=== PATIENT | male | born 1975 | race Caucasian/White ===

== ENCOUNTER → 2017-01-18 | Outpatient (CLI) | payer OTHER ==
[~2017-01-18] MED LIST: BUTA1CAP17 PO; CEPH500C PO; CETI10TA84 PO; MULT-506 PO; RANI150T3 PO; ROPI4TAB3 PO; SULF800T23 PO
--- NOTE | 2017-01-18 16:34 | DIAGNOSTIC IMAGING REPORT ---
SINUS CT CT DOSE: 277.22 mGycm HISTORY: SINUSITIS, PAIN OF RIGHT EYE TECHNIQUE: Multiaxial CT images of the paranasal sinuses were performed and reformatted in the coronal plane without the use of contrast. COMPARISON: None. FINDINGS: Partial opacification of the left frontoethmoidal recess and mild mucosal thickening within the left anterior ethmoid air cells. The frontal sinuses and sphenoid sinuses are clear. Mild mucosal thickening within the bilateral maxillary sinuses. There is a 2 cm retention cyst within the floor the left maxillary sinus. Small left-sided zulema bullosa. The mastoid air cells are clear. No fluid levels within the paranasal sinuses. Mild right nasal septal deviation. The bilateral maxillary ostia are partially opacified. The lamina papyracea and orbital floors are intact. The globes and retrobulbar fat are maintained. The visualized brain parenchyma is unremarkable. IMPRESSION: Mild mucosal thickening within the paranasal sinuses as described above. The orbits are unremarkable. No fluid levels within the paranasal sinuses. Electronically signed by: Edy Corbett M.D. 01/18/2017 4:32 PM Dictated Date/Time: 01/18/2017 4:27 PM
== END | disposition home or self-care (01) ==
LOC: C.CTS 15:59
PROVIDERS: ATTEND Family Medicine
DX: J30.9 Allergic rhinitis, unspecified (principal); H57.11 Ocular pain, right eye

== ENCOUNTER 2017-02-18 21:24 | Emergency (ER) | payer OTHER ==
[~2017-02-18] VITALS: Ht 167.6 cm; Wt 95.9 kg
[~2017-02-18 21:24] MED LIST changes: -CEPH500C PO; -CETI10TA84 PO; -MULT-506 PO; -RANI150T3 PO; -ROPI4TAB3 PO; -SULF800T23 PO
[2017-02-18 21:32] VITALS: TEMP 36.6; Ht 167.6 cm; Wt 95.9 kg
[2017-02-18] MEDS ORDERED: IBUPROFEN 600 MG TAB PO STA (21:42)
--- NOTE | 2017-02-18 22:09 | DIAGNOSTIC IMAGING REPORT ---
RIGHT TOE(S) MIN 2 VIEWS CLINICAL HISTORY: right great toe pain/injury Right trauma. Pain. COMPARISON: None. DISCUSSION: The bones and joint spaces appear intact. There is no evidence of fracture, dislocation or bony disease. There is no evidence for soft tissue swelling. IMPRESSION: Negative study. Electronically signed by: Loi Linton M.D. 02/18/2017 10:07 PM Dictated Date/Time: 02/18/2017 10:07 PM
--- NOTE | 2017-02-18 22:19 | EMERGENCY ROOM VISIT NOTE ---
ED Visit Note First contact with patient: 21:37 CHIEF COMPLAINT: Right great toe injury HISTORY OF PRESENT ILLNESS: This 41-year-old male presents the ER with chief complaint of right great toe injury. The patient states that he tripped 2 days ago and injured his right great toe. The patient states he feels numbness and tingling in the toe. The patient denies any foot pain. REVIEW OF SYSTEMS: 6 system review was performed and was negative unless stated otherwise in history of present illness. PMH: The patient is healthy; back surgery, ankle surgery, stomach surgery SOCIAL HISTORY: Patient lives with his girlfriend. The patient denies any tobacco or alcohol use. PHYSICAL EXAM: Vital Signs: Were reviewed Reviewed Nurse's notes. GENERAL: 41- year-old white male appears in no acute distress. MENTAL Status: Alert and oriented 3. RIGHT FOOT: No gross bony deformity noted. No erythema or edema noted. The patient's tenderness palpation over the entire great toe. Limited range of motion secondary to pain. EMERGENCY DEPARTMENT COURSE: The patient was evaluated. The patient was given Motrin 600 mg by mouth for pain. X-ray of the right great toe was ordered and interpreted by the radiologist and myself. DIAGNOSTICS:RIGHT TOE(S) MIN 2 VIEWS CLINICAL HISTORY: right great toe pain/injury Right trauma. Pain. COMPARISON: None. DISCUSSION: The bones and joint spaces appear intact. There is no evidence of fracture, dislocation or bony disease. There is no evidence for soft tissue swelling. IMPRESSION: Negative study. Electronically signed by: Loi Linton M.D. 02/18/2017 10:07 PM The patient was informed of the findings. The patient was independently evaluated by Dr. Leal who agrees with treatment plan. The patient was placed in a postop shoe. The patient was discharged home in stable condition. DIAGNOSIS: Right great toe contusion DISCHARGE INSTRUCTIONS & TREATMENT: Ibuprofen 600 mg every 6 hours with food for pain. Wear the postop shoe until pain is tolerable wearing a normal shoe. If symptoms persist or worsen, follow-up with your family doctor. Problem List Medical Problems: (1) FX MEDIAL MALLEOLUS-CLOS Status: Resolved (2) FX METATARSAL-CLOSED Status: Resolved (3) POSTLAMINECT SYND-LUMBAR Status: Chronic (4) REFLEX SYMPATHETIC DYSTROPHY, LOWER LIMB Status: Chronic Current/Historical Medications Scheduled Ropinirole Hydrochloride (Requip), 4 MG PO HS Scheduled PRN Bcleiakkfw-Fegnkbqmlzklx-Pqapx (Fioricet), 1 TAB PO BID PRN for Pain Cetirizine (Zyrtec), 10 MG PO DAILY PRN for ALLERGIC REACTION Ranitidine Hcl (Zantac), 150 MG PO BID PRN for Indigestion Allergies Coded Allergies: Fentanyl (Verified Allergy, Unknown, Vomiting, 08/17/15) Penicillins (Verified Allergy, Unknown, 08/17/15) Vital Signs Date Time Temp Pulse Resp B/P Pulse Ox O2 Delivery O2 Flow Rate FiO2 02/18/17 21:32 36.6 67 18 135/81 96 Room Air Medications Administered Medications (Trade) Dose Ordered Sig/Fletcher Route Start Time Stop Time Status Last Admin Dose Admin Ibuprofen (Motrin Tab) 600 mg NOW STAT PO 02/18/17 21:42 02/18/17 21:43 DC 02/18/17 22:07 600 MG Departure Information Referrals Fam Perry D.OJanes (PCP) Patient Instructions My [facility]
--- NOTE | 2017-02-18 22:20 | EMERGENCY ROOM VISIT NOTE ---
ED Visit Note First contact with patient: 21:37 I did evaluate and examine this patient myself. I did guide management for the patient. I agree with the APC's assessment as discussed. Please see the APC's dictation for further details. I did independently review the x-rays. There is no fracture. He will follow up with his doctor.
[2017-02-18 22:24] VITALS: BP 123/73; PULSE 63; O2SAT 96
[2017-03-17] MEDS ORDERED: MULT-506 PO (10:14)
[2017-03-17] MEDS ORDERED: ROPI4TAB3 PO (13:40)
== END 2017-02-18 22:32 | disposition home or self-care (01) ==
LOC: C.EDB 21:24 → C.EDD 22:32
DX: S90.111A Contusion of right great toe without damage to nail, initial encounter (principal); W01.0XXA Fall on same level from slipping, tripping and stumbling without subsequent striking against object, initial encounter; M96.1 Postlaminectomy syndrome, not elsewhere classified; G90.529 Complex regional pain syndrome I of unspecified lower limb

== ENCOUNTER → 2017-02-28 | Outpatient (CLI) | payer OTHER ==
[~2017-02-28] MED LIST changes: +CEPH500C PO; +CETI10TA84 PO; +MULT-506 PO; +RANI150T3 PO; +ROPI4TAB3 PO; +SULF800T23 PO
--- NOTE | 2017-02-28 16:00 | DIAGNOSTIC IMAGING REPORT ---
CT SCAN OF THE PARANASAL SINUSES CLINICAL HISTORY: Chronic sinusitis. Nasal septum deviation. COMPARISON STUDY: CT scan of the paranasal sinuses dated 01/18/2017. TECHNIQUE: High-resolution CT scan of the paranasal sinuses is performed. Images are reviewed in the axial, sagittal, and coronal planes. IV contrast was not administered for this examination. The examination is performed using the fusion protocol. CT DOSE: 615.99 mGy.cm FINDINGS: Maxillary antra: There is mild nodular mucosal thickening seen bilaterally. A retention cyst is suggested on the left measuring up to 1.7 cm. Anterior ethmoid sinuses: Trace mucosal thickening is seen bilaterally. Posterior ethmoid sinuses: Clear. Sphenoid sinuses: Trace mucosal thickening is seen on the left. Clear on the right. Frontal sinuses: Trace mucosal thickening is seen on the left. Clear on the right. Ostiomeatal complexes: Pain bilaterally, with significant narrowing of the left secondary to mucosal thickening. Frontoethmoidal and sphenoethmoidal recesses: Patent bilaterally. The left sphenoethmoidal recess is narrowed by mucosal thickening. Carotid arteries: The carotid arteries are covered and without septal attachments. Ethmoid roofs: There is slightly asymmetric elevation of the right ethmoid roof as compared to the left. Nasal turbinates: There is zulema bullosa of the left middle nasal turbinate. Nasal septum: There is minimal leftward deviation of the bony nasal septum. Optic nerves: Covered. Orbits: The bony orbits are intact. Orbital contents are normal in appearance. Calvarium: The imaged calvarium is normal in appearance Mastoid air cells: Well pneumatized. Brain parenchyma: Partially visualized brain parenchyma is within normal limits. IMPRESSION: Mild paranasal sinus disease as above, not significantly changed from 01/18/2017. Electronically signed by: Blake Whipple M.D. 02/28/2017 3:59 PM Dictated Date/Time: 02/28/2017 3:54 PM
== END | disposition home or self-care (01) ==
LOC: C.CTS 15:43
DX: J34.2 Deviated nasal septum (principal); J32.9 Chronic sinusitis, unspecified; J34.3 Hypertrophy of nasal turbinates; R09.81 Nasal congestion

== ENCOUNTER → 2017-03-14 | Outpatient (CLI) | payer OTHER ==
[2017-03-14 16:35] LABS: BASO % 0.2 %; BASO ABS # 0.02 K/uL (0-0.2); COMPLETE YES; EOS % 2.3 %; HEMATOCRIT 43.7 % (42-52); IG% 0.4 %; LYMPH % 19.4 %; LYMPH ABS # 1.61 K/uL (1.2-3.4); MEAN CELL VOLUME 85.9 fL (80-100); MEAN CORPUSCULAR HEMOGLOBIN 28.5 pg (25-34); MEAN CORPUSCULAR HGB CONC 33.2 g/dl (32-36); MEAN PLATELET VOLUME 8.9 fL (7.4-10.4); MONO % 5.9 %; NEUT % 71.8 %; PLATELET COUNT 348 K/uL (130-400); RED BLOOD COUNT 5.09 M/uL (4.7-6.1); WHITE BLOOD COUNT 8.32 K/uL (4.8-10.8)
[2017-03-14 16:44] LABS: PARTIAL THROMBOPLASTIN RATIO 1.1; PROTHROMBIN TIME (PATIENT) 10.6 SECONDS (9.0-12.0)
[2017-03-14 16:55] LABS: POTASSIUM 3.6 mmol/L (3.5-5.1)
== END | disposition home or self-care (01) ==
LOC: C.LAB 15:30
DX: Z01.818 Encounter for other preprocedural examination (principal)

== ENCOUNTER 2017-03-15 13:58 | Emergency (ER) | payer OTHER ==
[~2017-03-15] VITALS: Ht 167.6 cm; Wt 95.6 kg
[~2017-03-15 13:58] MED LIST changes: -CEPH500C PO; -CETI10TA84 PO; -MULT-506 PO; -RANI150T3 PO; -ROPI4TAB3 PO; -SULF800T23 PO
[2017-03-15 14:08] VITALS: TEMP 36.7; Ht 167.6 cm; Wt 95.6 kg
[2017-03-15] MEDS ORDERED: CEFTRIAXONE SOD INJ 1 GM ADDVIAL IV STA (14:22)
[2017-03-15 14:39] LABS: BASO % 0.3 %; BASO ABS # 0.02 K/uL (0-0.2); COMPLETE YES; EOS % 2.9 %; HEMATOCRIT 44.2 % (42-52); IG% 0.2 %; LYMPH % 22.4 %; LYMPH ABS # 1.49 K/uL (1.2-3.4); MEAN CELL VOLUME 85.2 fL (80-100); MEAN CORPUSCULAR HEMOGLOBIN 27.6 pg (25-34); MEAN CORPUSCULAR HGB CONC 32.4 g/dl (32-36); MEAN PLATELET VOLUME 8.7 fL (7.4-10.4); MONO % 5.9 %; NEUT % 68.3 %; PLATELET COUNT 361 K/uL (130-400); RED BLOOD COUNT 5.19 M/uL (4.7-6.1); WHITE BLOOD COUNT 6.66 K/uL (4.8-10.8)
[2017-03-15 14:55] LABS: BUN/CREATININE RATIO 12.8 (10-20); CREATININE 1.3 mg/dl (0.60-1.40)
[2017-03-15] MEDS ORDERED: SULFAMETHOXAZOLE/TRIMETHOPRIM DS 800/160MG TAB PO STA (15:31)
[2017-03-15] MEDS ORDERED: CEPH500C PO (15:46)
[2017-03-15] MEDS ORDERED: SULF800T23 PO (15:46)
--- NOTE | 2017-03-15 15:47 | EMERGENCY ROOM VISIT NOTE ---
History First contact with patient: 14:13 Chief Complaint: SWELLING TO EXTREMITY Stated Complaint: SWELLING TO LEFT LEG History of Present Illness The patient is a 41 year old male who presents to the Emergency Room with complaints of left leg redness, swelling, warmth and drainage. The patient states that last Saturday he was walking the dogs and the retractable leash pulled across his leg causing an abrasion. He states that it seemed to be doing well until 2 days ago when he developed redness, swelling, warmth and drainage. The patient's family member has been putting antibiotic ointment on the open area and they state because of this the redness has actually subsided. He has not had any fevers. He has not had any pain in his chest or trouble breathing. He rates his discomfort a 9/10. Review of Systems A 10 system review of systems was completed with positives and pertinent negatives listed in the HPI. Past Medical/Surgical History Medical Problems: (1) FX MEDIAL MALLEOLUS-CLOS (2) FX METATARSAL-CLOSED (3) POSTLAMINECT SYND-LUMBAR (4) REFLEX SYMPATHETIC DYSTROPHY, LOWER LIMB Family History CVA Diabetes mellitus Social History Smoking Status: Never Smoker Drug Use: none Marital Status: single Occupation Status: employed Current/Historical Medications Scheduled Cephalexin Monohydrate (Keflex), 500 MG PO QID Multivitamin (Multivitamin), 1 TAB PO DAILY Ropinirole Hydrochloride (Requip), 4 MG PO HS Sulfa/Trimethoprim (Bactrim Ds 800MG/160MG), 1 TAB PO BID Scheduled PRN Cetirizine (Zyrtec), 10 MG PO DAILY PRN for ALLERGIC REACTION Ranitidine Hcl (Zantac), 150 MG PO BID PRN for Indigestion Allergies Coded Allergies: Fentanyl (Verified Allergy, Severe, Vomiting, 03/15/17) Penicillins (Verified Allergy, Unknown, UNKNOWN, 03/15/17) Uncoded Allergies: STEROIDS (Allergy, Unknown, EYE PROBLEM--OPTHAMOLOGIST STATES NO STEROIDS, 03/14/17) Physical Exam Vital Signs Date Time Temp Pulse Resp B/P (MAP) Pulse Ox O2 Delivery O2 Flow Rate FiO2 03/15/17 16:02 66 16 135/84 98 03/15/17 14:08 36.7 76 16 120/74 96 Room Air Physical Exam VITALS: Vitals are noted on the nurse's note and reviewed by myself. Vital signs stable. The patient is afebrile. GENERAL: This is a 41-year-old male, in no acute distress, nondiaphoretic, well- developed well-nourished. SKIN: There is a somewhat superficial abrasion to the left anterior tib-fib that is transverse. There is some granulation tissue and mild serous sanguinous drainage. There is erythema surrounding this wound. There does not appear to be any involvement of the joints. There is no tenting of the skin. Capillary reflex less than 2 seconds. HEAD: Normocephalic atraumatic. EARS: The external ears are normal in appearance. EYES: Pupils equal round and reactive to light and accommodation. Conjunctivae without injection, sclerae without icterus. Extraocular movements intact. NOSE: Patent, turbinates without inflammation or discharge. MOUTH: Mucous membranes moist. Tonsils are not enlarged. Pharynx without erythema or exudate. Uvula midline. Airway patent. Tongue does not deviate. NECK: Supple without nuchal rigidity. No lymphadenopathy. No thyromegaly. Cervical spine is nontender. No JVD. HEART: Regular rate and rhythm without murmurs gallops or rubs. LUNGS: Clear to auscultation bilaterally without wheezes, rales or rhonchi. No dullness to percussion. No retractions or accessory muscle use. MUSCULOSKELETAL: Skin to the left lower extremity as above. Full range of motion without joint tenderness in all extremities. There is tenderness to palpation in the area of erythema, warmth and open wound. Normal gait. Strength 5/5 throughout. NEURO: Patient was alert and oriented to person place and time. No focal neurological deficits. Medical Decision & Procedures Laboratory Results 03/15/17 14:20 Red Blood Count 5.19, Mean Corpuscular Volume 85.2, Mean Corpuscular Hemoglobin 27.6, Mean Corpuscular Hemoglobin Concent 32.4, Mean Platelet Volume 8.7, Neutrophils (%) (Auto) 68.3, Lymphocytes (%) (Auto) 22.4, Monocytes (%) (Auto) 5.9, Eosinophils (%) (Auto) 2.9, Basophils (%) (Auto) 0.3, Neutrophils # (Auto) 4.56, Lymphocytes # (Auto) 1.49, Monocytes # (Auto) 0.39, Eosinophils # (Auto) 0.19, Basophils # (Auto) 0.02 03/15/17 14:20 Test 03/15/17 14:20 White Blood Count 6.66 K/uL (4.8-10.8) Red Blood Count 5.19 M/uL (4.7-6.1) Hemoglobin 14.3 g/dL (14.0-18.0) Hematocrit 44.2 % (42-52) Mean Corpuscular Volume 85.2 fL (80-100) Mean Corpuscular Hemoglobin 27.6 pg (25-34) Mean Corpuscular Hemoglobin Concent 32.4 g/dl (32-36) Platelet Count 361 K/uL (130-400) Mean Platelet Volume 8.7 fL (7.4-10.4) Neutrophils (%) (Auto) 68.3 % Lymphocytes (%) (Auto) 22.4 % Monocytes (%) (Auto) 5.9 % Eosinophils (%) (Auto) 2.9 % Basophils (%) (Auto) 0.3 % Neutrophils # (Auto) 4.56 K/uL (1.4-6.5) Lymphocytes # (Auto) 1.49 K/uL (1.2-3.4) Monocytes # (Auto) 0.39 K/uL (0.11-0.59) Eosinophils # (Auto) 0.19 K/uL (0-0.5) Basophils # (Auto) 0.02 K/uL (0-0.2) RDW Standard Deviation 41.7 fL (36.4-46.3) RDW Coefficient of Variation 13.5 % (11.5-14.5) Immature Granulocyte % (Auto) 0.2 % Immature Granulocyte # (Auto) 0.01 K/uL (0.00-0.02) Anion Gap 11.0 mmol/L (3-11) Est Creatinine Clear Calc Drug Dose 79.3 ml/min Estimated GFR () 77.5 Estimated GFR (Non- 66.8 BUN/Creatinine Ratio 12.8 (10-20) Total Bilirubin 0.6 mg/dl (0.2-1) Aspartate Amino Transf (AST/SGOT) 13 U/L (15-37) Alanine Aminotransferase (ALT/SGPT) 26 U/L (12-78) Total Protein 7.7 gm/dl (6.4-8.2) Albumin 3.9 gm/dl (3.4-5.0) Globulin 3.8 gm/dl (2.5-4.0) Albumin/Globulin Ratio 1.0 (0.9-2) Medications Administered Medications (Trade) Dose Ordered Sig/Fletcher Route Start Time Stop Time Status Last Admin Dose Admin Ceftriaxone Sodium (Rocephin Inj) 1 gm NOW STAT IV 03/15/17 14:22 03/15/17 14:24 DC 03/15/17 14:38 1 GM Trimethoprim/ Sulfamethoxazole (Septra Ds 800/ 160MG Tab) 1 tab NOW STAT PO 03/15/17 15:31 03/15/17 15:32 DC 03/15/17 15:31 1 TAB ED Course The patient was seen and examined. Previous visits were reviewed. The patient does not have a fever or leukocytosis. A wound culture is pending. The patient presents to the emergency department with isolated left lower extremity cellulitis secondary to an abrasion. He is nontoxic in appearance, afebrile without leukocytosis. The patient was given 1 g IV Rocephin. He was given 1 oral Bactrim. He'll be placed on Bactrim and Keflex. He should return to the ER in 24-48 hours for a recheck. He was advised he may need additional IV antibiotics or potentially admission to the hospital if the cellulitis is worsening or not improving. The patient was also seen and examined by who agrees with the assessment and treatment plan. Medical Decision The differential diagnosis includes cellulitis, abscess, among others Impression Primary Impression: Cellulitis, leg Departure Information Dispostion Home / Self-Care Condition GOOD Prescriptions Sulfa/Trimethoprim (Bactrim Ds 800MG/160MG) Tab 1 TAB PO BID for 7 Days, #14 TAB Prov: Criss Bedoya PA-C 03/15/17 Cephalexin Monohydrate (Keflex) 500 Mg Cap 500 MG PO QID for 7 Days, #28 CAP Prov: Criss Bedoya PA-C 03/15/17 Referrals Fam Perry D.O. (PCP) Forms HOME CARE DOCUMENTATION FORM, IMPORTANT VISIT INFORMATION, WORK / SCHOOL INSTRUCTIONS Patient Instructions Cellulitis - [facility], My [facility] Additional Instructions Clean the area with soap and water 1-2 times daily. You may try warm soaks. You may continue the antibiotic ointment. Bactrim and Keflex as prescribed, until finished Recheck with the emergency department or family doctor in 24-48 hours. Return sooner with any worsening redness, swelling, warmth, fevers. Work Instructions Return To Work: 3 days Problem Qualifiers Primary Impression: Cellulitis, leg Laterality: left Qualified Codes: L03.116 - Cellulitis of left lower limb
[2017-03-15 16:02] VITALS: BP 135/84; PULSE 66; O2SAT 98
--- NOTE | 2017-03-15 16:06 | EMERGENCY ROOM VISIT NOTE ---
ED Visit Note First contact with patient: 14:13 I have personally seen and evaluated the patient with the physician household assistant. I agree with the diagnostic/management decisions and have personally been involved in these decisions and agree with the diagnosis.
[2017-03-15 17:18] LABS: CALCIUM 9.6 mg/dl (8.5-10.1)
[2017-03-17] MEDS ORDERED: MULT-506 PO (10:14)
[2017-03-17] MEDS ORDERED: ROPI4TAB3 PO (13:40)
== END 2017-03-15 16:06 | disposition home or self-care (01) ==
LOC: C.EDB 13:59 → C.EDD 16:06
DX: L03.116 Cellulitis of left lower limb (principal); S80.812A Abrasion, left lower leg, initial encounter; W22.8XXA Striking against or struck by other objects, initial encounter; Y92.89 Other specified places as the place of occurrence of the external cause; Y93.K1 Activity, walking an animal; Z82.49 Family history of ischemic heart disease and other diseases of the circulatory system; Z83.3 Family history of diabetes mellitus; Z79.899 Other long term (current) drug therapy

== ENCOUNTER 2017-03-17 17:59 | Emergency (ER) | payer OTHER ==
[~2017-03-17] VITALS: Ht 167.6 cm; Wt 94.5 kg
[~2017-03-17 17:59] MED LIST changes: -BUTA1CAP17 PO; +CEPH500C PO; +MULT-506 PO; +ROPI4TAB3 PO; +SULF800T23 PO
[2017-03-17 18:02] VITALS: BP 134/86; PULSE 86; TEMP 36.9; O2SAT 95; Ht 167.6 cm; Wt 94.5 kg
--- NOTE | 2017-03-17 18:23 | EMERGENCY ROOM VISIT NOTE ---
History Report prepared by Lorenzo: Igor Syed Under the Supervision of: Dr. Fercho Elizondo M.D. First contact with patient: 18:04 Chief Complaint: WOUND RECHECK Stated Complaint: WOUND RECHECK Nursing Triage Summary: triage note: pt presents for recheck of wound to left leg. "i think it might be a bit better." pt reports "i have dots on my arms and they are itchy." History of Present Illness The patient is a 41 year old male who presents to the Emergency Room for left leg wound recheck. The patient had a wound from a dog leash about 8 days ago. 3 days ago, the patient started having erythema and swelling around the wound area. He was evaluated in the Emergency Room 2 days ago and he was placed on antibiotics with some relief. The patient reports some discharge from the wound. As per , the wound has neither improved nor worsened. He currently rates a pain intensity of 3/10. Yesterday, the patient started having red bumps on arms and legs bilaterally that are itchy. He had one episode of vomiting last night with shakiness. He denies fevers, chills, trouble swallowing, chest pain, shortness of breath, or any other complaints. He denies any history of diabetes. His tetanus shot is up-to-date. Source of History: patient Onset: about 8 days ago Position: leg (left) Symptom Intensity: 3/10 Quality: other (wound) Modifying Factors (Relieving): other (antibiotic with some relief) Associated Symptoms: + vomiting, No fevers, No chills, No chest pain, No SOB Review of Systems See HPI for pertinent positives & negatives. A total of 10 systems reviewed and were otherwise negative. Past Medical & Surgical Medical Problems: (1) FX MEDIAL MALLEOLUS-CLOS (2) FX METATARSAL-CLOSED (3) POSTLAMINECT SYND-LUMBAR (4) REFLEX SYMPATHETIC DYSTROPHY, LOWER LIMB Family History CVA Diabetes mellitus Social History Smoking Status: Never Smoker Drug Use: none Marital Status: single Occupation Status: employed Current/Historical Medications Scheduled Cephalexin Monohydrate (Keflex), 500 MG PO QID Multivitamin (Multivitamin), 1 TAB PO DAILY Ropinirole Hydrochloride (Requip), 4 MG PO HS Sulfa/Trimethoprim (Bactrim Ds 800MG/160MG), 1 TAB PO BID Scheduled PRN Cetirizine (Zyrtec), 10 MG PO DAILY PRN for Allergy Symptoms Ranitidine Hcl (Zantac), 150 MG PO BID PRN for Indigestion Allergies Coded Allergies: Fentanyl (Verified Allergy, Severe, Vomiting, 03/15/17) Penicillins (Verified Allergy, Unknown, UNKNOWN, 03/15/17) Uncoded Allergies: STEROIDS (Allergy, Unknown, EYE PROBLEM--OPTHAMOLOGIST STATES NO STEROIDS, 03/14/17) Physical Exam Vital Signs Date Time Temp Pulse Resp B/P (MAP) Pulse Ox O2 Delivery O2 Flow Rate FiO2 03/17/17 18:02 36.9 86 18 134/86 95 Room Air Physical Exam General: Non-ill appearing, young male, in no acute distress. HEENT: Normal cephalic atraumatic. Pupils are equal round and reactive to light. Extraocular movements are intact. Oropharynx is pink with moist mucous membranes. No swelling of the mouth lips or tongue. Neck: Supple with a midline trachea. No meningeal signs or stiffness, no JVD or bruits. No Stridor. Chest: Clear to auscultation bilaterally. No wheezes or rhonchi. No increased work of breathing. Heart: regular rate and rhythm. Abdomen: Soft nontender, nondistended without rebound guarding or rigidity. Extremities: No cyanosis clubbing or edema. No calf tenderness or assymetry Left lower extremity has a wound that is healing by secondary intention, no cellulitis, some yellow serosanguineous, no pus. Spine/Back. Non tender to palpation. No CVA tenderness Skin: Good turgor without rashes. Arms and legs have areas consistent with poison val, no hives, or allergic reaction. Neurologic exam: Cranial nerves two through 12 are intact. Motor and sensation are intact and symmetrical throughout. Medical Decision & Procedures ED Course 1803: Past medical records reviewed. The patient was evaluated in room B10, and a complete history and physical examination were performed. 1820: Upon reevaluation, the patient is resting comfortably. I discussed the results and treatment plan with him. He verbalized agreement of the treatment plan. The patient was discharged home. Medical Decision Differential diagnosis includes but is not limited to healing wound, wound infection, cellulitis, poison val. Medication Reconciliation: I attest that I have personally reviewed the patient' s current medication list. Blood pressure Screening: Patient was found to have normal blood pressure on screening and does not require follow-up. This patient comes in for wound recheck he seems to be doing well. He is afebrile here. He had episode last night where he vomited and was pale but this may be unrelated as his been doing well otherwise. He also has a rash which is consistent with poison val. He has no evidence of allergic reaction at this point. There is no evidence of cellulitis around the wound and the wound is healing. It will take a while for this to heal in. He has nothing to suggest sepsis at this point. And he looks well. He is asymptomatic with exception of some mild pain around the wound site and itching from the poison val. I do think he would benefit from with the wound care clinic. I cleansed the wound and there is some yellowish serous sanguinous drainage. Bacitracin sterile dressing applied. he should continue the antibiotics use Benadryl if needed for itching and was warned that it could make him drowsy and do not take before drinking, driving, working . our case management team is going to get an appointment with care clinic in the next couple days for recheck. He should return to ER if: fever, redness or warmth, any new problems or concerns. Impression Primary Impression: Healing wound Additional Impression: Poison val Scribe Attestation The scribe's documentation has been prepared under my direction and personally reviewed by me in its entirety. I confirm that the note above accurately reflects all work, treatment, procedures, and medical decision making performed by me. Departure Information Dispostion Home / Self-Care Referrals Fam Perry D.O. (PCP) Forms HOME CARE DOCUMENTATION FORM, IMPORTANT VISIT INFORMATION, WORK / SCHOOL INSTRUCTIONS Patient Instructions My [facility] Additional Instructions Rest. Continue to use your antibiotics and continue to clean the wound and dress with bacitracin and sterile dressing. May use Benadryl 25 mg every 6 hours as needed for itching. Benadryl may make you drowsy and do not take before drinking, driving, working Follow-up with the wound care center in 1-2 days for recheck Return if: Fever or chills, worsening symptoms, redness or warmth, any new problems or concerns. Problem Qualifiers
[2017-03-17] MEDS ORDERED: CETI10TA84 PO (21:20)
[2017-03-17] MEDS ORDERED: RANI150T3 PO (22:54)
== END 2017-03-17 18:30 | disposition home or self-care (01) ==
LOC: C.EDB 18:00
DX: Z48.00 Encounter for change or removal of nonsurgical wound dressing (principal); L23.7 Allergic contact dermatitis due to plants, except food

== ENCOUNTER 2017-03-29 08:16 | Day surgery (SDC) | payer OTHER ==
[2017-03-14 10:14] VITALS: Ht 167.6 cm; Wt 93.2 kg
[~2017-03-29] VITALS: Ht 167.6 cm; Wt 93.2 kg
[~2017-03-29 08:16] MED LIST changes: -CEPH500C PO; +CETI10TA84 PO; +CLINDAMYCIN PHOS 150 MG/ML 2 ML VIAL IV SCH; +EpINEphrine INJ 1MG/ML AMP 1 MG/ML AMP ONE; +LIDOCAINE 4% MPF SOAK 5 ML = 1 DOSE TOP ONE; +LIDOCAINE/EPINEPHRINE 1% INJ 50 ML VIAL ONE; +OXYMETAZOLINE HCL 0.05% NA SPR 15 ML BTL SCH; +RANI150T3 PO; -SULF800T23 PO
[2017-03-29] MEDS: LACTATED RINGER'S 1000ML 1,000 ML IV SCH ×2 (09:00→12:36)
[2017-03-29] MEDS ORDERED: ONDANSETRON INJ 2 MG/ML 2 ML VIAL ONE (09:26)
[2017-03-29] MEDS ORDERED: DEXAMETHASONE SOD INJ 4 MG/ML VIAL ONE (09:26)
[2017-03-29] MEDS ORDERED: MIDAZOLAM HCL 1 MG/ML 2ML VIAL ONE (09:26)
[2017-03-29] MEDS ORDERED: LIDOCAINE HCL 2% 2 ML VIAL (20MG/ML) ONE (09:26)
[2017-03-29] MEDS ORDERED: PROPOFOL IV EMULSION 10 MG/ML 20 ML VIAL IV ONE ×2 (09:26→11:20)
[2017-03-29] MEDS ORDERED: FENTANYL CITRATE INJ 50 MCG/1 ML 2 ML VIAL ONE (09:26)
--- NOTE | 2017-03-29 10:36 | History & Physical Bridge - SC ---
H&P Re-Evaluation Bridge Note: I have examined the patient, reviewed the History & Physical and in the interval since the performance of the History & Physical I have noted the following changes of clinical significance: No changes noted
[2017-03-29] MEDS ORDERED: NEOSTIGMINE METHYLSULFATE 5 MG/5 ML SYR ONE (11:21)
[2017-03-29] MEDS ORDERED: GLYCOPYRROLATE INJ 0.2 MG/ML VIAL ONE ×2 (11:21→11:55)
[2017-03-29] MEDS ORDERED: ATROPINE SULFATE 0.1 MG/ML 5ML SYR IV PRN (11:30)
[2017-03-29] MEDS ORDERED: LABETALOL HCL IV 5 MG/ML 20ML IV PRN (11:30)
[2017-03-29] MEDS ORDERED: ONDANSETRON INJ 2 MG/ML 2 ML VIAL IV PRN ×2 (11:30→12:00)
[2017-03-29] MEDS ORDERED: HYDROmorphone INJ 2 MG/ML SYR/VIAL IV PRN (11:30)
[2017-03-29] MEDS ORDERED: EpINEphrine INJ 1MG/ML AMP 1 MG/ML AMP ONE (11:31)
[2017-03-29] MEDS ORDERED: LIDOCAINE 4% MPF SOAK 5 ML = 1 DOSE TOP ONE (11:31)
[2017-03-29] MEDS ORDERED: OXYMETAZOLINE HCL 0.05% NA SPR 15 ML BTL PRN (12:00)
[2017-03-29] MEDS ORDERED: HYDROCODONE/ACETAMOPHEN 5/325MG TAB PO PRN (12:00)
--- NOTE | 2017-03-29 12:00 | Discharge Instructions ---
Discharge Instructions Date of Service Mar 29, 2017. Admission Reason for Admission: Chronic Sinusitis, Acquired Deviated Septum Discharge Discharge Diagnosis / Problem: same Discharge Goals Goal(s): Therapeutic intervention Activity Recommendations Activity Limitations: as noted below 1. LIGHT ACTIVITY AND NO NOSE BLOWING FOR 2 WEEKS 2. NO DRIVING WHILE ON NORCO . Current Hospital Diet Patient's current hospital diet: Discharge Diet Recommended Diet: Regular Diet Procedures Procedures Performed: Image Guided Bilateral Endoscopic Sinus Surgery, Revision Septoplasty, Revision Bilateral Inferior Turbinate Reduction Pending Studies Studies pending at discharge: no Medical Emergencies . Who to Call and When: Medical Emergencies: If at any time you feel your situation is an emergency, please call 911 immediately. . Non-Emergent Contact Non-Emergency issues call your: Surgeon . . "Provider Documentation" section prepared by Ezio Wiggins. . VTE Core Measure Inpt VTE Proph given/why not?: SCD's
--- NOTE | 2017-03-29 12:17 | [facility] Operative Report ---
Operative Report Operative Date Mar 29, 2017. Pre-Operative Diagnosis Chronic Sinusitis, Acquired Deviated Septum Post-Operative Diagnosis Same Procedure(s) Performed Image Guided Bilateral Endoscopic Sinus Surgery, Revision Septoplasty, Revision Bilateral Inferior Turbinate Reduction Surgeon Dr. Wiggins Camera Assembler Surgeon(s) None Estimated Blood Loss 25 ml Findings 1. Left greater than right septal deviation 2. Moderate bilateral inferior turbinate hypertrophy 3. Mucosal thickening involving the bilateral maxillary, bilateral ethmoid, and left frontal sinuses 4. Large left zulema bullosa Specimens None Anesthesia Gen. endotracheal Complication(s) None Indications The patient is a 41-year-old male with a history of chronic rhinosinusitis which has been refractory to maximal medical therapy. He had previous septoplasty and bilateral inferior turbinate reduction by another surgeon but continued to have left greater than right septal deviation and bilateral inferior turbinate hypertrophy. He was found on CT scan to have bilateral estimated complex obstruction with bilateral maxillary and ethmoid sinus mucosal thickening as well as left frontal ethmoid recess thickening. He presents for the above-mentioned procedures and an outpatient elective basis. Description of Procedure After informed consent had been obtained from the patient, the patient's wheeled to the operating room and placed on the operating room table in the supine position. Monitors were placed and after induction of general endotracheal anesthesia, the patient was prepped in usual fashion for image guided endoscopic sinus surgery. The Ninjathat fusion headset was applied to the forehead and was registered, verified, and calibrated and used for the frontal sinus portion of the case. Lidocaine and epinephrine pledgets are placed into the bilateral nasal cavities and pressure applied. The left-sided pledget was removed and a Thurston elevator was used to medialize the left middle turbinate. The left middle turbinate and lateral nasal wall were injected with 1% lidocaine with 1:100,000 epinephrine. A lidocaine and epinephrine pledget was then placed into left middle meatus. The right side was then addressed in a similar fashion. The left-sided pledget was removed and a sickle knife was used to incise the left middle turbinate longitudinally in the lateral half of the middle turbinate was removed using straight Moises-Cut forceps and powered instrumentation. Of note there was polypoid tissue within the left zulema bullosa. An uncinectomy was then performed using a Thurston elevator, straight Moises -Cut forceps, and powered instrumentation. The natural ostia of the left maxilla sinus was identified and this was enlarged anteriorly, inferiorly, and posteriorly using backbiting forceps and powered istrumentation. An anterior ethmoidectomy was then performed using powered instrumentation. A curved frontal sinus suction was then inserted into the left frontal sinus. A #6 frontal sinus balloon was then inserted into the frontal recess and inflated to 12 mars of pressure to dilate the frontal recess tract. Polypoid tissue was removed from the frontal ethmoidal recess using powered instrumentation. A lidocaine and epinephrine pledget was then placed since the left ethmoid sinus. The right side was then addressed in a similar fashion except there was no zulema bullosa on this side and no frontal sinus surgery done on the side. The septum was then injected with 1% lidocaine with 1:100,000 epinephrine. After allowing adequate time for vasoconstriction, a #15 scalpel was used to make a left hemitransfixion incision through which the left-sided mucoperichondrial and mucoperiosteal flap was elevated. The patient had a previous septoplasty and there was not much remaining quadrangular cartilage. The patient's deviation was primarily due to the caudal septum being severely shifted to the left and therefore this was weakened using a crosshatching technique and a #15 scalpel. Several half mattress 3-0 chromic sutures were used to straighten out the caudal end of the septum. A 4-0 plain gut suture on a Haseeb needle was then used to perform a quilting stitch of the mucoperichondrial and mucoperiosteal flaps bilaterally to help prevent septal hematoma. A Sibley elevator was then used to infracture and subsequently outfractured the inferior turbinates bilaterally. These were injected with 1% lidocaine with 1-100,000 epinephrine. A 2.0 mm turbinate blade using powered instrumentation was then used to perform bilateral inferior turbinoplasties in a submucosal fashion. The sinonasal cavities were then suctioned. MeroGel nasal dressing was placed in the bilateral ethmoid cavities. This marked the end of the case. The patient tolerated the procedure well there no apparent competitions. The patient was explained transferred to the recovery room in stable condition. I attest to the content of the Intraoperative Record and any orders documented therein. Any exceptions are noted below.
[2017-03-29 12:53] VITALS: TEMP 36.9
[2017-03-29 13:17] VITALS: BP 130/83; PULSE 61; O2SAT 97
--- NOTE | 2017-03-29 13:18 | Anesthesia Progress Nt - [facility] ---
Anesthesia Post Op Note Date & Time Mar 29, 2017 at 13:17 Vital Signs Pain Intensity: 2 Vital Signs Past 12 Hours Date Time Temp Pulse Resp B/P (MAP) Pulse Ox O2 Delivery O2 Flow Rate FiO2 03/29/17 12:53 36.9 62 16 137/82 (100) 97 Room Air 03/29/17 12:45 36.8 117/71 03/29/17 12:44 63 9 03/29/17 12:44 64 9 98 03/29/17 12:41 136/66 03/29/17 12:39 66 13 03/29/17 12:39 66 13 96 03/29/17 12:35 100/79 03/29/17 12:34 60 11 03/29/17 12:34 60 11 99 03/29/17 12:30 122/67 03/29/17 12:29 64 17 99 03/29/17 12:29 63 17 03/29/17 12:25 113/69 03/29/17 12:24 72 15 100 03/29/17 12:24 72 15 03/29/17 12:20 128/66 03/29/17 12:19 72 8 03/29/17 12:19 72 8 100 03/29/17 12:15 145/76 03/29/17 12:14 76 12 99 03/29/17 12:14 76 12 03/29/17 12:10 145/76 03/29/17 12:10 36.6 80 16 145/76 99 Mask 6 03/29/17 08:36 36.6 55 16 114/75 (88) 95 Room Air Notes Mental Status: alert / awake / arousable, participated in evaluation Pt Amnestic to Procedure: Yes Nausea / Vomiting: adequately controlled Pain: adequately controlled Airway Patency, RR, SpO2: stable & adequate BP & HR: stable & adequate Hydration State: stable & adequate Anesthetic Complications: no major complications apparent
== END 2017-06-18 15:10 | disposition home or self-care (01) ==
LOC: X.SURG 08:16
DX: J34.2 Deviated nasal septum (principal); J34.3 Hypertrophy of nasal turbinates; J32.9 Chronic sinusitis, unspecified; G47.33 Obstructive sleep apnea (adult) (pediatric); F41.9 Anxiety disorder, unspecified; G25.81 Restless legs syndrome; G47.61 Periodic limb movement disorder; Z87.891 Personal history of nicotine dependence; Z79.899 Other long term (current) drug therapy

== ENCOUNTER 2021-10-14 17:38 | Inpatient (IN) ==
[2021-10-14] MEDS ORDERED: CYCLOBENZAPRINE HCL 10 MG TAB PO STA (18:19)
[2021-10-14] MEDS ORDERED: KETOROLAC TROMETHAMINE 15 MG/ML VIAL IV STA (18:19)
[2021-10-14] MEDS ORDERED: SODIUM CHLORIDE 0.9% 1000ML 1,000 ML IV ONE (18:19)
--- NOTE | 2021-10-14 18:45 | Emergency Department Note ---
Impression & Plan Bilateral lower extremity pain, Ambulatory dysfunction ED Provider Note CHIEF COMPLAINT: Bilateral leg cramping HISTORY OF PRESENTING ILLNESS: This is a 46-year-old male who presents to the em ergency department by private vehicle with complaint of bilateral leg cramping that started today around 1 PM. Patient states he was doing some physical labor today and thought he may have strained the muscles in his legs, but he denies any known injury. He states initially he started to have cramps in the left leg behind his calf and hamstring, and about half an hour later he started having the cramps in his right leg as well. He states that he has had cramps like this many times in the past and he is usually able to stretch them out, but he tried that today and the cramps have just gotten persistently worse. He states that he is having pain every time he tries to walk on the legs and rates the pain 8/10. He denies pain at rest. He did not try taking any medications for pain. He does note that he did not drink very much water today and may be dehydrated. He also notes a history of restless leg syndrome and takes medication for this. He denies any back pain or back injuries. He denies any numbness/tingling or weakness in the legs. He denies any fevers or chills. He denies any unusual rash. He denies any bowel or bladder dysfunction. REVIEW OF SYSTEMS: A complete 10 point review of systems was reviewed with the patient with pertinent positives and negatives as per history of present illness. All else were negative. PAST MEDICAL HISTORY: Restless leg syndrome, diverticulitis, history of bowel resection, ankle surgery, and lumbosacral partial discectomy surgery, cervical spine fusion surgery SOCIAL HISTORY: Lives at home, he denies tobacco use ALLERGIES: Reviewed in chart and with the patient PHYSICAL EXAM: CONSTITUTIONAL: Pleasant and cooperative. Nontoxic-appearing and in no acute distress, but appears uncomfortable from pain. Well appearing and well nourished. HEENT: Normocephalic, atraumatic. NECK: Supple, full active range of motion without discomfort. RESPIRATORY: Clear to auscultation bilaterally with no wheezing, crackles, rhonchi or stridor. Equal expansion bilaterally. CARDIOVASCULAR: Regular rate and rhythm with no murmurs, rubs or gallops. Normal peripheral perfusion. No edema. GASTROINTESTINAL: Soft, nontender to palpation throughout, nondistended. No palpable masses or HSM. Bowel sounds present in all quadrants. No CVA tendern ess bilaterally. BACK: No midline tenderness to palpation of the thoracic or lumbar spine. No paraspinous muscle spasms noted. MUSCULOSKELETAL: 5/5 strength in both lower extremities, dorsiflexion and plantarflexion intact and equal bilaterally. Patellar and Achilles deep tendon reflexes 2+ and equal bilaterally. Sensation intact to light and sharp touch bilaterally with no focal deficits. Full range of motion of the knees and ankles without discomfort. Increased pain in the posterior legs with dorsiflexion and plantarflexion and with straight leg raise bilaterally. No tenderness to palpation throughout the legs. No calf swelling or tenderness. No erythema or warmth. 2+ DP and PT pulses bilaterally, brisk capillary refill. INTEGUMENTARY: No rash or other significant dermatologic conditions noted. NEUROLOGIC: Alert and oriented X 4 with normal affect. Normal speech. ED COURSE AND MEDICAL DECISION MAKING: CC: Patient presenting with complaint of bilateral leg cramping DIFFERENTIAL DIAGNOSIS: Includes, but not limited to muscle spasm, muscle sprain/strain, dehydration, electrolyte abnormality, rhabdomyolysis, restless leg syndrome, lumbar radiculopathy, sciatica, herniated disc, cauda equina, among others. INTERPRETATION OF LABS: No leukocytosis, no anemia, normal platelets, no significant electrolyte abnormalities, normal renal function, normal liver enzymes. Mildly elevated total creatinine kinase. MEDICATION RECONCILIATION: I attest that I have personally reviewed the patient's current medication list. INITIAL VITAL SIGNS REVIEW: I reviewed the patient's initial vital signs and interpret them as follows: T: Afebrile; BP: Hypertensive; HR: Within normal limits; RR: Within normal limits; Pulse Ox: Within normal limits on room air. MDM SUMMARY: Patient was evaluated at bedside, history and physical exam performed. Patient is alert and oriented, in no acute distress, resting calmly in stretcher. Patient is neurovascularly intact with no focal deficits. He does have increased muscle spasms with dorsiflexion and plantarflexion, but has normal strength and normal sensation. He has normal reflexes. He denies bowel or bladder dysfunction. He denies any back pain or back injuries, though he does note history of a previous partial discectomy in the lumbar spine, and a history of bulging disks in his lower back. The patient notes that he was not drinking very much today and thinks he could be dehydrated. Orders were placed for labs including a total CK, IV fluid bolus for hydration, IV Toradol for pain and p.o. Flexeril for muscle relaxer. Patient discussed with Dr. Diaz, who also evaluated the patient and agrees with my assessment, plan, and disposition. Labs were reviewed, noting a mildly elevated total CK, but this was not felt to be clinically significant. On reassessment, the patient states he is not any more comfortable and still having significant cramping in the back of both legs, though he states the right is slightly worse than the left now. He has not been able to get out of bed to ambulate to go use the bathroom because of the cramping. Additional order was placed for IM Valium 10 mg to help alleviate muscle cramps. The patient was evaluated again, he continues to complain of severe pain in the backs of both legs, right worse than the left. He remains neurovascularly intact and has not had any other changes, but states every time that he moves the legs they spasm. The patient does now admit that he remembers slipping on ice and falling in his driveway about 4 days ago, he states he landed on right on his butt, but has not really had any issues since that time and continues to deny any back pain. Additional orders were placed for CT of the lumbar spine without contrast, and IV morphine for pain. Patient reassessed multiple times throughout ED stay, he continues to have significant pain in the backs of his legs with any attempts to move. An ambulatory trial was completely unsuccessful as the patient was barely able to stand out of the stretcher. He does complain of a tingling sensation in his legs, but sensation is still apparently intact to light touch throughout both extremities. His pulses are still intact and he has capillary refill. CT of the lumbar spine did show broad-based disc herniation at L3-L4, L4-L5, and disc space narrowing at L5-S1, which appeared to be consistent with previous imaging. No fractures. I spoke on the phone with Dr. Gerard, [facility] Hospitalist, regarding the patient's intractable pain and ambulatory dysfunction. She did agree to evaluate the patient for admission. I suspect that the patient's symptoms most likely are related to lumbar radi culopathy, but history and exam is inconsistent. A COVID test was also ordered for the admission, this did come back positive, although the patient has not had any reported symptoms. Given his otherwise unremarkable workup, I question whether this could also be contributing to his leg cramps. The patient was updated on all results and plan for admission, he was agreeable to this plan. The patient was stable at the time of admission. The chart was completed utilizing [employer] Speech voice recognition software. Grammatical errors, random word insertions, pronoun errors, and incomplete sentences are an occasional consequence of this system due to software limitations, ambient noise, and hardware issues. Any formal questions or concerns about the content, text, or information contained within the body of this dictation should be directly addressed to the nurse practitioner for clarification. Past Med/Surg History Medical History Diverticulitis Restless leg syndrome Surgical History History of ankle surgery History of bowel resection History of cervical spinal arthrodesis History of lumbosacral spine surgery Family History (Updated 10/15/21 @ 01:33 by Criss Gerard DO) Other No significant family history Social History Smoking Status: Never smoker Hx Alcohol Use: No Hx Substance Use: No Preferred Language: Mozambican Communication Ability: Effective Configurator Required: No Beliefs That Will Affect Care: None marital status: Current Living Situation: Spouse and Family current occupational status: unemployed Feels Safe at Home: Yes Safety Concerns: Feels Safe At This Time and Afraid for Self Assistive Devices: None Allergies Allergies Allergy/AdvReac Type Severity Reaction Status Date / Time Penicillins Allergy Unknown Unknown Verified 10/14/21 21:07 fentanyl AdvReac Intermediate Vomiting Verified 10/14/21 21:07 Home Meds Home Medications Medication Instructions Recorded Confirmed ibuprofen 200 mg tablet 800 mg PO Q6H PRN 04/02/21 10/14/21 ropinirole 3 mg tablet 3 mg PO HS 10/14/21 10/14/21 cyclobenzaprine 10 mg tablet 10 mg PO BID PRN 10/15/21 10/15/21 Results & Data (ED) Vital Signs Vital Signs - 24 hr 10/14/21 17:40 10/14/21 18:53 10/14/21 20:06 Temperature 36.3 C L Temperature Source Temporal Artery Scan Pulse Rate 68 Pulse Rate [Left Finger] 60 62 Pulse Rhythm [Left Finger] Regular Pulse Strength [Left Finger] Normal Respiratory Rate 16 20 20 Respiratory Effort / Characteristics Non-Labored Spontaneous Non-Labored Respiratory Depth Normal Normal Respiratory Pattern Regular Blood Pressure 155/66 H Blood Pressure [Left Arm] 143/85 H 130/95 Blood Pressure Mean 95 Blood Pressure Mean [Left Arm] 104 106 Blood Pressure Position [Left Arm] Sitting Pulse Oximetry 96 99 98 Oxygen Delivery Method Room Air Room Air Sepsis Recent Fever Within 48 Hours No Sepsis New/Unexplained Change in Mental Status No Sepsis Action Taken by Nursing No Action Required 10/14/21 21:13 10/14/21 21:55 10/14/21 22:40 Temperature Temperature Source Pulse Rate Pulse Rate [Left Finger] 63 52 L 78 Pulse Rhythm [Left Finger] Regular Regular Pulse Strength [Left Finger] Normal Respiratory Rate 16 16 20 Respiratory Effort / Characteristics Non-Labored Non-Labored Non-Labored Respiratory Depth Normal Normal Normal Respiratory Pattern Blood Pressure Blood Pressure [Left Arm] 166/87 H 137/67 130/79 Blood Pressure Mean Blood Pressure Mean [Left Arm] 113 90 96 Blood Pressure Position [Left Arm] Lying Lying Pulse Oximetry 96 97 96 Oxygen Delivery Method Room Air Room Air Room Air Sepsis Recent Fever Within 48 Hours Sepsis New/Unexplained Change in Mental Status Sepsis Action Taken by Nursing 10/15/21 01:18 10/15/21 02:30 10/15/21 09:12 Temperature 36.6 C Temperature Source Oral Pulse Rate 90 Pulse Rate [Left Finger] 57 L Pulse Rhythm [Left Finger] Pulse Strength [Left Finger] Respiratory Rate 16 18 Respiratory Effort / Characteristics Respiratory Depth Respiratory Pattern Blood Pressure 148/72 H Blood Pressure [Left Arm] 130/78 Blood Pressure Mean Blood Pressure Mean [Left Arm] 95 Blood Pressure Position [Left Arm] Semi-fowlers Pulse Oximetry 96 98 Oxygen Delivery Method Room Air Room Air Room Air Sepsis Recent Fever Within 48 Hours Sepsis New/Unexplained Change in Mental Status Sepsis Action Taken by Nursing Laboratory Data Result diagrams: 10/15/21 05:47 10/15/21 05:47 Lab Results 10/14/21 10/14/21 10/14/21 Range/Units 18:45 18:45 23:08 WBC 6.01 (4.8-10.8) K/uL RBC 4.91 (4.7-6.1) M/uL Hgb 14.7 (14.0-18.0) g/dL Hct 42.7 (42-52) % MCV 87.0 (80-100) fL MCH 29.9 (25-34) pg MCHC 34.4 (32-36) g/dL RDW Std Deviation 43.9 (36.4-46.3) fL RDW Coeff of Alexander 13.8 (11.5-14.5) % Plt Count 278 (130-400) K/uL MPV 9.5 (7.4-10.4) fL Immature Gran % (Auto) 0.3 % Neut % (Auto) 68.3 % Lymph % (Auto) 20.5 % Bay % (Auto) 5.5 % Eos % (Auto) 5.2 % Baso % (Auto) 0.2 % Neut # (Auto) 4.11 (1.4-6.5) K/uL Lymph # (Auto) 1.23 (1.2-3.4) K/uL Bay # (Auto) 0.33 (0.11-0.59) K/uL Eos # (Auto) 0.31 (0-0.5) K/uL Baso # (Auto) 0.01 (0-0.2) K/uL Immature Gran # (Auto) 0.02 (0.00-0.02) K/uL ESR (0-15) mm/hr Sodium 137 (136-145) mmol/L Potassium 4.2 (3.5-5.1) mmol/L Chloride 105 (98-107) mmol/L Carbon Dioxide 24 (21-32) mmol/L Anion Gap 8 (3-11) BUN 14 (6-23) mg/dl Creatinine 1.09 (0.6-1.4) mg/dl Est Cr Clr Drug Dosing Not Reportable Est GFR ( Amer) 92.5 ml/min Est GFR (Non-Af Amer) 79.8 ml/min BUN/Creatinine Ratio 12.8 (10-20) Glucose 105 H (70-99) mg/dl Calcium 8.9 (8.5-10.1) mg/dl Magnesium 2.0 (1.7-2.4) mg/dl Total Bilirubin 0.5 (0.2-1.0) mg/dl AST 18 (13-39) U/L ALT 19 (7-52) U/L Alkaline Phosphatase 42 (34-104) U/L Total Creatine Kinase 226 H (30-223) U/L C-Reactive Protein (0-5.00) mg/dl Total Protein 6.6 (6.0-8.3) gm/dl Albumin 4.2 (3.4-5.0) gm/dl Globulin 2.4 L (2.5-4.0) gm/dl Albumin/Globulin Ratio 1.8 (0.9-2) Vitamin B12 (211-911) pg/ml Folate (>5.38) ng/ml TSH (0.300-4.500) uIu/ml Urine Color Urine Appearance (Clear) Urine pH (4.5-7.5) Ur Specific [place] (1.000-1.030) Urine Protein (Negative) Urine Glucose (UA) (Negative) Urine Ketones (Negative) Urine Blood (Negative) Urine Nitrite (Negative) Urine Bilirubin (Negative) Urine Urobilinogen (Negative) Ur Leukocyte Esterase (Negative) SARS-CoV-2, RNA, NAAT POSITIVE A* (NEGATIVE) 10/15/21 10/15/21 10/15/21 Range/Units 05:47 05:47 05:47 WBC 4.93 (4.8-10.8) K/uL RBC 4.68 L (4.7-6.1) M/uL Hgb 13.6 L (14.0-18.0) g/dL Hct 41.2 L (42-52) % MCV 88.0 (80-100) fL MCH 29.1 (25-34) pg MCHC 33.0 (32-36) g/dL RDW Std Deviation 44.6 (36.4-46.3) fL RDW Coeff of Alexander 14.0 (11.5-14.5) % Plt Count 253 (130-400) K/uL MPV 9.6 (7.4-10.4) fL Immature Gran % (Auto) 0.4 % Neut % (Auto) 57.6 % Lymph % (Auto) 28.2 % Bay % (Auto) 6.5 % Eos % (Auto) 7.1 % Baso % (Auto) 0.2 % Neut # (Auto) 2.84 (1.4-6.5) K/uL Lymph # (Auto) 1.39 (1.2-3.4) K/uL Bay # (Auto) 0.32 (0.11-0.59) K/uL Eos # (Auto) 0.35 (0-0.5) K/uL Baso # (Auto) 0.01 (0-0.2) K/uL Immature Gran # (Auto) 0.02 (0.00-0.02) K/uL ESR (0-15) mm/hr Sodium 137 (136-145) mmol/L Potassium 4.0 (3.5-5.1) mmol/L Chloride 105 (98-107) mmol/L Carbon Dioxide 26 (21-32) mmol/L Anion Gap 6 (3-11) BUN 13 (6-23) mg/dl Creatinine 1.05 (0.6-1.4) mg/dl Est Cr Clr Drug Dosing 148.8 Est GFR ( Amer) 96.8 ml/min Est GFR (Non-Af Amer) 83.5 ml/min BUN/Creatinine Ratio 12.4 (10-20) Glucose 120 H (70-99) mg/dl Calcium 8.2 L (8.5-10.1) mg/dl Magnesium 2.0 (1.7-2.4) mg/dl Total Bilirubin 0.7 (0.2-1.0) mg/dl AST 17 (13-39) U/L ALT 17 (7-52) U/L Alkaline Phosphatase 39 (34-104) U/L Total Creatine Kinase (30-223) U/L C-Reactive Protein (0-5.00) mg/dl Total Protein 5.9 L (6.0-8.3) gm/dl Albumin 3.7 (3.4-5.0) gm/dl Globulin 2.2 L (2.5-4.0) gm/dl Albumin/Globulin Ratio 1.7 (0.9-2) Vitamin B12 227 (211-911) pg/ml Folate > 22.30 (>5.38) ng/ml TSH (0.300-4.500) uIu/ml Urine Color Urine Appearance (Clear) Urine pH (4.5-7.5) Ur Specific [place] (1.000-1.030) Urine Protein (Negative) Urine Glucose (UA) (Negative) Urine Ketones (Negative) Urine Blood (Negative) Urine Nitrite (Negative) Urine Bilirubin (Negative) Urine Urobilinogen (Negative) Ur Leukocyte Esterase (Negative) SARS-CoV-2, RNA, NAAT (NEGATIVE) 10/15/21 10/15/21 10/15/21 Range/Units 05:47 05:47 05:47 WBC (4.8-10.8) K/uL RBC (4.7-6.1) M/uL Hgb (14.0-18.0) g/dL Hct (42-52) % MCV (80-100) fL MCH (25-34) pg MCHC (32-36) g/dL RDW Std Deviation (36.4-46.3) fL RDW Coeff of Alexander (11.5-14.5) % Plt Count (130-400) K/uL MPV (7.4-10.4) fL Immature Gran % (Auto) % Neut % (Auto) % Lymph % (Auto) % Bay % (Auto) % Eos % (Auto) % Baso % (Auto) % Neut # (Auto) (1.4-6.5) K/uL Lymph # (Auto) (1.2-3.4) K/uL Bay # (Auto) (0.11-0.59) K/uL Eos # (Auto) (0-0.5) K/uL Baso # (Auto) (0-0.2) K/uL Immature Gran # (Auto) (0.00-0.02) K/uL ESR < 1 (0-15) mm/hr Sodium (136-145) mmol/L Potassium (3.5-5.1) mmol/L Chloride (98-107) mmol/L Carbon Dioxide (21-32) mmol/L Anion Gap (3-11) BUN (6-23) mg/dl Creatinine (0.6-1.4) mg/dl Est Cr Clr Drug Dosing Est GFR ( Amer) ml/min Est GFR (Non-Af Amer) ml/min BUN/Creatinine Ratio (10-20) Glucose (70-99) mg/dl Calcium (8.5-10.1) mg/dl Magnesium (1.7-2.4) mg/dl Total Bilirubin (0.2-1.0) mg/dl AST (13-39) U/L ALT (7-52) U/L Alkaline Phosphatase (34-104) U/L Total Creatine Kinase (30-223) U/L C-Reactive Protein < 0.50 (0-5.00) mg/dl Total Protein (6.0-8.3) gm/dl Albumin (3.4-5.0) gm/dl Globulin (2.5-4.0) gm/dl Albumin/Globulin Ratio (0.9-2) Vitamin B12 (211-911) pg/ml Folate (>5.38) ng/ml TSH 1.917 (0.300-4.500) uIu/ml Urine Color Urine Appearance (Clear) Urine pH (4.5-7.5) Ur Specific [place] (1.000-1.030) Urine Protein (Negative) Urine Glucose (UA) (Negative) Urine Ketones (Negative) Urine Blood (Negative) Urine Nitrite (Negative) Urine Bilirubin (Negative) Urine Urobilinogen (Negative) Ur Leukocyte Esterase (Negative) SARS-CoV-2, RNA, NAAT (NEGATIVE) 10/15/21 Range/Units 09:51 WBC (4.8-10.8) K/uL RBC (4.7-6.1) M/uL Hgb (14.0-18.0) g/dL Hct (42-52) % MCV (80-100) fL MCH (25-34) pg MCHC (32-36) g/dL RDW Std Deviation (36.4-46.3) fL RDW Coeff of Alexander (11.5-14.5) % Plt Count (130-400) K/uL MPV (7.4-10.4) fL Immature Gran % (Auto) % Neut % (Auto) % Lymph % (Auto) % Bay % (Auto) % Eos % (Auto) % Baso % (Auto) % Neut # (Auto) (1.4-6.5) K/uL Lymph # (Auto) (1.2-3.4) K/uL Bay # (Auto) (0.11-0.59) K/uL Eos # (Auto) (0-0.5) K/uL Baso # (Auto) (0-0.2) K/uL Immature Gran # (Auto) (0.00-0.02) K/uL ESR (0-15) mm/hr Sodium (136-145) mmol/L Potassium (3.5-5.1) mmol/L Chloride (98-107) mmol/L Carbon Dioxide (21-32) mmol/L Anion Gap (3-11) BUN (6-23) mg/dl Creatinine (0.6-1.4) mg/dl Est Cr Clr Drug Dosing Est GFR ( Amer) ml/min Est GFR (Non-Af Amer) ml/min BUN/Creatinine Ratio (10-20) Glucose (70-99) mg/dl Calcium (8.5-10.1) mg/dl Magnesium (1.7-2.4) mg/dl Total Bilirubin (0.2-1.0) mg/dl AST (13-39) U/L ALT (7-52) U/L Alkaline Phosphatase (34-104) U/L Total Creatine Kinase (30-223) U/L C-Reactive Protein (0-5.00) mg/dl Total Protein (6.0-8.3) gm/dl Albumin (3.4-5.0) gm/dl Globulin (2.5-4.0) gm/dl Albumin/Globulin Ratio (0.9-2) Vitamin B12 (211-911) pg/ml Folate (>5.38) ng/ml TSH (0.300-4.500) uIu/ml Urine Color Yellow Urine Appearance Clear (Clear) Urine pH 7.0 (4.5-7.5) Ur Specific [place] 1.022 (1.000-1.030) Urine Protein Negative (Negative) Urine Glucose (UA) Negative (Negative) Urine Ketones Negative (Negative) Urine Blood Negative (Negative) Urine Nitrite Negative (Negative) Urine Bilirubin Negative (Negative) Urine Urobilinogen Negative (Negative) Ur Leukocyte Esterase Negative (Negative) SARS-CoV-2, RNA, NAAT (NEGATIVE) Administered Medications Cyanocobalamin (Cyanocobalamin 1000 Mcg/Ml Vial) 1,000 mcg IM QAM [facility] Stop: 11/14/21 08:59 Last Admin: 10/15/21 09:50 Dose: 1,000 mcg Documented by: [id number] Discontinued Medications Acetaminophen (Acetaminophen 325 Mg Tab) 650 mg PO NOW STA Stop: 10/15/21 00:58 Last Admin: 10/15/21 02:24 Dose: 650 mg Documented by: [id number] Cyclobenzaprine HCl (Cyclobenzaprine Hcl 10 Mg Tab) 10 mg PO NOW STA Stop: 10/14/21 18:20 Last Admin: 10/14/21 18:50 Dose: 10 mg Documented by: [id number] Diazepam (Diazepam 5 Mg/Ml Inj 10ml Vial) 10 mg IM NOW STA Stop: 10/14/21 20:05 Last Admin: 10/14/21 20:20 Dose: 10 mg Documented by: [id number] Enoxaparin Sodium (Enoxaparin Inj 40 Mg/0.4 Ml Syr) 40 mg SQ NOW STA Stop: 10/15/21 01:02 Last Admin: 10/15/21 02:25 Dose: 40 mg Documented by: [id number] Sodium Chloride (Nss 1000ml) 1,000 mls @ 999 mls/hr IV .Q1H1M ONE Stop: 10/14/21 19:19 Last Infusion: 10/14/21 19:29 Dose: 0 mls/hr Documented by: [id number] Admin: 10/14/21 18:50 Dose: 999 mls/hr Documented by: [id number] Ketorolac Tromethamine (Ketorolac Tromethamine 15 Mg/Ml Vial) 15 mg IV NOW STA Stop: 10/14/21 18:20 Last Admin: 10/14/21 18:50 Dose: 15 mg Documented by: [id number] Morphine Sulfate (Morphine Sulfate 4 Mg/Ml 1 Ml Carp\Vial) 4 mg IV NOW STA Stop: 10/14/21 21:07 Last Admin: 10/14/21 21:14 Dose: 4 mg Documented by: [id number] Ropinirole HCl (Ropinirole Hcl 1 Mg Tablet) 3 mg PO ONE STA Stop: 10/15/21 00:58 Last Admin: 10/15/21 02:25 Dose: 3 mg Documented by: [id number] Imaging Data Radiologist's Impression: Venous Doppler Study 10/15/21 02:23 US venous doppler LE CLINICAL HISTORY: BLE edema. RLE pain. COMPARISON: None available at the time of this dictation. TECHNIQUE: Bilateral lower extremity real-time compression venous ultrasound with Color Doppler imaging. Utilizing real-time ultrasonic imaging multiple real time high-resolution ultrasonic images with compression and noncompression maneuvers of the deep venous system in addition to color doppler imaging were performed from the common femoral vein through the proximal calf veins. FINDINGS: Currently there is normal compressibility of the deep venous system from the common femoral vein through the proximal calf veins. No current evidence of acute thrombosis is identified. Impression: No evidence of deep venous thrombus. ACT 112: Negative or not required by law. Electronically signed by: Robert Jin M.D. 10/15/2021 8:[address] 10/15/21 10:52 CT head/brain wo con CLINICAL HISTORY: fall, acute b/l leg pain, hit head @ [facility] COMPARISON STUDY: 08/25/2020 CT DOSE: 537.48 mGy.cm TECHNIQUE: Standard CT of the Brain was performed without IV contrast. A dose lowering technique was utilized adhering to the principles of ALARA. FINDINGS: Extraaxial space: There is no evidence for subdural hematoma. There are no extra-axial fluid collections. Ventricles and cisterns: The ventricles are normal in size and configuration. T here is no evidence for midline shift or mass effect. Parenchyma: There is no subarachnoid or intraparenchymal hemorrhage. There is no evidence for an acute infarct or cerebral edema. There is homogeneous attenuation of the brain parenchyma. There are no gross mass lesions. Bilateral basal ganglia calcifications are again seen. Osseous structures: There is no evidence for an acute fracture. The visualized paranasal sinuses are clear. The mastoid air cells are clear bilaterally. Soft tissues: There is no evidence for focal soft tissue swelling. IMPRESSION: No acute intracerebral pathology. ACT 112: Negative or not required by law. Electronically signed by: Robert Jin M.D. 10/15/2021 11:31 AM Discharge Plan Visit Data Chief Complaint: Leg Injury/Pain Stated Complaint: LEG PAIN ED Provider: Felipe Bell ED Midlevel Provider: Lachelle Gale Discharge Problem: Bilateral lower extremity pain, Ambulatory dysfunction Patient Disposition: Admitted As Inpatient Discharge Instructions Interventions: ED Discharge Assessment Last Done: 10/15/21 01:18
--- NOTE | 2021-10-14 18:48 | Emergency Department Note ---
ED Visit Note Physician Evaluation Note: Patient was seen in conjunction with the physician public services assistant. Please see the physician public services assistant note for full details of the visit. I have personally evaluated and examined this patient. I performed a substantive portion of the patient visit including medical decision making and interpretation of diagnostic studies. On my examination the patient is in no acute distress. He presents today with a chief complaint of bilateral lower extremity "cramping" that has been ongoing for about the past 5 to 6 hours. He denies any trauma. He is not on any statin medications. He does admit to a history of restless leg syndrome. Patient overall appears well on arrival here to the ED, he does not have any asymmetrical swelling of the lower extremities. Lab work was obtained, IV fluids given. CK level is very slightly elevated, I suspect the patient may have some mild dehydration which is a source of his symptoms. He will be discharged with outpatient follow-up. I agree with assessment and plan of MARTINA Isaacs DO .
[2021-10-14 18:55] LABS: Basophils # (auto) 0.01 K/uL (0-0.2); Basophils % (auto) 0.2 %; Eosinophils # (auto) 0.31 K/uL (0-0.5); Eosinophils % (auto) 5.2 %; Hematocrit (blood only) 42.7 % (42-52); Hemoglobin 14.7 g/dL (14.0-18.0); Immature Granulocytes # (auto) 0.02 K/uL (0.00-0.02); Immature Granulocytes % (auto) 0.3 %; Lymphocytes # (auto) 1.23 K/uL (1.2-3.4); Lymphocytes % (auto) 20.5 %; Mean Corpuscular Hemoglobin 29.9 pg (25-34); Mean Corpuscular Hgb Conc 34.4 g/dL (32-36); Mean Platelet Volume 9.5 fL (7.4-10.4); Monocytes # (auto) 0.33 K/uL (0.11-0.59); Monocytes % (auto) 5.5 %; Neutrophils # (auto) 4.11 K/uL (1.4-6.5); Neutrophils % (auto) 68.3 %; Platelet Count 278 K/uL (130-400); RDW Coefficient of Variation 13.8 % (11.5-14.5); RDW Standard Deviation 43.9 fL (36.4-46.3); Red Blood Count 4.91 M/uL (4.7-6.1); White Blood Count 6.01 K/uL (4.8-10.8)
[2021-10-14 19:14] LABS: Alanine Aminotransferase 19 U/L (7-52); Albumin Globulin Ratio 1.8 (0.9-2); Albumin Level 4.2 gm/dl (3.4-5.0); Alkaline Phosphatase 42 U/L (34-104); Anion Gap 8 (3-11); Aspartate Aminotransferase 18 U/L (13-39); BUN Creatinine Ratio 12.8 (10-20); Bilirubin,Total 0.5 mg/dl (0.2-1.0); Blood Urea Nitrogen 14 mg/dl (6-23); Calcium 8.9 mg/dl (8.5-10.1); Carbon Dioxide 24 mmol/L (21-32); Chloride 105 mmol/L (98-107); Creatine Kinase 226 U/L (30-223); Est GFR (African American) 92.5 ml/min; Est GFR (Non-African American) 79.8 ml/min; Globulin 2.4 gm/dl (2.5-4.0); Glucose 105 mg/dl (70-99); Potassium 4.2 mmol/L (3.5-5.1); Sodium 137 mmol/L (136-145); Total Protein 6.6 gm/dl (6.0-8.3)
[2021-10-14] MEDS ORDERED: MoRPHine SULFATE 4 MG/ML 1 ML CARP\\VIAL IV STA (21:06)
--- NOTE | 2021-10-14 22:05 | CT Scan Report ---
CT lumbar spine wo con CLINICAL HISTORY: bilateral leg pain and LBP, recent fall COMPARISON STUDY: 08/07/2021 CT DOSE: 882.65 mGy.cm TECHNIQUE: Standard CT of the Lumbar Spine was performed without IV contrast. A dose lowering techni que was utilized adhering to the principles of ALARA. FINDINGS: Bones: Bones are osteopenic. There is no evidence for an acute fracture or malalignment. The heights of the vertebral bodies are maintained. The vertebral bodies are in anatomic alignment. Disc spaces: Compared to the previous examination, there is again moderate to marked disc space narro wing L5-S1 with large bridging osteophyte formation anteriorly. At L3-4, there is a broad-based left lateral disc protrusion/herniation present. At L4-5, there is a broad-based disc protrusion/herniation present. Facet joints: There is mild hypertrophic facet joint disease at the lower 3 disc space levels. The sa croiliac joints are intact bilaterally. Soft tissues: The prevertebral soft tissues are within normal limits. IMPRESSION: 1. No acute abnormality. 2. Broad-based left lateral disc protrusion/herniation at L3-4 3. Broad-based disc protrusion/herniation at L4-5. 4. Moderate to marked disc space narrowing at L5-S1 is again seen. 5. Hypertrophic facet joint disease is also present at the lower 3 disc space levels. ACT 112: Negative or not required by law. Electronically signed by: Robert Jin M.D. 10/14/2021 10:04 PM
--- NOTE | 2021-10-14 23:35 | History & Physical Report ---
Date of Service October 14, 2021 Assessment & Plan (1) Bilateral lower extremity pain: Plan: 46 y/o M w/ PMHx of RLS and spinal pathology who presents w/ a day of acute bilateral lower extremity cramping and paresthesias. Most likely cause is disc-related pathology considering recent fall, positive SLR on right, hx of lumbar surgery, and current findings on lumbar CT. - Broad-based left lateral disc protrusion/herniation at L3-4. - Broad-based disc protrusion/herniation at L4-5. - Moderate to marked disc space narrowing at L5-S1 is again seen. Positive covid, considered DVT. RLE was notably tender to light touch. Check venous duplex of bilateral lower extremity in AM. Lower suspicion for myopathy (reviewed meds list. will check TSH) or B12/folate deficiency (hx of bowel resection; large bowel? less likely affecting B12/folate) Will provide ice, voltaren gel, scheduled tylenol, and prn toradol CK mildly elevated at 226 Defer ortho consult at this time; reconsider after workup/management above (2) History of lumbosacral spine surgery: Plan: - see above (3) Restless leg syndrome: Plan: - continue home ropinirole (4) COVID-19: Plan: - no respiratory symptoms and is saturating 96% on room air - covid isolations per protocol Plan: FEN/GI: Regular diet. No IV fluids. ppx: SQ Lovenox. SCDs code: full dispo: med/surg History of Present Illness Chief Complaint: lower extremity pain Primary Care Provider: Fam Perry, 46 y/o M w/ RLS and lumbar spinal surgery hx who presents w/ a day of acute bilateral lower extremity cramping and paresthesias. This started as severe left dorsal thigh cramping that spread to his calf and foot. 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 Later in the afternoon and more recently, his main complaint is in his dorsal right lower extremity, which starts slightly higher at the gluteal region. The cramping pain is constant and present at rest but exacerbated with movement and weight bearing. Endorses slight weakness of his lower extremity. Pain is worse distally. There is mild paresthesias of his foot. Denies saddle anesthesia symptoms. No back pain currently. Does not feel like his RLS. Feels like jian horse that does not subside. Denies hx of similar symptoms in past. History notable for recent fall on ice 4 days ago, landed on tailbone; no pain or weakness after the fall. ED course: ED course: toradol 15 mg IV, flexeril 10 (home med), diazepam IM, morphine 4mg IV, NSS 1L. Patient tested covid positive. He is not covid i mmunized. Allergies Allergy/AdvReac Type Severity Reaction Status Date / Time Penicillins Allergy Unknown Unknown Verified 10/14/21 21:07 fentanyl AdvReac Intermediate Vomiting Verified 10/14/21 21:07 Home Medications Medication Instructions Recorded Confirmed Type ibuprofen 200 mg tablet 800 mg PO Q6H PRN 04/02/21 10/14/21 History ropinirole 3 mg tablet 3 mg PO HS 10/14/21 10/14/21 History cyclobenzaprine 10 mg tablet 10 mg PO BID PRN 10/15/21 10/15/21 History Past Med/Surg History Medical History Diverticulitis Restless leg syndrome Surgical History History of ankle surgery History of bowel resection History of cervical spinal arthrodesis History of lumbosacral spine surgery Family History (Updated 10/15/21 @ 01:33 by Criss Gerard DO) Other No significant family history Social History Smoking Status: Never smoker Preferred Language: Icelandic marital status: current occupational status: unemployed Feels Safe at Home: Yes Review of Systems Review of Systems: All systems reviewed & are unremarkable except as noted in HPI & below (Specifically, no fever, chills, chest pain, shortness of breath, headache, abdominal, or urinary symptoms.) Physical Exam Physical Exam: General: Grossly A&O. NAD. Cooperative. HEENT: Atraumatic, normocephalic. EOMI Pulm: CTAB. -wheezes, -rales, -rhonchi. No respiratory distress. Cardiac: RRR, -mrg. DP pulses 2+l. 1+ BLE edema. Abdominal: Nontender, nondistended, soft. Msk: Posterior R thigh and calf tender to touch. No asymmetry of calf. Back: No midline spinal TTP. Integ: Warm, dry, intact. Mild healed superficial abrasions of R sahni, no open wounds. Neuro: 5+/5 strength of BLE. Slightly decreased sensation of RLE. Pos SLR on right. Per attending exam, normal patellar reflexes and downgoing Babinski's bilaterally. Results & Data Results & Data ([facility]) Vital Signs (Past 12 Hours) Vital Signs Temp Pulse Pulse Resp BP BP Pulse Ox 10/14/21 22:40 78 20 130/79 96 10/14/21 21:55 52 L 16 137/67 97 10/14/21 21:13 63 16 166/87 H 96 10/14/21 20:06 62 20 130/95 98 10/14/21 18:53 60 20 143/85 H 99 10/14/21 17:40 36.3 C L 68 16 155/66 H 96 Laboratory Results 10/14/21 18:45 10/14/21 18:45 Cardiac Enzymes 10/14/21 Range/Units 18:45 AST 18 (13-39) U/L CBC 10/14/21 Range/Units 18:45 WBC 6.01 (4.8-10.8) K/uL RBC 4.91 (4.7-6.1) M/uL Hgb 14.7 (14.0-18.0) g/dL Hct 42.7 (42-52) % Plt Count 278 (130-400) K/uL Neut # (Auto) 4.11 (1.4-6.5) K/uL Lymph # (Auto) 1.23 (1.2-3.4) K/uL [place] # (Auto) 0.33 (0.11-0.59) K/uL Eos # (Auto) 0.31 (0-0.5) K/uL Baso # (Auto) 0.01 (0-0.2) K/uL Comprehensive Metabolic Panel 10/14/21 Range/Units 18:45 Sodium 137 (136-145) mmol/L Potassium 4.2 (3.5-5.1) mmol/L Chloride 105 (98-107) mmol/L Carbon Dioxide 24 (21-32) mmol/L BUN 14 (6-23) mg/dl Creatinine 1.09 (0.6-1.4) mg/dl Glucose 105 H (70-99) mg/dl Calcium 8.9 (8.5-10.1) mg/dl AST 18 (13-39) U/L ALT 19 (7-52) U/L Alkaline Phosphatase 42 (34-104) U/L Total Protein 6.6 (6.0-8.3) gm/dl Albumin 4.2 (3.4-5.0) gm/dl Intake and Output 10/14/21 10/14/21 10/15/21 14:59 22:59 06:59 Intake Total 1000 / 1000 Balance 1000 / 1000 Intake: IV 1000 / 1000 Sodium Chloride 0.9% 1000ML 1, 1000 / 1000 000 ml @ 999 mls/hr IV .Q1H1M ONE Rx#:[id number] Other: Weight Measurement Method Chair Scale Diagnostic Findings Lumbar Spine CT 10/14/21 21:06 CT lumbar spine wo con CLINICAL HISTORY: bilateral leg pain and LBP, recent fall COMPARISON STUDY: 08/07/2021 CT DOSE: 882.65 mGy.cm TECHNIQUE: Standard CT of the Lumbar Spine was performed without IV contrast. A dose lowering technique was utilized adhering to the principles of ALARA. FINDINGS: Bones: Bones are osteopenic. There is no evidence for an acute fracture or malalignment. The heights of the vertebral bodies are maintained. The vertebral bodies are in anatomic alignment. Disc spaces: Compared to the previous examination, there is again moderate to marked disc space narrowing L5-S1 with large bridging osteophyte formation anteriorly. At L3-4, there is a broad-based left lateral disc protrusion/herniation present. At L4-5, there is a broad-based disc protrusion/herniation present. Facet joints: There is mild hypertrophic facet joint disease at the lower 3 disc space levels. The sacroiliac joints are intact bilaterally. Soft tissues: The prevertebral soft tissues are within normal limits. IMPRESSION: 1. No acute abnormality. 2. Broad-based left lateral disc protrusion/herniation at L3-4 3. Broad-based disc protrusion/herniation at L4-5. 4. Moderate to marked disc space narrowing at L5-S1 is again seen. 5. Hypertrophic facet joint disease is also present at the lower 3 disc space levels. ACT 112: Negative or not required by law. Electronically signed by: Robert Jin M.D. 10/14/2021 10:04 PM Code Status & VTE Plan Code Status full VTE Prophylaxis Plan VTE Prophylaxis will be ordered: Yes Supervising Physician Co-Signing Physician Notes Patient seen and examined, chart reviewed, case discussed with Dr. Bowden and I agree with the assessment and plan as above. Patient presenting with bilateral LE cramping, paresthesias in RLE, pain. He fell on his buttock earlier in the week but did not develop symptoms then. He denies back pain. Has history of prior lumbar surgery Incidentally Covid-19 POSITIVE. Patient is unvaccinated. He denies fever, chills, cough, SOB, abdominal pain, nausea, vomiting, diarrhea, loss of taste or smell. He does recall that appx 2 weeks ago he felt as though he was "hit by a truck" with fatigue, body aches. This was possibly his Covid-19 at that time? Exam is largely unremarkable. His posterior calf and thigh are tender to touch. Sensation and strength intact Reflexes intact. Downgoing Babinski Labs and images reviewed. Covid+ Mildly elevated CK CT L spine with broad based left lateral disc protrusion/herniation at L3-L4 and L4-L5 with disc space narrowing at L5-S1. Assessment/Plan suspect acute lumbosacral radiculopathy vs DVT Conservative management with ice, toradol, tylenol, Flexeril. If no improvement or worsening pain or neuro symptoms will consult Ortho -No indication for Covid-19 treatment at this time. Adequate oxygenation on room air. -Remainder as above Resident Activity Tracking Resident Involvement: Resident Care Provided Care Provided: Adult Hospital Medicine
[2021-10-15] MEDS ORDERED: rOPINIRole HCL 1 MG TABLET PO STA (00:57)
[2021-10-15] MEDS ORDERED: ACETAMINOPHEN 325 MG TAB PO STA (00:57)
[2021-10-15] MEDS ORDERED: ENOXAPARIN INJ 40 MG/0.4 ML SYR SQ STA (01:01)
--- NOTE | 2021-10-15 01:32 | Billing Data ---
Date of Service October 14, 2021 Coding Level of Care Code INT OBSERVATION CARE 50M LVL 2
[2021-10-15] MEDS ORDERED: DICLOFENAC SOD 1% GEL 100 GM TUBE EXT PRN (05:00)
[2021-10-15 06:21] LABS: Basophils # (auto) 0.01 K/uL (0-0.2); Basophils % (auto) 0.2 %; Eosinophils # (auto) 0.35 K/uL (0-0.5); Eosinophils % (auto) 7.1 %; Hematocrit (blood only) 41.2 % (42-52); Hemoglobin 13.6 g/dL (14.0-18.0); Immature Granulocytes # (auto) 0.02 K/uL (0.00-0.02); Immature Granulocytes % (auto) 0.4 %; Lymphocytes # (auto) 1.39 K/uL (1.2-3.4); Lymphocytes % (auto) 28.2 %; Mean Corpuscular Hemoglobin 29.1 pg (25-34); Mean Platelet Volume 9.6 fL (7.4-10.4); Monocytes # (auto) 0.32 K/uL (0.11-0.59); Monocytes % (auto) 6.5 %; Neutrophils # (auto) 2.84 K/uL (1.4-6.5); Neutrophils % (auto) 57.6 %; Platelet Count 253 K/uL (130-400); RDW Standard Deviation 44.6 fL (36.4-46.3); Red Blood Count 4.68 M/uL (4.7-6.1); White Blood Count 4.93 K/uL (4.8-10.8)
[2021-10-15 06:50] LABS: Albumin Globulin Ratio 1.7 (0.9-2); Albumin Level 3.7 gm/dl (3.4-5.0); BUN Creatinine Ratio 12.4 (10-20); Bilirubin,Total 0.7 mg/dl (0.2-1.0); Calcium 8.2 mg/dl (8.5-10.1); Creatinine Clr Calc Pharmacy 148.8 ml/min; Est GFR (African American) 96.8 ml/min; Est GFR (Non-African American) 83.5 ml/min; Globulin 2.2 gm/dl (2.5-4.0); Total Protein 5.9 gm/dl (6.0-8.3)
[2021-10-15] MEDS ORDERED: CYCLOBENZAPRINE HCL 10 MG TAB PO PRN (07:00)
[2021-10-15 07:14] LABS: Folate (Folic Acid) > 22.30 ng/ml (>5.38); Vitamin B12 227 pg/ml (211-911)
--- NOTE | 2021-10-15 07:23 | Hospitalist Progress Note ---
Date of Service October 15, 2021 Assessment & Plan (1) Bilateral lower extremity pain: Plan: 46 y/o M w/ PMHx of RLS and spinal pathology who presents w/ a day of acute bilateral lower extremity cramping and paresthesias. Got morphine, flexeril, toradol in ER Most likely cause is disc-related pathology considering recent fall, positive SLR on right, hx of lumbar surgery, and current findings on lumbar CT. - Broad-based left lateral disc protrusion/herniation at L3-4. - Broad-based disc protrusion/herniation at L4-5. - Moderate to marked disc space narrowing at L5-S1 is again seen. +COVID on admission -- not vaccinated or boosted. --> Per patient, had symptoms myalgia/chills around [place] time with fall/hit back of head. No headache or vision changes. No need for isolation at this time given symptoms almost [address] Head on admission -- > will obtain given COVID/fall to r/o other causes CK mild elevation 226 on admit. Got 1L NSS. TSH wnl Less cramping today but with significant discomfort/tingling primarily to RLE but also with LLE symptoms Venous Doppler negative for DVTs Continue ice/voltaren gel. Ordered 1gm tylenol prn. Flexeril also available prn --> Not requiring anything at this time but pain increased with movement B12 low normal/deficient and started on supplementation -- hx bowel perf/resectioned pt 6-7 yrs ago (upon review of chart elsie had several weeks lowe abdominal discomfort and suddenly worsened and CT showed diverticulitis with possible area of perforation back in 2013, surgery by Dr. De La Rosa) --> No abdominal pain/nausea/pain on examination Discussed with Dr Joya and he is consulted --> he will review films later/possibly see patient later today vs in AM Will check ESR/CRP and if elevated, consider prednisone to help with symptoms/inflammation Check UA for completeness Will consult PT/OT for evaluations (2) History of lumbosacral spine surgery: Plan: - see above Mahnaz on consult (3) Restless leg syndrome: Plan: - continue home ropinirole Check iron panel for completeness in AM given low ferritin can worsen/mask symptoms of RLS (4) COVID-19: Plan: - no respiratory symptoms and is saturating 98% on room air. lungs clear on examination Venous doppler negative for DVT - covid isolations per protocol --> will discuss with infection control but likely can d/c isolation precautions this afternoon as symptoms >3 weeks out Plan: LOvenox SQ for DVT prophylaxis, but increase to 50SQ given weight closer to 100 -- hold off giving until CT resulted CT head ordered Ortho consulted Will order PT/OT consults as well Admission and Anticipated Discharge Date Admission Date: October 14, 2021 Subjective patient eval this morning. doing alright as long as he doesn't move around long standing history of R sided back pain with radiculopathy to posterior thigh and sometimes radiation down through lower leg. had been massaging at home but during [place] time, of note, was having body aches/chills/myalgia and did note he had a fall and hit the back of his head at that time. no increased pain/discomfort after that fall. no headaches or blurred vision. had been doing work at home and had another episode where legs gave out due to increased pain/spasm and fell about 4-5 days ago but denied hitting his head. No loss of consciousness No etoh or alcohol use reported Does have history of perforated bowel and required resection about 6-7 years ago here. Discussed Venous Doppler negative for DVT. No cp/sob reported. Review of Systems Review of Systems: All systems reviewed & are unremarkable except as noted in HPI & below Physical Exam Physical Exam: General: WD/WN 46yo male, resting in bed, no acute distress w hen staying still but reported increased discomfort with any movements to lower extremities. Eyes anicteric, pupils equal and reactive, EOMI mmm, trachea midline without deviation Resp: CTAB, diminished in the bases, on room air CV: RRR, no m/r/g, 1+ b/l LE edema GI: +BS, soft, non-tender MSK: tender to palpation R thigh, +R SLR, slightly decreased sensation to light touch b/l LE, strength equal, maybe slightly decreased 4/5 to the left with dorsiflexion. increased discomfort with any ROM LE, downgoing babinski. No tenderness to palpation of spine but increased discomfort with sitting up forwa rd in bed Results & Data Results & Data ([facility]) Vital Signs (Past 12 Hours) Vital Signs Pulse Pulse Resp BP BP Pulse Ox 10/15/21 01:18 90 16 148/72 H 96 10/14/21 22:40 78 20 130/79 96 10/14/21 21:55 52 L 16 137/67 97 10/14/21 21:13 63 16 166/87 H 96 10/14/21 20:06 62 20 130/95 98 Laboratory Results 10/15/21 10/15/21 10/15/21 Range/Units 05:47 05:47 05:47 WBC (4.8-10.8) K/uL RBC (4.7-6.1) M/uL Hgb (14.0-18.0) g/dL Hct (42-52) % MCV (80-100) fL MCH (25-34) pg MCHC (32-36) g/dL RDW Std Deviation (36.4-46.3) fL RDW Coeff of Alexander (11.5-14.5) % Plt Count (130-400) K/uL MPV (7.4-10.4) fL Immature Gran % (Auto) % Neut % (Auto) % Lymph % (Auto) % [place] % (Auto) % Eos % (Auto) % Baso % (Auto) % Neut # (Auto) (1.4-6.5) K/uL Lymph # (Auto) (1.2-3.4) K/uL [place] # (Auto) (0.11-0.59) K/uL Eos # (Auto) (0-0.5) K/uL Baso # (Auto) (0-0.2) K/uL Immature Gran # (Auto) (0.00-0.02) K/uL Sodium 137 (136-145) mmol/L Potassium 4.0 (3.5-5.1) mmol/L Chloride 105 (98-107) mmol/L Carbon Dioxide 26 (21-32) mmol/L Anion Gap 6 (3-11) BUN 13 (6-23) mg/dl Creatinine 1.05 (0.6-1.4) mg/dl Est Cr Clr Drug Dosing 148.8 Est GFR ( Amer) 96.8 ml/min Est GFR (Non-Af Amer) 83.5 ml/min BUN/Creatinine Ratio 12.4 (10-20) Glucose 120 H (70-99) mg/dl Calcium 8.2 L (8.5-10.1) mg/dl Magnesium 2.0 (1.7-2.4) mg/dl Total Bilirubin 0.7 (0.2-1.0) mg/dl AST 17 (13-39) U/L ALT 17 (7-52) U/L Alkaline Phosphatase 39 (34-104) U/L Total Creatine Kinase (30-223) U/L Total Protein 5.9 L (6.0-8.3) gm/dl Albumin 3.7 (3.4-5.0) gm/dl Globulin 2.2 L (2.5-4.0) gm/dl Albumin/Globulin Ratio 1.7 (0.9-2) Vitamin B12 227 (211-911) pg/ml Folate > 22.30 (>5.38) ng/ml TSH 1.917 (0.300-4.500) uIu/ml SARS-CoV-2, RNA, NAAT (NEGATIVE) 10/15/21 10/14/21 10/14/21 Range/Units 05:47 23:08 18:45 WBC 4.93 (4.8-10.8) K/uL RBC 4.68 L (4.7-6.1) M/uL Hgb 13.6 L (14.0-18.0) g/dL Hct 41.2 L (42-52) % MCV 88.0 (80-100) fL MCH 29.1 (25-34) pg MCHC 33.0 (32-36) g/dL RDW Std Deviation 44.6 (36.4-46.3) fL RDW Coeff of Alexander 14.0 (11.5-14.5) % Plt Count 253 (130-400) K/uL MPV 9.6 (7.4-10.4) fL Immature Gran % (Auto) 0.4 % Neut % (Auto) 57.6 % Lymph % (Auto) 28.2 % [place] % (Auto) 6.5 % Eos % (Auto) 7.1 % Baso % (Auto) 0.2 % Neut # (Auto) 2.84 (1.4-6.5) K/uL Lymph # (Auto) 1.39 (1.2-3.4) K/uL [place] # (Auto) 0.32 (0.11-0.59) K/uL Eos # (Auto) 0.35 (0-0.5) K/uL Baso # (Auto) 0.01 (0-0.2) K/uL Immature Gran # (Auto) 0.02 (0.00-0.02) K/uL Sodium 137 (136-145) mmol/L Potassium 4.2 (3.5-5.1) mmol/L Chloride 105 (98-107) mmol/L Carbon Dioxide 24 (21-32) mmol/L Anion Gap 8 (3-11) BUN 14 (6-23) mg/dl Creatinine 1.09 (0.6-1.4) mg/dl Est Cr Clr Drug Dosing Not Reportable Est GFR ( Amer) 92.5 ml/min Est GFR (Non-Af Amer) 79.8 ml/min BUN/Creatinine Ratio 12.8 (10-20) Glucose 105 H (70-99) mg/dl Calcium 8.9 (8.5-10.1) mg/dl Magnesium 2.0 (1.7-2.4) mg/dl Total Bilirubin 0.5 (0.2-1.0) mg/dl AST 18 (13-39) U/L ALT 19 (7-52) U/L Alkaline Phosphatase 42 (34-104) U/L Total Creatine Kinase 226 H (30-223) U/L Total Protein 6.6 (6.0-8.3) gm/dl Albumin 4.2 (3.4-5.0) gm/dl Globulin 2.4 L (2.5-4.0) gm/dl Albumin/Globulin Ratio 1.8 (0.9-2) Vitamin B12 (211-911) pg/ml Folate (>5.38) ng/ml TSH (0.300-4.500) uIu/ml SARS-CoV-2, RNA, NAAT POSITIVE A* (NEGATIVE) 10/14/21 Range/Units 18:45 WBC 6.01 (4.8-10.8) K/uL RBC 4.91 (4.7-6.1) M/uL Hgb 14.7 (14.0-18.0) g/dL Hct 42.7 (42-52) % MCV 87.0 (80-100) fL MCH 29.9 (25-34) pg MCHC 34.4 (32-36) g/dL RDW Std Deviation 43.9 (36.4-46.3) fL RDW Coeff of Alexander 13.8 (11.5-14.5) % Plt Count 278 (130-400) K/uL MPV 9.5 (7.4-10.4) fL Immature Gran % (Auto) 0.3 % Neut % (Auto) 68.3 % Lymph % (Auto) 20.5 % [place] % (Auto) 5.5 % Eos % (Auto) 5.2 % Baso % (Auto) 0.2 % Neut # (Auto) 4.11 (1.4-6.5) K/uL Lymph # (Auto) 1.23 (1.2-3.4) K/uL [place] # (Auto) 0.33 (0.11-0.59) K/uL Eos # (Auto) 0.31 (0-0.5) K/uL Baso # (Auto) 0.01 (0-0.2) K/uL Immature Gran # (Auto) 0.02 (0.00-0.02) K/uL Sodium (136-145) mmol/L Potassium (3.5-5.1) mmol/L Chloride (98-107) mmol/L Carbon Dioxide (21-32) mmol/L Anion Gap (3-11) BUN (6-23) mg/dl Creatinine (0.6-1.4) mg/dl Est Cr Clr Drug Dosing Est GFR ( Amer) ml/min Est GFR (Non-Af Amer) ml/min BUN/Creatinine Ratio (10-20) Glucose (70-99) mg/dl Calcium (8.5-10.1) mg/dl Magnesium (1.7-2.4) mg/dl Total Bilirubin (0.2-1.0) mg/dl AST (13-39) U/L ALT (7-52) U/L Alkaline Phosphatase (34-104) U/L Total Creatine Kinase (30-223) U/L Total Protein (6.0-8.3) gm/dl Albumin (3.4-5.0) gm/dl Globulin (2.5-4.0) gm/dl Albumin/Globulin Ratio (0.9-2) Vitamin B12 (211-911) pg/ml Folate (>5.38) ng/ml TSH (0.300-4.500) uIu/ml SARS-CoV-2, RNA, NAAT (NEGATIVE) Diagnostic Findings Lumbar Spine CT 10/14/21 21:06 CT lumbar spine wo con CLINICAL HISTORY: bilateral leg pain and LBP, recent fall COMPARISON STUDY: 08/07/2021 CT DOSE: 882.65 mGy.cm TECHNIQUE: Standard CT of the Lumbar Spine was performed without IV contrast. A dose lowering technique was utilized adhering to the principles of ALARA. FINDINGS: Bones: Bones are osteopenic. There is no evidence for an acute fracture or malalignment. The heights of the vertebral bodies are maintained. The vertebral bodies are in anatomic alignment. Disc spaces: Compared to the previous examination, there is again moderate to marked disc space narrowing L5-S1 with large bridging osteophyte formation anteriorly. At L3-4, there is a broad-based left lateral disc protrusion/herniation present. At L4-5, there is a broad-based disc protrusion/herniation present. Facet joints: There is mild hypertrophic facet joint disease at the lower 3 disc space levels. The sacroiliac joints are intact bilaterally. Soft tissues: The prevertebral soft tissues are within normal limits. IMPRESSION: 1. No acute abnormality. 2. Broad-based left lateral disc protrusion/herniation at L3-4 3. Broad-based disc protrusion/herniation at L4-5. 4. Moderate to marked disc space narrowing at L5-S1 is again seen. 5. Hypertrophic facet joint disease is also present at the lower 3 disc space levels. ACT 112: Negative or not required by law. Electronically signed by: Robert Jin M.D. 10/14/2021 10:04 PM PG Care Time/CCT Total # of Minutes Spent Total Time Spent with Patient: Total time spent is greater than 50% in coordination of care (as documented) at patient's floor/unit and/or counseling patient: Coding Level of Care Code 64243 Subseq Hosp Care Lvl 3 Diagnoses Bilateral lower extremity pain M79.604; M79.605 History of lumbosacral spine surgery Z98.890 Restless leg syndrome G25.81 COVID-19 U07.1
--- NOTE | 2021-10-15 08:47 | Ultrasound Report ---
US venous doppler LE BI CLINICAL HISTORY: BLE edema. RLE pain. COMPARISON: None available at the time of this dictation. TECHNIQUE: Bilateral lower extremity real-time compression venous ultrasound with Color Doppler imagi ng. Utilizing real-time ultrasonic imaging multiple real time high-resolution ultrasonic images with comp ression and noncompression maneuvers of the deep venous system in addition to color doppler imaging w ere performed from the common femoral vein through the proximal calf veins. FINDINGS: Currently there is normal compressibility of the deep venous system from the common femoral vein thro ugh the proximal calf veins. No current evidence of acute thrombosis is identified. Impression: No evidence of deep venous thrombus. ACT 112: Negative or not required by law. Electronically signed by: Robert Jin M.D. 10/15/2021 8:45 AM
[2021-10-15] MEDS ORDERED: CYANOCOBALAMIN 1,000 MCG in SYRINGE 0.97 ML IM SCH (09:00)
[2021-10-15] MEDS: CYANOCOBALAMIN 1000 MCG/ML VIAL IM SCH (09:50)
[2021-10-15 10:29] LABS: Appearance Urine Clear (Clear); Bilirubin Urine Negative (Negative); Blood Urine Negative (Negative); Color Urine Yellow; Glucose Urine UA Negative (Negative); Ketones Urine Negative (Negative); Leukocyte Esterase Urine Negative (Negative); Nitrite Urine Negative (Negative); Protein Urine Negative (Negative); Specific Gravity Urine 1.022 (1.000-1.030); Urobilinogen Urine Negative (Negative)
[2021-10-15] MEDS ORDERED: ACETAMINOPHEN 500 MG TAB PO PRN (10:41)
--- NOTE | 2021-10-15 11:33 | CT Scan Report ---
CT head/brain wo con CLINICAL HISTORY: fall, acute b/l leg pain, hit head @ tri COMPARISON STUDY: 08/25/2020 CT DOSE: 537.48 mGy.cm TECHNIQUE: Standard CT of the Brain was performed without IV contrast. A dose lowering technique was utilized adhering to the principles of ALARA. FINDINGS: Extraaxial space: There is no evidence for subdural hematoma. There are no extra-axial fluid collecti ons. Ventricles and cisterns: The ventricles are normal in size and configuration. There is no evidence f or midline shift or mass effect. Parenchyma: There is no subarachnoid or intraparenchymal hemorrhage. There is no evidence for an acu te infarct or cerebral edema. There is homogeneous attenuation of the brain parenchyma. There are no gross mass lesions. Bilateral basal ganglia calcifications are again seen. Osseous structures: There is no evidence for an acute fracture. The visualized paranasal sinuses are clear. The mastoid air cells are clear bilaterally. Soft tissues: There is no evidence for focal soft tissue swelling. IMPRESSION: No acute intracerebral pathology. ACT 112: Negative or not required by law. Electronically signed by: Robert Jin M.D. 10/15/2021 11:31 AM
--- NOTE | 2021-10-15 17:15 | Magnetic Resonance Report ---
MR lumbar spine wo con CLINICAL HISTORY: Bilateral leg spasms and weakness. . Follow-up herniated gas COMPARISON: CT of the lumbar spine from 10/14/2021 TECHNIQUE: Multiplanar multisequence images of the Lumbar Spine were performed without contrast. FINDINGS: There is no evidence for vertebral body fracture. The heights of the vertebral bodies are maintained. The vertebral bodies are in anatomic alignment. Homogeneous marrow signal is seen without evidence f or marrow edema or marrow replacement. T12-L1: The disc space height is maintained. There are no focal disc protrusions or extrusions ident ified. The thecal sac and epidural fat are maintained. The neural foramen are patent bilaterally. Th ere is no evidence for nerve root encroachment. The facet joints are within normal limits. L1-2: The disc space height is maintained. There are no focal disc protrusions or extrusions identi fied. The thecal sac and epidural fat are maintained. The neural foramen are patent bilaterally. The re is no evidence for nerve root encroachment. The facet joints are within normal limits. L2-3: The disc space height is maintained. Behind the L2 disc space, there is a sharply defined sof t tissue density measuring 15 x 8 x 9 mm in craniocaudad, AP and transverse diameters respectively. W hile this could represent a large disc fragment, the disc appears normal with no definite evidence fo r herniation. The findings are most characteristic of an intradural, extramedullary mass such as a m eningioma or schwannoma. Repeat MR with contrast is recommended for further evaluation. The neural fo ramen are patent bilaterally. There is no evidence for nerve root encroachment. The facet joints are within normal limits. L3-4: There is mild disc space narrowing present. As seen on CT, there is an approximately 6 mm bro ad-based to left lateral disc protrusion/herniation present approaching upon the thecal sac anteriorl y and to the left. There is mild encroachment upon the left neural foramen. No right foraminal encro achment is seen. There is no evidence for nerve root encroachment. The facet joints are within normal limits. L4-5: The disc space height is maintained. As seen on CT, there is an approximately 4 to 5 mm broad -based disc protrusion/herniation present. This encroaches upon the thecal sac anteriorly and upon t he origins of the neural foramen bilaterally. There is no evidence for nerve root encroachment. There is mild hypertrophic facet joint disease present bilaterally. L5-S1: There is marked disc space narrowing with a 4 mm broad-based disc protrusion/herniation prese nt. Due to the increase amount of epidural fat anterior to the thecal sac at this level, there is no encroachment upon the thecal sac. However, there is evidence for encroachment upon the right S1 ner ve root within the lateral recess with swelling of the nerve root. No significant foraminal encroachm ent is seen. The facet joints are within normal limits. IMPRESSION: 1. Evidence for an intradural extra medullary mass posterior to the L2-3 disc space level with the ma paulina differential diagnosis being meningioma versus chronic trauma. Repeat MR with contrast is recomme nded. 2. Broad-based the left lateral disc protrusion/herniation at L3-4. 3. Broad-based disc protrusion/herniation at L4-5. 5. Broad-based disc protrusion/herniation L5-S1. Please see discussion of each disc space level above . ACT 112: Negative or not required by law. Electronically signed by: Robert Jin M.D. 10/15/2021 5:14 PM
[2021-10-15] MEDS ORDERED: LORazepam 0.5 MG/1 ML VIAL IV PRN (18:02)
[2021-10-15] MEDS: rOPINIRole HCL 1 MG TABLET PO SCH (19:52)
[2021-10-15] MEDS ORDERED: ENOXAPARIN INJ 60 MG/0.6 ML SYR SQ SCH (21:00)
[2021-10-15] MEDS ORDERED: ENOXAPARIN INJ 40 MG/0.4 ML SYR SQ SCH (21:00)
[2021-10-15] MEDS: MoRPHine SULFATE 2 MG/ML CARP IV PRN (21:04)
[2021-10-15] MEDS ORDERED: GADOBUTROL 10ML VIAL IV ONE (21:29)
--- NOTE | 2021-10-15 22:53 | Magnetic Resonance Report ---
MR lumbar spine wo/w con CLINICAL HISTORY: follow up MRI w/o b/l LE weakness/pain, meningioma. TECHNIQUE: Multiplanar multisequence images of the Lumbar Spine were performed with and without IV c ontrast. Contrast Volume: 9 ml of Gadavist COMPARISON: MR lumbar without contrast from 10/15/2021 FINDINGS: There is no evidence for vertebral body fracture. The heights of the vertebral bodies are maintained. The vertebral bodies are in anatomic alignment. Homogeneous marrow signal is seen without evidence for marrow edema or marrow replacement. There is no abnormal marrow enhancement following c ontrast administration. At the L2-3 disc space level, there is again a sharply defined soft tissue mass posterior to the L2-3 disc which demonstrates diffuse enhancement following contrast excretion. Findings are again charact eristic of an intradural, extramedullary lesion. It again measures approximately 15 x 9 x 10 mm on th e current study which is unchanged. Differential diagnosis again includes meningioma versus 101. IMPRESSION: Post contrast MRI confirms an enhancing intradural, extra medullary lesion at the L2-3 di sc space characteristic of a meningioma versus schwannoma. ACT 112: Negative or not required by law. Electronically signed by: Robert Jin M.D. 10/15/2021 10:52 PM
[2021-10-16] MEDS: MoRPHine SULFATE 2 MG/ML CARP IV PRN (00:35)
[2021-10-16] MEDS: CYANOCOBALAMIN 1000 MCG/ML VIAL IM SCH (08:43)
--- NOTE | 2021-10-16 09:36 | Orthopedic Consultation ---
Date of Consultation October 16, 2021 Assessment & Plan (1) Lumbar disc herniation with radiculopathy: Assessment massive disc herniation with severe neural encroachment and progressive neuro deficit L2-L3. Plan at this time and recommending urgent lumbar decompression and fusion L2-L3. He is currently on Lovenox which will be held. I will make him n.p.o. We will plan for surgery first thing tomorrow. He would require aggressive bilateral medial facetectomies to safely and adequately remove the central disc herniation. This would render him unstable and subsequently requiring fusion for stabilization. Risk benefits pros cons alternatives were outlined in detail. Patient understands and agrees. We will make n.p.o. after midnight. Lovenox has been held. History of Present Illness Reason for Consultation: Back pain with bilateral leg pain and weakness Attending Physician: Rolando Cantrell DO History of Present Illness This is a 46-year-old male presents to the emergency room Saturday with onset of severe bilateral leg pain and weakness. Describes a sudden onset with inability to ambulate. The right leg appears to be worse than the left with radiation of the thigh extension below the knee into the feet. Coughing sneezing shoots pain down the legs. He is unable to ambulate secondary to pain. He is only comfortable in a seated position. He currently denies any perineal numbness or loss of bowel or bladder control. Allergies Allergy/AdvReac Type Severity Reaction Status Date / Time Penicillins Allergy Unknown Unknown Verified 10/14/21 21:07 fentanyl AdvReac Intermediate Vomiting Verified 10/14/21 21:07 Home Medications Medication Instructions Recorded Confirmed Type ibuprofen 200 mg tablet 800 mg PO Q6H PRN 04/02/21 10/14/21 History ropinirole 3 mg tablet 3 mg PO HS 10/14/21 10/14/21 History cyclobenzaprine 10 mg tablet 10 mg PO BID PRN 10/15/21 10/15/21 History Patient History Medical History (Updated 10/16/21 @ 09:34 by Miky Joya DO) Diverticulitis Restless leg syndrome Surgical History History of ankle surgery History of bowel resection History of cervical spinal arthrodesis History of lumbosacral spine surgery Family History (Updated 10/15/21 @ 01:33 by Criss Gerard DO) Other No significant family history Social History Smoking Status: Never smoker Hx Alcohol Use: No Hx Substance Use: No Preferred Language: [place] Communication Ability: Effective 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 When he sits upright he gets shocklike pains down the legs. He has bilateral tension signs. Reasonable plus 5 out of 5 plantar flexion dorsiflexion extensor hallucis longus with breakaway weakness to the bilateral quadriceps. Sensory is limited to light touch. Deep tendon reflexes diminished. Results & Data ([facility]) Vital Signs (Past 12 Hours) Vital Signs Temp Pulse Resp BP Pulse Ox 10/16/21 08:47 37 C 56 L 18 134/80 96
--- NOTE | 2021-10-16 11:24 | Hospitalist Progress Note ---
Date of Service October 16, 2021 Assessment & Plan (1) Bilateral lower extremity pain: Plan: 46 y/o M w/ PMHx of RLS and spinal pathology who presents w/ a day of acute bilateral lower extremity cramping and paresthesias. Lumbar MRI (Addendum) - 14 x 12 x 10 mm lobular slightly heterogenous focus posterior to the L2-L3 vertebral body which appears to be extradural and not intradural as described on the previous study. Therefore, most likely represents a large disc extrusion/disc fragment. Resulting in severe central canal narrowing with displacement/mass effect along the cauda equina. Central canal at this level measures 2.5 mm in AP diameter. Most likely cause is disc-related pathology considering recent fall, positive SLR on right, hx of lumbar surgery, and current findings on lumbar CT. - Broad-based left lateral disc protrusion/herniation at L3-4. - Broad-based disc protrusion/herniation at L4-5. - Moderate to marked disc space narrowing at L5-S1 is again seen. Head CT - no acute findings CK mild elevation at 226 on admit. Got 1L NSS. TSH wnl - no further intervention warranted at this time Venous Doppler negative for DVTs Continue ice/voltaren gel. Ordered 1gm tylenol prn. Flexeril also available prn B12 low normal/deficient and started on supplementation -- hx bowel perf/resectioned pt 6-7 yrs ago (upon review of chart patient had several weeks lower abdominal discomfort and suddenly worsened and CT showed diverticulitis with possible area of perforation back in 2013, surgery by Dr. De La Rosa) --> No abdominal pain/nausea/pain on examination Dr Joya on consult --> plan for surgical intervention in AM PT/OT for evaluations post-operatively (2) History of lumbosacral spine surgery: Plan: - see above Mahnaz on consult (3) Restless leg syndrome: Plan: - continue home ropinirole Check iron panel for completeness given low ferritin can worsen/mask symptoms of RLS - pending (4) COVID-19: Plan: +COVID on admission -- not vaccinated or boosted. --> Per patient, had symptoms myalgia/chills around [place] time with fall/hit back of head. No headache or vision changes - no respiratory symptoms and is saturating appropriately on room air. lungs clear on examination - Venous doppler negative for DVT - Per infection control - mainain contact precautions at this time as cannot definitively state had COVID back at [place] and will need continued isolation measures Plan: Disposition: Planning on surgical intervention in AM Admission and Anticipated Discharge Date Admission Date: October 15, 2021 Subjective No acute events overnight. Pain is minimal as long as he doesnt move. Minimal movement induces pain. He is without respiratory symptoms. No cough, sputum, nasal congestion, fever, or SOB. On RA with appropriate oxygenation. Is anticipating surgery in AM. Review of Systems Review of Systems: All systems reviewed & are unremarkable except as noted in Subjective Physical Exam Physical Exam: PHYSICAL EXAM General Appearance: WDWN in NAD who is A&O x 3 HEENT: Head is normocephalic/atraumatic; Hearing grossly intact Neck: Supple; Trachea midline; Neg JVD Heart: RRR with no M/G/R Lungs: CTA in all lung cottrell bilaterally; Respirations unlabored; Neg accessory muscle use Abdomen: Soft, non-tender, non-distended; Positive BS x 4 quadrants Extremities: Neg cyanosis or edema Neurological: Speech clear Psychiatric: Appropriate mood/affect Skin: Normal Color; Warm/Dry Results & Data Results & Data ([facility]) Vital Signs (Past 12 Hours) Vital Signs Temp Pulse Resp BP Pulse Ox 10/16/21 08:47 37 C 56 L 18 134/80 96 PG Care Time/CCT Total # of Minutes Spent Total Time Spent with Patient: Total time spent is greater than 50% in coordination of care (as documented) at patient's floor/unit and/or counseling patient: Coding Level of Care Code 82079 Subseq Hosp Care Lvl 3 Diagnoses Bilateral lower extremity pain M79.604; M79.605 History of lumbosacral spine surgery Z98.890 Restless leg syndrome G25.81 COVID-19 U07.1
--- NOTE | 2021-10-16 12:14 | Anesthesiology Consultation ---
Date of Service October 16, 2021 Assessment & Plan (1) Encounter for pre-operative examination: Chart Review Chart Review: Acceptable Risk for Surgery and Patient NOT seen in Pre Admission Testing Consults Requested none Additional Notes Obese 46 year old man, possibly COVID positive, with symptomatic lumbar disc herniation scheduled for L2L3 decompression and fusion. Order placed for preoperative EKG. Pt will require full COVID precautions in the operating room. History Surgery Operation Date: 10/17/21 09:00 Proposed Procedures p L2-L3 Decompression Fusion - Miky Joya DO Height/Weight Height: 5 ft 6 in Weight: 95.254 kg Allergies Allergy/AdvReac Type Severity Reaction Status Date / Time Penicillins Allergy Unknown Unknown Verified 10/14/21 21:07 fentanyl AdvReac Intermediate Vomiting Verified 10/14/21 21:07 Medications Home Medications Medication Instructions Recorded Confirmed Last Taken ibuprofen 200 mg tablet 800 mg PO Q6H PRN 04/02/21 10/14/21 04/01/21 800 mg ropinirole 3 mg tablet 3 mg PO HS 10/14/21 10/14/21 Unknown cyclobenzaprine 10 mg tablet 10 mg PO BID PRN 10/15/21 10/15/21 Unknown Active Medications Generic Name Dose Route Start Last Admin Trade Name Freq PRN Reason Stop Dose Admin Cyanocobalamin 1,000 mcg 10/15/21 09:00 10/16/21 08:43 Cyanocobalamin 1000 Mcg/Ml Vial IM 11/14/21 08:59 1,000 mcg QAM JOMAR Administration Cyclobenzaprine HCl 10 mg 10/15/21 07:00 10/15/21 21:46 Cyclobenzaprine Hcl 10 Mg Tab PO 11/14/21 06:59 10 mg BID PRN Administration muscle spasm Morphine Sulfate 1 mg 10/15/21 10:48 10/16/21 00:35 Morphine Sulfate 2 Mg/Ml Carp IV 10/29/21 10:47 1 mg Q4H PRN Administration Severe Pain Ropinirole HCl 3 mg 10/15/21 21:00 10/15/21 19:52 Ropinirole Hcl 1 Mg Tablet PO 11/14/21 20:59 3 mg HS JOMAR Administration Past Medical History Medical History Diverticulitis Restless leg syndrome Past Family History Family History Other No significant family history Past Surgical History Surgical History History of ankle surgery History of bowel resection History of cervical spinal arthrodesis History of lumbosacral spine surgery Social History Smoking Status: Never smoker Hx Alcohol Use: No Hx Substance Use: No Physical Exam Vital Signs Last Vital Signs Temp 37 C 10/16/21 08:47 Pulse 56 L 10/16/21 08:47 Resp 18 10/16/21 08:47 BP 134/80 10/16/21 08:47 Pulse Ox 96 10/16/21 08:47 Testing Laboratory Results 10/15/21 05:47 10/15/21 05:47 Urine Color Yellow 10/15/21 09:51 Urine Appearance Clear (Clear) 10/15/21 09:51 Urine pH 7.0 (4.5-7.5) 10/15/21 09:51 Ur Specific [place] 1.022 (1.000-1.030) 10/15/21 09:51 Urine Protein Negative (Negative) 10/15/21 09:51 Urine Glucose (UA) Negative (Negative) 10/15/21 09:51 Urine Ketones Negative (Negative) 10/15/21 09:51 Urine Nitrite Negative (Negative) 10/15/21 09:51 Ur Leukocyte Esterase Negative (Negative) 10/15/21 09:51
[2021-10-16 12:28] LABS: Iron 109 mcg/dl (35-175); Total Iron Binding Cap Calc 367 mcg/dl (250-450); Transferrin (FE) Percent Satur 30 % (20-50); Unsaturated Iron Binding Cap 258 mcg/dl (155-355)
[2021-10-16] MEDS: rOPINIRole HCL 1 MG TABLET PO SCH (21:46)
[2021-10-17] MEDS: CYANOCOBALAMIN 1000 MCG/ML VIAL IM SCH (07:25)
--- NOTE | 2021-10-17 11:18 | History & Physical Bridge Note ---
Date of Service October 17, 2021 History & Physical Bridge Note I have examined the patient, reviewed the History & Physical and in the interval since the performance of the History & Physical I have noted the following changes of clinical significance: Patient continues to have severe bilateral leg pain with progressive strength deficit. Lovenox has been held and is safe to pursue emergent decompression fusion today.
[2021-10-17] MEDS ORDERED: DEXAMETHASONE SOD INJ 4 MG/ML VIAL ONE (12:13)
[2021-10-17] MEDS ORDERED: LIDOCAINE 2% 2 ML VIAL/AMP(20MG/ML) INFIL ONE (12:13)
[2021-10-17] MEDS ORDERED: ONDANSETRON INJ 2 MG/ML 2 ML VIAL ONE (12:13)
[2021-10-17] MEDS ORDERED: MIDAZOLAM HCL 1 MG/ML 2ML VIAL ONE (12:13)
[2021-10-17] MEDS ORDERED: ePHEDrine sulfate 50 MG/ML SYR ONE (12:13)
[2021-10-17] MEDS ORDERED: ROCURONIUM BROMIDE 10 MG/ML 5 ML VIAL IV ONE (12:13)
[2021-10-17] MEDS ORDERED: NEOSTIGMINE METHYLSULFATE 1 MG/ML 10ML VIAL ONE (12:13)
[2021-10-17] MEDS ORDERED: PROPOFOL IV EMULSION 10 MG/ML 20 ML VIAL IV ONE ×2 (12:13→18:01)
[2021-10-17] MEDS ORDERED: GLYCOPYRROLATE 0.2 MG/ML VIAL ONE (12:13)
[2021-10-17] MEDS ORDERED: LARYING-O-JET KIT (LTA) ONE (12:13)
[2021-10-17] MEDS ORDERED: HYDROmorphone INJ 2 MG/ML SYR/VIAL ONE (12:14)
[2021-10-17] MEDS ORDERED: ceFAZolin 2000MG 2,000 MG/15 ML SYR IV ONE (13:28)
[2021-10-17] MEDS ORDERED: ceFAZolin 330 MG/ML 1 GM VIAL ONE ×2 (13:31→13:41)
[2021-10-17] MEDS ORDERED: BUPIVACAINE 0.5 % 5 MG/1 ML MPF 30ML VIAL ONE (13:41)
[2021-10-17] MEDS ORDERED: EPINEPHrine INJ 1 MG/ML AMP ONE (13:41)
--- NOTE | 2021-10-17 13:42 | Hospitalist Progress Note ---
Date of Service October 17, 2021 Assessment & Plan (1) Bilateral lower extremity pain: Plan: 46 y/o M w/ PMHx of RLS and spinal pathology who presents w/ a day of acute bilateral lower extremity cramping and paresthesias. Lumbar MRI (Addendum) - 14 x 12 x 10 mm lobular slightly heterogenous focus posterior to the L2-L3 vertebral body which appears to be extradural and not intradural as described on the previous study. Therefore, most likely represents a large disc extrusion/disc fragment. Resulting in severe central canal narrowing with displacement/mass effect along the cauda equina. Central canal at this level measures 2.5 mm in AP diameter. Most likely cause is disc-related pathology considering recent fall, positive SLR on right, hx of lumbar surgery, and current findings on lumbar CT. - Broad-based left lateral disc protrusion/herniation at L3-4. - Broad-based disc protrusion/herniation at L4-5. - Moderate to marked disc space narrowing at L5-S1 is again seen. Head CT - no acute findings CK mild elevation at 226 on admit. Got 1L NSS. TSH wnl - no further intervention warranted at this time Venous Doppler negative for DVTs Continue pain control B12 low normal/deficient and started on supplementation -- hx bowel perf/resectioned pt 6-7 yrs ago (upon review of chart patient had several weeks lower abdominal discomfort and suddenly worsened and CT showed diverticulitis with possible area of perforation back in 2013, surgery by Dr. De La Rosa) --> No abdominal pain/nausea/pain on examination Dr Joya on consult --> plan for surgical intervention today PT/OT for evaluations post-operatively (2) History of lumbosacral spine surgery: Plan: - see above Dr. Joya on consult (3) Restless leg syndrome: Plan: - Continue home ropinirole; Iron studies WNL (4) COVID-19: Plan: +COVID on admission -- not vaccinated or boosted. --> Per patient, had symptoms myalgia/chills around [place] time with fall/hit back of head. No headache or vision changes - no respiratory symptoms and is saturating appropriately on room air. lungs c lear on examination - Venous doppler negative for DVT - Per infection control - maintain contact precautions at this time as cannot definitively state had COVID back at [place] and will need continued isolation measures Plan: Disposition: Pending surgical intervention in AM; anticipate ability to return home when medically ready Admission and Anticipated Discharge Date Admission Date: October 15, 2021 Subjective No acute events overnight. Awaiting surgery this AM. Verbalizes no new complaints Review of Systems Review of Systems: All systems reviewed & are unremarkable except as noted in Subjective Physical Exam Physical Exam: PHYSICAL EXAM General Appearance: WDWN in NAD who is A&O x 3 HEENT: Head is normocephalic/atraumatic; Hearing grossly intact Neck: Supple; Trachea midline; Neg JVD Heart: RRR with no M/G/R Lungs: CTA in all lung cottrell bilaterally; Respirations unlabored; Neg accessory muscle use Abdomen: Soft, non-tender, non-distended; Positive BS x 4 quadrants Extremities: Neg cyanosis or edema Neurological: Speech clear Psychiatric: Appropriate mood/affect Skin: Normal Color; Warm/Dry Results & Data Results & Data ([facility]) Vital Signs (Past 12 Hours) Vital Signs Temp Pulse Resp BP Pulse Ox 10/17/21 07:27 36.6 C 60 14 142/91 H 95 PG Care Time/CCT Total # of Minutes Spent Total Time Spent with Patient: Total time spent is greater than 50% in coordination of care (as documented) at patient's floor/unit and/or counseling patient: Coding Level of Care Code 42298 Subseq Hosp Care Lvl 2 Diagnoses Bilateral lower extremity pain M79.604; M79.605 History of lumbosacral spine surgery Z98.890 Restless leg syndrome G25.81 COVID-19 U07.1
[2021-10-17] MEDS ORDERED: HYDROmorphone INJ 2 MG/ML SYR/VIAL IV PRN (14:13)
[2021-10-17] MEDS ORDERED: ATROPINE SULFATE 0.1 MG/ML 10ML SYR IV PRN (14:13)
[2021-10-17] MEDS ORDERED: ePHEDrine sulfate 50 MG/ML AMP IV PRN (14:13)
[2021-10-17] MEDS ORDERED: PROMETHAZINE HCL 12.5 MG in SODIUM CHLORIDE 0.9% 50 ML IV PRN ×2 (14:13→17:23)
[2021-10-17] MEDS ORDERED: ONDANSETRON INJ 2 MG/ML 2 ML VIAL IV PRN ×2 (14:13→17:23)
[2021-10-17] MEDS ORDERED: FLOSEAL HEMOSTATIC MATRIX 10ML TOP ONE (15:11)
--- NOTE | 2021-10-17 15:37 | Electrocardiogram Report ---
Test Reason : Blood Pressure : / mmHG Vent. Rate : 061 BPM Atrial Rate : 061 BPM P-R Int : 210 ms QRS Dur : 108 ms QT Int : 424 ms P-R-T Axes : 023 -02 020 degrees QTc Int : 426 ms Sinus rhythm with 1st degree A-V block Otherwise normal ECG When compared with ECG of 26-JUN-1999 20:14, No significant change was found Confirmed by Juan Bland ([id number]) on 10/17/2021 3:36:53 PM Referred By: REFERRED SELF Confirmed By:Juan Bland
--- NOTE | 2021-10-17 15:52 | Fluoroscopy Report ---
FL lumbar spine 2-3V CLINICAL HISTORY: L2-L3 Decompression Fusion COMPARISON STUDY: Lumbar spine MRI October 15, 2021. FLUOROSCOPY TIME: 24 seconds. FLUOROSCOPIC IMAGES: 2 FINDINGS: Exact localization is difficult given partial visualization of the lumbar spine. However, t hese images demonstrate discectomy likely at the L2-L3 level with posterior decompression and bilater al pedicle screw fusion. Hardware is intact. There are no unexpected radiopaque foreign bodies. IMPRESSION: Fluoroscopy provided during L2-L3 discectomy, posterior decompression and bilateral pedi nini screw fusion. ACT 112: Negative or not required by law. Electronically signed by: Jin Martinez M.D. 10/17/2021 3:50 PM
--- NOTE | 2021-10-17 16:03 | Operative Report ---
Post Operative Report Pre & Post Diagnosis Operation Date: 10/17/21 10:20 Preop diagnosis L2-L3 disc herniation with severe spinal stenosis Postop diagnosis Same I identified the patient and participated in the time-out.: Yes Procedure Operation Date: 10/17/21 10:20 #1 lumbar decompression bilateral medial facetectomies and foraminotomies L2-L3. #2 posterior spinal fusion L2-L3. #3 placement posterior instrumentation L2- L3. #4 interbody fusion L2-L3. #5 placement of peek cage 15 x 22 mm L2-L3. #6 placement locally harvested morselized autograft in the posterior lateral gutters. #7 placement of infuse collagen sponge, and master graft in the posterior lateral gutters and I factor interbody space. Surgeon Miky Joya, DO Autographer None Estimated Blood Loss 150 Findings See Below The patient is 5 foot 6 inches tall weighing over 95 kg with a BMI in excess of 33. Patient's body habitus did contribute to significant technical difficulty required deepest retractors longus instruments in order to perform his procedure. This at least 50% increased operative time. Specimens None Indications This is a 46-year-old male presents with severe back bilateral leg pain and progressive weakness. He is unable to ambulate secondary to the weakness and pain. Subsequently he is here for emergent decompression fusion. Description of Procedure Patient was met with identified informed consent obtained. Patient was then taken to the operative suite underwent ablation placed in a prone position the [facility] top [place] frame. All bony prominences well-padded eyes inspected to ensure no external pressure placed upon them. This point the lumbar spine was prepped and draped no sterile fashion. Sharp dissection with the assistance of Bovie cautery was performed down to and exposing the lamina and transverse processes of L2 and L3. Several 10 retractors placed. Then performed a comp lete laminectomy of L2 including bilateral medial facetectomies and foraminotomies for adequate canal decompression. After complete was able to explore along the anterior aspect of thecal sac and remove massive amounts of disc material that occupied the center of the canal. After this complete pedicle screws were then placed at L2 and L3 bilaterally with assistance of fluoroscopy and appropriately sized dorcas placed. Bilateral transforaminal approach on right complete discectomy will to L3 was performed endplates. To subcortical being bone and a 15 x 22 mm peek cage filled with I factor tapped in position. The rods were then compressed locked in final position bilaterally. Transverse processes of L2 and L3 burred to subcortical bleeding bone. Infuse collagen sponge master graft local autograft was placed in the posterior gutters. 15 round SOPHIE drain inserted. The incision was then closed with 1 Vicryl the fascia 2-0 Vicryl subcutaneously and 4 Monocryl for final skin closure. Steri-Strip sterile dressing was placed. Patient waken taken PACU stable condition. I attest to the content of the Intraoperative Record and any orders documented therein. Any exceptions are noted below.
--- NOTE | 2021-10-17 16:57 | Anesthesiology Progress Note ---
Date of Service October 17, 2021 Anesthesia Post Procedure Vital Signs Vital Signs: Temp Pulse Pulse Resp BP BP Pulse Ox 10/17/21 16:50 40 L 15 131/73 99 10/17/21 16:40 42 L 12 119/63 96 10/17/21 16:30 46 L 11 L 142/76 H 98 10/17/21 16:20 49 L 13 130/89 98 10/17/21 16:10 97.2 F L 50 L 14 148/97 H 98 10/17/21 07:27 97.9 F 60 14 142/91 H 95 10/16/21 21:47 98.1 F 59 L 16 134/84 96 Pain Intensity Bilateral Calf: Pain Intensity: 3 Transfer of Care Handoff Completed per policy Notes Mental Status: alert / awake / arousable and participated in evaluation Patient Amnestic to Procedure: Yes Nausea / Vomiting: adequately controlled Pain: adequately controlled Airway Patency, RR, SpO2: stable & adequate BP & HR: stable & adequate Hydration State: stable & adequate Anesthetic Complications: no major complications apparent and Pt Satisfied with anesthetic care
[2021-10-17] MEDS ORDERED: hydrOXYzine HCl 25 MG TAB PO PRN (17:23)
[2021-10-17] MEDS ORDERED: LORazepam 0.5 MG/1 ML VIAL IV PRN (17:23)
[2021-10-17] MEDS ORDERED: ACETAMINOPHEN 1,000 MG/100 ML VIAL IV PRN (17:23)
[2021-10-17] MEDS ORDERED: ACETAMINOPHEN 500 MG TAB PO PRN (17:23)
[2021-10-17] MEDS ORDERED: HYDROmorphone INJ 1 MG/ML SYRINGE IV PRN (17:23)
[2021-10-17] MEDS ORDERED: DO NOT ADMINISTER PNEUMOCOCCAL VACCINE PRN (17:23)
[2021-10-17] MEDS ORDERED: DO NOT ADMINISTER FLU VACCINE PRN (17:23)
[2021-10-17] MEDS ORDERED: SOD PHOSPHATE/SOD BIPHOSPHATE ENEMA 132 ML BTL PR PRN (17:23)
[2021-10-17] MEDS ORDERED: bisacodyL 10 MG SUPP PR PRN (17:23)
[2021-10-17] MEDS ORDERED: MAGNESIUM HYDROXIDE SUSP 30 ML UDC PO PRN (17:23)
[2021-10-17] MEDS ORDERED: LORazepam 0.5 MG TAB PO PRN (17:23)
[2021-10-17] MEDS ORDERED: NALOXONE HCL 0.4 MG/1 ML VIAL/CARP IV PRN (17:23)
[2021-10-17] MEDS ORDERED: diphenhydrAMINE Capsule 25 MG CAP PO PRN (17:23)
[2021-10-17] MEDS ORDERED: HYDROmorphone INJ 0.5 MG/0.5 ML SYR IV PRN (17:23)
[2021-10-17] MEDS ORDERED: METOCLOPRAMIDE HCL INJ 5 MG/ML 2 ML VIAL IV PRN (17:23)
[2021-10-17] MEDS ORDERED: ALUMINUM/MAGNESIUM SUSP 30 ML UDC PO PRN (17:23)
[2021-10-17] MEDS ORDERED: FAMOTIDINE 20 MG TAB PO PRN (17:23)
[2021-10-17] MEDS ORDERED: ONDANSETRON 4 MG OD TAB PO PRN (17:23)
[2021-10-17] MEDS: LACTATED RINGER'S 1,000 ML IV SCH (17:44)
--- NOTE | 2021-10-17 20:02 | Communication Note ---
Date of Service: October 17, 2021 Asked by pharmacy to clarify perioperative antibiotics. Patient received preop Ancef but had clindamycin ordered postop which is usually reserved for patient who have allergy and cannot tolerate Ancef. Clarified hx of penicillin allergy with patient: distant hx during childhood that he does not remember reaction to (mother had told him). He did not have any reaction to the preop Ancef. Therefore, patient will receive 2 doses of postop Ancef instead of Clindamycin.
[2021-10-17] MEDS: DOCUSATE SODIUM/SENNA 50/8.6MG TAB PO SCH (21:09)
[2021-10-17] MEDS: traMADol HCL 50 MG TABLET PO PRN (21:09)
[2021-10-17] MEDS: rOPINIRole HCL 1 MG TABLET PO SCH (21:10)
[2021-10-17] MEDS: ceFAZolin 2000MG 2,000 MG/15 ML SYR IV SCH (22:03)
[2021-10-17] MEDS ORDERED: CLINDAMYCIN 600 MG in DEXTROSE 5% 50 ML IV SCH (22:15)
[2021-10-18] MEDS: LACTATED RINGER'S 1,000 ML IV SCH (00:30)
[2021-10-18] MEDS: POLYETHYLENE (MIRALAX) 17 GM PACK PO SCH ×4 (05:58→23:32)
[2021-10-18] MEDS: ceFAZolin 2000MG 2,000 MG/15 ML SYR IV SCH (05:58)
[2021-10-18 08:34] LABS: Basophils # (auto) 0.01 K/uL (0-0.2); Basophils % (auto) 0.1 %; Hematocrit (blood only) 42.5 % (42-52); Hemoglobin 14.4 g/dL (14.0-18.0); Immature Granulocytes # (auto) 0.03 K/uL (0.00-0.02); Immature Granulocytes % (auto) 0.2 %; Lymphocytes # (auto) 0.97 K/uL (1.2-3.4); Lymphocytes % (auto) 7.3 %; Mean Corpuscular Hemoglobin 29.6 pg (25-34); Mean Corpuscular Hgb Conc 33.9 g/dL (32-36); Mean Corpuscular Volume 87.3 fL (80-100); Mean Platelet Volume 9.5 fL (7.4-10.4); Monocytes # (auto) 0.82 K/uL (0.11-0.59); Monocytes % (auto) 6.2 %; Neutrophils # (auto) 11.47 K/uL (1.4-6.5); Neutrophils % (auto) 86.2 %; Platelet Count 359 K/uL (130-400); RDW Coefficient of Variation 13.8 % (11.5-14.5); RDW Standard Deviation 44.1 fL (36.4-46.3); Red Blood Count 4.87 M/uL (4.7-6.1)
[2021-10-18 09:00] LABS: BUN Creatinine Ratio 15.6 (10-20); Calcium 8.9 mg/dl (8.5-10.1); Creatinine Clr Calc Pharmacy 89.5 ml/min; Est GFR (African American) 92.5 ml/min; Est GFR (Non-African American) 79.8 ml/min; Potassium 4.4 mmol/L (3.5-5.1)
[2021-10-18] MEDS: CYANOCOBALAMIN 1000 MCG/ML VIAL IM SCH (09:30)
[2021-10-18] MEDS: dexAMETHasone 6 MG in SYRINGE 0 ML IV SCH (09:30)
[2021-10-18] MEDS: oxyCODONE HCL IR 5 MG TAB (IMMEDIATE RELEASE) PO PRN ×2 (09:44→18:09)
--- NOTE | 2021-10-18 09:53 | Orthopedic Progress Note ---
Date of Service October 18, 2021 Assessment & Plan (1) Lumbar disc herniation with radiculopathy: Plan: This time initiate physical therapy. Monitor his SOPHIE output hopefully discharge home Saturday. Admission and Anticipated Discharge Date Admission Date: October 15, 2021 Subjective Back pain is controlled leg symptoms markedly improved Physical Exam Physical Exam: Patient is in the chair at the bedside. He is comfortable. He is neurologically intact. Results & Data ([facility]) Vital Signs (Past 12 Hours) Vital Signs Temp Pulse Resp BP Pulse Ox 10/18/21 03:10 36.9 C 70 16 115/75 94 10/17/21 22:04 37.1 C 84 18 121/79 94
--- NOTE | 2021-10-18 12:11 | Hospitalist Progress Note ---
Date of Service October 18, 2021 Assessment & Plan (1) Bilateral lower extremity pain: Plan: 46 y/o M w/ PMHx of RLS and spinal pathology who presents w/ a day of acute bilateral lower extremity cramping and paresthesias. - Lumbar MRI (Addendum) - 14 x 12 x 10 mm lobular slightly heterogenous focus posterior to the L2-L3 vertebral body which appears to be extradural and not intradural as described on the previous study. Therefore, most likely represents a large disc extrusion/disc fragment. Resulting in severe central canal narrowing with displacement/mass effect along the cauda equina. Central canal at this level measures 2.5 mm in AP diameter. - Most likely cause is disc-related pathology considering recent fall, positive SLR on right, hx of lumbar surgery, and current findings on lumbar CT. - Broad-based left lateral disc protrusion/herniation at L3-4. - Broad-based disc protrusion/herniation at L4-5. - Moderate to marked disc space narrowing at L5-S1 is again seen. - Head CT - no acute findings - CK mild elevation at 226 on admit. Got 1L NSS. TSH wnl - no further intervention warranted at this time - Venous Doppler negative for DVTs - B12 low normal/deficient and started on supplementation -- hx bowel perf/resectioned pt 6-7 yrs ago (upon review of chart patient had several weeks lower abdominal discomfort and suddenly worsened and CT showed diverticulitis with possible area of perforation back in 2013, surgery by Dr. De La Rosa) --> No abdominal pain/nausea/pain on examination - Dr Joya on consult --> plan for surgical intervention today - S/P Lumbar Decompression/Fusion and Instrumentation - Continue pain control and bowel regimen - PT/OT (2) History of lumbosacral spine surgery: Plan: - see above Dr. Joya on consult (3) Restless leg syndrome: Plan: - Continue home ropinirole; Iron studies WNL (4) COVID-19: Plan: +COVID on admission -- not vaccinated or boosted. --> Per patient, had symptoms myalgia/chills around [place] time with fall/hit back of head. No headache or vision changes - no respiratory symptoms and is saturating appropriately on room air. lungs clear on examination - Venous doppler negative for DVT - Per infection control - maintain contact precautions at this time as cannot definitively state had COVID back at [place] and will need continued isolation measures Plan: Disposition: Doing well post-operatively; continue therapy, per spine possible D/C on Saturday Admission and Anticipated Discharge Date Admission Date: October 15, 2021 Subjective No acute events overnight. Had surgery yesterday and sitting up in his chair today. Reports improvement with ability to get around since surgery. Tolerating a diet. Pain is controlled with current regimen. Verbalizes no new complaints Review of Systems Review of Systems: All systems reviewed & are unremarkable except as noted in Subjective Physical Exam Physical Exam: PHYSICAL EXAM General Appearance: WDWN in NAD who is A&O x 3 HEENT: Head is normocephalic/atraumatic; Hearing grossly intact Neck: Supple; Trachea midline; Neg JVD Extremities: Neg cyanosis or edema Neurological: Speech clear Psychiatric: Appropriate mood/affect Skin: Normal Color; Warm/Dry Results & Data Results & Data ([facility]) Vital Signs (Past 12 Hours) Vital Signs Temp Pulse Resp BP Pulse Ox 10/18/21 10:02 92 10/18/21 03:10 36.9 C 70 16 115/75 94 PG Care Time/CCT Total # of Minutes Spent Total Time Spent with Patient: Total time spent is greater than 50% in coordination of care (as documented) at patient's floor/unit and/or counseling patient: Coding Level of Care Code 79910 Subseq Hosp Care Lvl 2 Diagnoses Bilateral lower extremity pain M79.604; M79.605 History of lumbosacral spine surgery Z98.890 Restless leg syndrome G25.81 COVID-19 U07.1
[2021-10-18] MEDS: rOPINIRole HCL 1 MG TABLET PO SCH (20:54)
[2021-10-18] MEDS: DOCUSATE SODIUM/SENNA 50/8.6MG TAB PO SCH (20:54)
[2021-10-19] MEDS: traMADol HCL 50 MG TABLET PO PRN ×2 (05:33→15:50)
[2021-10-19] MEDS: POLYETHYLENE (MIRALAX) 17 GM PACK PO SCH ×3 (05:33→15:50)
[2021-10-19] MEDS: CYANOCOBALAMIN 1000 MCG/ML VIAL IM SCH (08:28)
[2021-10-19] MEDS: dexAMETHasone 6 MG in SYRINGE 0 ML IV SCH (08:28)
--- NOTE | 2021-10-19 09:15 | Orthopedic Progress Note ---
Date of Service October 19, 2021 Assessment & Plan (1) Lumbar disc herniation with radiculopathy: Plan: Patient is doing quite well. SOPHIE drain decreasing probably. He is okay for discharge per orthopedics. Admission and Anticipated Discharge Date Admission Date: October 15, 2021 Subjective Back pain controlled leg pain markedly improved Physical Exam Physical Exam: Patient is comfortable neurologically intact. Results & Data ([facility]) Vital Signs (Past 12 Hours) Vital Signs Temp Pulse Resp BP Pulse Ox 10/19/21 08:24 36.4 C L 62 18 142/77 H 94
[2021-10-19] MEDS ORDERED: MAGNESIUM HYDROXIDE SUSP 30 ML UDC PO ONE (09:54)
--- NOTE | 2021-10-19 13:56 | Discharge Summary ---
Date of Service October 19, 2021 Admission HPI Per Admitting Provider 46 y/o M w/ RLS and lumbar spinal surgery hx who presents w/ a day of acute bilateral lower extremity cramping and paresthesias. This started as severe left dorsal thigh cramping that spread to his calf and foot. 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 Later in the afternoon and more recently, his main complaint is in his dorsal right lower extremity, which starts slightly higher at the gluteal region. The cramping pain is constant and present at rest but exacerbated with movement and weight bearing. Endorses slight weakness of his lower extremity. Pain is worse d istally. There is mild paresthesias of his foot. Denies saddle anesthesia symptoms. No back pain currently. Does not feel like his RLS. Feels like jian horse that does not subside. Denies hx of similar symptoms in past. History notable for recent fall on ice 4 days ago, landed on tailbone; no pain or weakness after the fall. ED course: ED course: toradol 15 mg IV, flexeril 10 (home med), diazepam IM, morphine 4mg IV, NSS 1L. Patient tested covid positive. He is not covid immunized. Principal Diagnosis Lumbar Disc Excursion S/P Lumbar Decompression/Fusion Discharge Exam PHYSICAL EXAM General Appearance: WDWN in NAD who is A&O x 3 HEENT: Head is normocephalic/atraumatic; Hearing grossly intact Neck: Supple; Trachea midline; Neg JVD Extremities: Neg cyanosis or edema Neurological: Speech clear Psychiatric: Appropriate mood/affect Skin: Normal Color; Warm/Dry Discharge Data Allergies Allergy/AdvReac Type Severity Reaction Status Date / Time Penicillins Allergy Unknown Unknown Verified 10/14/21 21:07 fentanyl AdvReac Intermediate Vomiting Verified 10/14/21 21:07 Consultations 10/14/21 22:49 ED Decision to Admit Stat 10/15/21 10:06 Consult Orthopedic Surgery Routine Procedures Performed Operation Date: 10/17/21 10:20 Actual Procedures p L2-L3 Decompression Fusion(Not Applicable) - Miky Joya, Ordered Studies Lumbar Spine CT 10/14/21 21:06 CT lumbar spine wo con CLINICAL HISTORY: bilateral leg pain and LBP, recent fall COMPARISON STUDY: 08/07/2021 CT DOSE: 882.65 mGy.cm TECHNIQUE: Standard CT of the Lumbar Spine was performed without IV contrast. A dose lowering technique was utilized adhering to the principles of ALARA. FINDINGS: Bones: Bones are osteopenic. There is no evidence for an acute fracture or malalignment. The heights of the vertebral bodies are maintained. The vertebral bodies are in anatomic alignment. Disc spaces: Compared to the previous examination, there is again moderate to marked disc space narrowing L5-S1 with large bridging osteophyte formation anteriorly. At L3-4, there is a broad-based left lateral disc protrusion/herniation present. At L4-5, there is a broad-based disc protrusion/herniation present. Facet joints: There is mild hypertrophic facet joint disease at the lower 3 disc space levels. The sacroiliac joints are intact bilaterally. Soft tissues: The prevertebral soft tissues are within normal limits. IMPRESSION: 1. No acute abnormality. 2. Broad-based left lateral disc protrusion/herniation at L3-4 3. Broad-based disc protrusion/herniation at L4-5. 4. Moderate to marked disc space narrowing at L5-S1 is again seen. 5. Hypertrophic facet joint disease is also present at the lower 3 disc space levels. ACT 112: Negative or not required by law. Electronically signed by: Robert Jin M.D. 10/14/2021 10:04 PM Venous Doppler Study 10/15/21 02:23 US venous doppler LE BI CLINICAL HISTORY: BLE edema. RLE pain. COMPARISON: None available at the time of this dictation. TECHNIQUE: Bilateral lower extremity real-time compression venous ultrasound with Color Doppler imaging. Utilizing real-time ultrasonic imaging multiple real time high-resolution ultrasonic images with compression and noncompression maneuvers of the deep venous system in addition to color doppler imaging were performed from the common femoral vein through the proximal calf veins. FINDINGS: Currently there is normal compressibility of the deep venous system from the common femoral vein through the proximal calf veins. No current evidence of acu te thrombosis is identified. Impression: No evidence of deep venous thrombus. ACT 112: Negative or not required by law. Electronically signed by: Robert Jin M.D. 10/15/2021 8:[address] 10/15/21 10:52 CT head/brain wo con CLINICAL HISTORY: fall, acute b/l leg pain, hit head @ chirstmas COMPARISON STUDY: 08/25/2020 CT DOSE: 537.48 mGy.cm TECHNIQUE: Standard CT of the Brain was performed without IV contrast. A dose lowering technique was utilized adhering to the principles of ALARA. FINDINGS: Extraaxial space: There is no evidence for subdural hematoma. There are no extra-axial fluid collections. Ventricles and cisterns: The ventricles are normal in size and configuration. There is no evidence for midline shift or mass effect. Parenchyma: There is no subarachnoid or intraparenchymal hemorrhage. There is no evidence for an acute infarct or cerebral edema. There is homogeneous attenuation of the brain parenchyma. There are no gross mass lesions. Bilateral basal ganglia calcifications are again seen. Osseous structures: There is no evidence for an acute fracture. The visualized paranasal sinuses are clear. The mastoid air cells are clear bilaterally. Soft tissues: There is no evidence for focal soft tissue swelling. IMPRESSION: No acute intracerebral pathology. ACT 112: Negative or not required by law. Electronically signed by: Robert Jin M.D. 10/15/2021 11:31 AM Lumbar Spine MRI 10/15/21 13:09 MR lumbar spine wo con CLINICAL HISTORY: Bilateral leg spasms and weakness. . Follow-up herniated gas COMPARISON: CT of the lumbar spine from 10/14/2021 TECHNIQUE: Multiplanar multisequence images of the Lumbar Spine were performed without contrast. FINDINGS: There is no evidence for vertebral body fracture. The heights of the vertebral bodies are maintained. The vertebral bodies are in anatomic alignment. Homogeneous marrow signal is seen without evidence for marrow edema or marrow replacement. T12-L1: The disc space height is maintained. There are no focal disc protrusions or extrusions identified. The thecal sac and epidural fat are maintained. The neural foramen are patent bilaterally. There is no evidence for nerve root encroachment. The facet joints are within normal limits. L1-2: The disc space height is maintained. There are no focal disc protrusions or extrusions identified. The thecal sac and epidural fat are maintained. The neural foramen are patent bilaterally. There is no evidence for nerve root encroachment. The facet joints are within normal limits. L2-3: The disc space height is maintained. Behind the L2 disc space, there is a sharply defined soft tissue density measuring 15 x 8 x 9 mm in craniocaudad, AP and transverse diameters respectively. While this could represent a large disc fragment, the disc appears normal with no definite evidence for herniation. The findings are most characteristic of an intradural, extramedullary mass such as a meningioma or schwannoma. Repeat MR with contrast is recommended for further evaluation. The neural foramen are patent bilaterally. There is no evidence for nerve root encroachment. The facet joints are within normal limits. L3-4: There is mild disc space narrowing present. As seen on CT, there is an approximately 6 mm broad-based to left lateral disc protrusion/herniation present approaching upon the thecal sac anteriorly and to the left. There is mild encroachment upon the left neural foramen. No right foraminal encroachment is seen. There is no evidence for nerve root encroachment. The facet joints are within normal limits. L4-5: The disc space height is maintained. As seen on CT, there is an approximately 4 to 5 mm broad-based disc protrusion/herniation present. This encroaches upon the thecal sac anteriorly and upon the origins of the neural foramen bilaterally. There is no evidence for nerve root encroachment. There is mild hypertrophic facet joint disease present bilaterally. L5-S1: There is marked disc space narrowing with a 4 mm broad-based disc protrusion/herniation present. Due to the increase amount of epidural fat a nterior to the thecal sac at this level, there is no encroachment upon the thecal sac. However, there is evidence for encroachment upon the right S1 nerve root within the lateral recess with swelling of the nerve root. No significant foraminal encroachment is seen. The facet joints are within normal limits. IMPRESSION: 1. Evidence for an intradural extra medullary mass posterior to the L2-3 disc space level with the major differential diagnosis being meningioma versus chronic trauma. Repeat MR with contrast is recommended. 2. Broad-based the left lateral disc protrusion/herniation at L3-4. 3. Broad-based disc protrusion/herniation at L4-5. 5. Broad-based disc protrusion/herniation L5-S1. Please see discussion of each disc space level above. ACT 112: Negative or not required by law. Electronically signed by: Robert Jin M.D. 10/15/2021 5:14 PM Lumbar Spine MRI 10/15/21 17:41 MR lumbar spine wo/w con CLINICAL HISTORY: follow up MRI w/o b/l LE weakness/pain, meningioma. TECHNIQUE: Multiplanar multisequence images of the Lumbar Spine were performed with and without IV contrast. Contrast Volume: 9 ml of Gadavist COMPARISON: MR lumbar without contrast from 10/15/2021 FINDINGS: There is no evidence for vertebral body fracture. The heights of the vertebral bodies are maintained. The vertebral bodies are in anatomic alignment. Homogeneous marrow signal is seen without evidence for marrow edema or marrow replacement. There is no abnormal marrow enhancement following contrast administration. At the L2-3 disc space level, there is again a sharply defined soft tissue mass posterior to the L2-3 disc which demonstrates diffuse enhancement following contrast excretion. Findings are again characteristic of an intradural, ext ramedullary lesion. It again measures approximately 15 x 9 x 10 mm on the current study which is unchanged. Differential diagnosis again includes meningioma versus 101. IMPRESSION: Post contrast MRI confirms an enhancing intradural, extra medullary lesion at the L2-3 disc space characteristic of a meningioma versus schwannoma. ACT 112: Negative or not required by law. Electronically signed by: Robert Jin M.D. 10/15/2021 10:52 PM Lumbar Spine X-Ray 10/17/21 00:00 FL lumbar spine 2-3V CLINICAL HISTORY: L2-L3 Decompression Fusion COMPARISON STUDY: Lumbar spine MRI October 15, 2021. FLUOROSCOPY TIME: 24 seconds. FLUOROSCOPIC IMAGES: 2 FINDINGS: Exact localization is difficult given partial visualization of the lumbar spine. However, these images demonstrate discectomy likely at the L2-L3 level with posterior decompression and bilateral pedicle screw fusion. Hardware is intact. There are no unexpected radiopaque foreign bodies. IMPRESSION: Fluoroscopy provided during L2-L3 discectomy, posterior decompression and bilateral pedicle screw fusion. ACT 112: Negative or not required by law. Electronically signed by: Jin Martinez M.D. 10/17/2021 3:50 PM Hospital Course (1) Bilateral lower extremity pain: 46 y/o M w/ PMHx of RLS and spinal pathology who presents w/ a day of acute bilateral lower extremity cramping and paresthesias. - Lumbar MRI (Addendum) - 14 x 12 x 10 mm lobular slightly heterogenous focus posterior to the L2-L3 vertebral body which appears to be extradural and not intradural as described on the previous study. Therefore, most likely represents a large disc extrusion/disc fragment. Resulting in severe central canal narrowing with displacement/mass effect along the cauda equina. Central canal at this level measures 2.5 mm in AP diameter. - Most likely cause is disc-related pathology considering recent fall, positive SLR on right, hx of lumbar surgery, and current findings on lumbar CT. - Broad-based left lateral disc protrusion/herniation at L3-4. - Broad-based disc protrusion/herniation at L4-5. - Moderate to marked disc space narrowing at L5-S1 is again seen. - Head CT - no acute findings - CK mild elevation at 226 on admit. Got 1L NSS. TSH wnl - no further intervention warranted at this time - Venous Doppler negative for DVTs --> No abdominal pain/nausea/pain on examination - Dr Joya on consult - S/P Lumbar Decompression/Fusion and Instrumentation - Continue pain control and bowel regimen (2) History of lumbosacral spine surgery: - see above Dr. Joya on consult (3) Restless leg syndrome: - Continue home ropinirole; Iron studies WNL (4) COVID-19: +COVID on admission -- not vaccinated or boosted. --> Per patient, had symptoms myalgia/chills around [place] time with fall/hit back of head. No headache or vision changes - no respiratory symptoms and is saturating appropriately on room air. lungs clear on examination - Venous doppler negative for DVT Total Time Total Time Spent Total Time Spent (In Minutes): Spent greater than 30 minutes preparing patient for discharge. This includes discussion with patient/family, assessment, intervention, medication reconciliation, and coordination of care. Discharge Plan Discharge Items Patient Disposition: Home - Self-Care Reason For Visit: LOWER EXTREMITY CRAMPING Discharge Diagnosis: Lumbar discrimination with stenosis Activity: As commented below Non-emergency contact: Primary Care Provider Call non-emergency contact if: you have any medication questions Follow-up/Referrals: Miky Joya DO [Surgeon] - 11/03/21 8:00 am (REMINDING CALL WILL SAY BE THERE AT 830 A.M. BUT YOU MUST BE THERE AT 8:OO A.M. BRING SOMEONE WITH YOU IF YOU WANT TO. MAKE SURE YOU HAVE PHOTO I.D., INSURANCE CARD AND CURRENT MEDICATION LIST.) Fam Perry DO [Primary Care Provider] - 10/25/21 4:10 pm (YOU NEED TO CALL [phone] FROM CAR TO REGISTER +COVID FROM THE PARKING LOT.) Diet: Regular Addtl Attending Provider Instructions: ACTIVITY RECOMMENDATIONS: SELF CARE INSTRUCTIONS AFTER THORACIC/LUMBAR FUSIONS 1. You may walk to your tolerance. It is good exercise for your legs and back. Expect some back and intermittent leg aches and pains. 2. You may perform "counter-top" level activities (make a sandwich, donte with a project, etc.). 3. No bending or lifting of more than 10 pounds or back twisting of any nature (roll like a log when turning in bed). 4. You may ride in a car for 20-30 minutes at a time. No driving until after your first visit with your doctor. 5. Frequent changes of position and restricting sitting to 30 minutes at a time will help limit the amount of back spasms and stiffness you may experience. 6. You may discontinue the use of ambulatory aids (cane, crutches, etc.) once your strength and confidence allow. 7. You may teaching supervisor the shower and let water strike your incision when you arrive home at least once daily. Do not take a tub bath, sit in a hot tub or go into a swimming pool until after your first recheck in the office. SPECIAL CARE INSTRUCTIONS: VERY IMPORTANT TO READ AND REVIEW A. Your surgical incision has been closed with a cosmetic suture under the skin that will dissolve in about 6 weeks. In 14 days, you can use a pair of clean scissors and cut the suture that is left outside of the skin at the ends of your incision. 1. The small skin tapes can be removed 7 days after surgery if they have not fallen off by that point. 2. You may keep the wound open to air as much as possible to promote healing after post-op day number 5 unless told otherwise by your doctor. 3. If you think the wound looks like it is becoming infected (redness or worsening drainage) and/or you are experiencing fever, chill or worsening back pain and muscle spasms, contact the office so that we may evaluate you as soon as possible. B. Complications are uncommon, but please contact us if you have any signs or symptoms of: 1. wound infection (fever higher than 102.5 degrees F, redness, separation of wound, drainage, or increasing pain from the incision) 2. blood clots in legs (pain, swelling, redness and warmth in legs) 3. urinary tract infection (fever higher than 102.5 degrees F, burning upon urination or increased frequency of urination) 4. nerve problems (inability to walk on your toes or heels, numbness, loss of bowel or bladder control) 5. any other symptoms that concern you C. Please call the office at if you have any concerns or questio ns about your operation or recovery. D. No smoking! Smoking drastically decreases the chance of a solid fusion. E. Do not take any anti-inflammatory medications (Indocin, Advil, Motrin, Aspirin, Naprosyn, etc.) as these may inhibit the chance of a solid fusion. Tylenol is okay to take for pain. MANAGING PAIN AFTER SPINAL SURGERY 1. Narcotic medication is intended for short-term use and will be provided for surgical pain. Surgical pain usually lasts for a period of 4-6 weeks. Narcotic medication includes Percocet, Vicodin, Darvocet, Tylenol #3 or Lortab. 2. Longer-term pain is more appropriately treated with non-narcotic medication such as Tylenol ES. 3. Muscle spasm is not appropriately treated with narcotics. Muscle relaxers such as Soma, Flexeril or Skelaxin can be used along with Tylenol ES. 4. Remember that we all live with some "aches and pains". This is not unusual or uncommon after an injury or as we get older. a. Back pain is expected and may include muscle spasms for 4 to 6 weeks after surgery. The pain should gradually improve. If the pain worsens for no apparent reason, please contact the office. b. Intermittent leg pain may also be experienced and should not be concerned about unless it worsens for no apparent reason. If so, please contact the office. 5. We will provide appropriate medication within the normal guidelines of their prescribed use. We will also be very cautious and aware of potential abuse and extended duration of patients' medication needs. a. Pain medications are for your comfort and to assist with sleep and rest so that the tissue can heal. They are not provided in order to return to normal activity and should not be used through the day. To do so or worsening pain at night can result from ongoing tissue damage and development of tolerance to the prescribed medicine. 6. Please allow 2-3 days to process refills. Prescriptions will not be mailed but must be picked up at the office. FOLLOW UP VISIT: Keep your scheduled follow-up appointment. Any questions, please call the office at . Addtl Landing Gear Mechanic Provider Instructions: Bowel Regimen: - As you are able to move around more your bowels will start getting back to normal. However, pain medication can make them a bit sluggish - Recommend to take Miralax twice a day every day until regular bowel movements happen. You can get this over the counter -- It is safe to be more aggressive with Miralax and take one mixture every 30 minutes until you have a bowel movement if you do not go in the next day or two - We will also give you a prescription for Senokot which is a stimulant laxative to help move the bowels - It is also important to stay hydrated to help with the bowels - If you start having worsening belly pain, nausea, or vomiting please get ferny luated. - Thankfully your bowel sounds are good and you are passing gas. Pending Studies at Discharge: No Stand-Alone Forms: My [facility], Smoking Cessation Medications and DC Order Prescriptions: New tramadol 50 mg tablet 50 mg PO Q6H PRN (Reason: pain, moderate) Qty: 30 RF: 0 oxycodone 5 mg tablet 5 mg PO Q6H PRN (Reason: pain, severe) Qty: 30 RF: 0 sennosides-docusate sodium [Senokot-S] 8.6-50 mg Tablet 2 tab PO HS 14 Days Qty: 28 RF: 0 Continued ropinirole 3 mg tablet 3 mg PO HS RF: 0 cyclobenzaprine 10 mg tablet 10 mg PO BID PRN (Reason: muscle spasm) RF: 0 Discontinued ibuprofen 200 mg Tablet 800 mg PO Q6H PRN (Reason: Pain) RF: 0 Discharge Orders: Discharge Order (Routine); Ordered 10/19/21 Ordered By: Miky Null/Other Patient Handouts: After Back Surgery: Going Home, Back Surg Daily Life Tips, Back Surg Daily Life More Tips Admission Data Admit Date/Time: 10/15/21 10:54 Attending Provider: Rolando Cantrell Admit Provider: Glenn Bowden Primary Care Provider: Fam Perry Other Providers: Criss Gerard ; Miky Joya Other Interventions: Discharge Summary Assessment (RN) Last Done: 10/19/21 15:01 Supervising Physician Co-Signing Physician Notes Attending note: patient seen and examined with Joie Salazar PA-C. I agree with her discharge summary. I personally reviewed the labs and imaging findings. patient doing well since lumbar surgery, cleared for discharge by Dr. Joya, pain is controlled, he is ambulating - Lumbar radiculopathy, s/p lumbar surgery, see operative note for details: pain control, therapy, follow up with Dr. Joya in clinic - COVID 19: no signs of pneumonia, breathing well, no further need for isolation at home Coding Level of Care Code D/C DAY MANAGEMENT >30 MINS Diagnoses Bilateral lower extremity pain M79.604; M79.605 History of lumbosacral spine surgery Z98.890 Restless leg syndrome G25.81 COVID-19 U07.1
== END 2021-10-19 16:31 | disposition home or self-care (01) | DRG 453 ==
LOC: 3W 17:38 → ED 17:38 → SUATTDRO 23:58 → 3W 10-15 01:18

== ENCOUNTER 2025-05-16 10:38 | Inpatient (IN) ==
[2025-05-16] MEDS: ONDANSETRON INJ 2 MG/ML 2 ML VIAL IV STA (11:05)
[2025-05-16] MEDS: MoRPHine SULFATE 4 MG/ML 1 ML CARP\\VIAL IV STA (11:05)
[2025-05-16] MEDS: SODIUM CHLORIDE 0.9% 1,000 ML IV STA (11:05)
[2025-05-16] MEDS: FAMOTIDINE 20MG IV PUSH 20 MG/5 ML SYR IV STA (11:07)
--- NOTE | 2025-05-16 11:07 | Emergency Department Note ---
Impression & Plan Diffuse abdominal pain, Elevated lactic acid level, Dehydration, Acute hyperglycemia ED Provider Note NAME: RAMON BORGES AGE: 49 SEX: M : 1975 ARRIVES VIA: Walk-In INFORMANT: [Patient][family] ED PROVIDER(S): [Blake Burns MD] CHIEF COMPLAINT: Abdominal pain HISTORY OF PRESENT ILLNESS: The patient is a 49-year-old male who has had pain and bloating and difficulty with bowel movements for about 2 weeks. In the last 12 to 24 hours, the pain has worsened and become quite a bit more severe. The pain seems to worsen in waves. He is more bloated. He was very nauseated and almost vomited. He was sweating last night. The patient states that he has had a previous bowel perforation with emergent surgery. He has known diverticulitis. The patient states that on the way to the hospital, every bump caused significant discomfort. PMHx/PSHx/Social Hx: See Below PHYSICAL EXAM: GENERAL: Patient is in moderate distress from pain. HEENT: No acute trauma, normocephalic atraumatic, mucous membranes moist, no nasal congestion. NECK: No stridor, no adenopathy, no meningismus, trachea is midline. LUNGS: Clear to auscultation bilaterally, no wheeze, no rhonchi, breath sounds equal. HEART: Without murmurs gallops or rubs, regular rate and rhythm. ABDOMEN: Firm, distended, significantly diffusely tender consistent with peritonitis. EXTREMITIES: No cyanosis, full range of motion of all the joints without pain or difficulty. NEUROLOGIC: Oriented x 3, no acute motor or sensory deficits, no focal weakness. SKIN: No jaundice, no diaphoresis. DIFFERENTIAL DIAGNOSIS: Bowel perforation, diverticulitis, bowel obstruction, dehydration, electrolyte imbalance, UTI, urinary retention, among others. EMERGENCY DEPARTMENT PROCEDURES: MEDICAL DECISION MAKING: There is no leukocytosis or concerning anemia. There is a normal platelet count. No coagulopathy. No bandemia. No renal failure. Glucose was quite high at 360. Lactic acid level was elevated consistent with potential bowel ischemia versus dehydration. No concerning liver enzyme elevation. No evidence for pancreatitis. Urinalysis showed glucose, no infection. ECG showed a sinus bradycardia, no obvious ST elevation. Cardiac enzyme testing x 1 was not consistent with acute cardiac injury. Chest x-ray did not show pneumonia or free air. Abdominal and pelvis CT did not show diverticulitis or bowel perforation. No bowel obstruction. On exam, the patient appeared uncomfortable. The patient was given IV saline, 2 L in total. He received IV Zofran for nausea. He was given IV morphine for pain. He received IV Dilaudid for additional pain control. He was given IV Pepcid. A recheck blood sugar was performed showing improvement in the value, repeat was 251. The patient is feeling somewhat better but still complaining of abdominal pain. Given the complaints, given the patient's hyperglycemia and elevated lactic acid level, given his ongoing symptoms, admission is warranted. I spoke with the patient and case management, the on-call hospitalist was consulted. Prior/Outside records/notes reviewed: None ECG per my interpretation: Indication was abdominal pain. The ECG shows a sinus bradycardia with a rate of 59. There is potential old inferior and old anterior infarct. There is no acute ST elevation, no PVCs. The QTc is 419. Continuous Cardiac Monitoring per my interpretation: An order was placed for continuous cardiac monitoring. The monitor shows a rate of 56 with sinus bradycardia. Imaging/x-ray results per my interpretation: Chest x-ray does not show free air or pneumonia. Chronic Medical/Social conditions affecting care: History of previous bowel perforation. Care/Management discussed with: Case management, the on-call hospitalist. Level of care consideration(s): After review of the information above and other included data: --I believe the patient requires escalation of care to admission DISPOSITION: Admission Past Med/Surg History Problem List Acute hyperglycemia (Acute) Dehydration (Acute) Elevated lactic acid level (Acute) Diffuse abdominal pain (Acute) Diabetes Pain of right arm (Acute) Encounter for pre-operative examination COVID-19 (Acute) Bilateral lower extremity pain (Acute) Ambulatory dysfunction (Acute) Medical History Anxiety Allergic rhinitis Lumbar disc herniation with radiculopathy Restless leg syndrome Diverticulitis Surgical History History of lumbosacral spine surgery History of ankle surgery History of bowel resection History of cervical spinal arthrodesis Family History Other No significant family history Social History Smoking Status: Never smoker Hx Alcohol Use: No Hx Substance Use: No Preferred Language: Tamaz[place] Communication Ability: Effective Railroad Passenger Agent Required: No Beliefs That Will Affect Care: None marital status: Current Living Situation: Spouse and Family current occupational status: unemployed Feels Safe at Home: Yes Assistive Devices: Walker Allergies Allergies Allergy/AdvReac Type Severity Reaction Status Date / Time Penicillins Allergy Unknown Unknown Verified 02/03/23 20:23 fentanyl AdvReac Intermediate Vomiting Verified 02/03/23 20:23 Home Meds Home Medications Medication Instructions Recorded Confirmed ropinirole 3 mg tablet 3 mg PO HS 10/14/21 05/16/25 famotidine 40 mg tablet 40 mg PO BID 02/03/23 05/16/25 Men's Multivitamin 1 tab PO DAILY 05/16/25 05/16/25 Results & Data (ED) Vital Signs Vital Signs - 24 hr 05/16/25 10:50 05/16/25 11:12 05/16/25 11:12 Temperature 36.4 C Temperature Source Oral Pulse Rate 70 66 Pulse Rate [Apical] Pulse Rate from SpO2 Sensor Respiratory Rate 22 Respiratory Effort / Characteristics Spontaneous Short of Breath Respiratory Depth Normal Respiratory Pattern Regular Blood Pressure 150/70 H 144/72 H Blood Pressure [Right Arm] Blood Pressure Mean 96 88 Blood Pressure Mean [Right Arm] Blood Pressure Position Sitting Pulse Oximetry 96 Oxygen Delivery Method Room Air Sepsis Recent Fever Within 48 Hours No Sepsis New/Unexplained Change in Mental Status N/A Sepsis Action Taken by Nursing No Action Required 05/16/25 11:12 05/16/25 11:18 05/16/25 11:30 Temperature Temperature Source Pulse Rate 52 L 56 L 53 L Pulse Rate [Apical] Pulse Rate from SpO2 Sensor 52 L 52 L Respiratory Rate 20 16 Respiratory Effort / Characteristics Respiratory Depth Respiratory Pattern Blood Pressure Blood Pressure [Right Arm] Blood Pressure Mean Blood Pressure Mean [Right Arm] Blood Pressure Position Pulse Oximetry 94 96 93 Oxygen Delivery Method Room Air Sepsis Recent Fever Within 48 Hours Sepsis New/Unexplained Change in Mental Status Sepsis Action Taken by Nursing 05/16/25 11:30 05/16/25 12:30 05/16/25 12:30 Temperature Temperature Source Pulse Rate 61 Pulse Rate [Apical] Pulse Rate from SpO2 Sensor 57 L Respiratory Rate 12 Respiratory Effort / Characteristics Respiratory Depth Respiratory Pattern Blood Pressure 136/68 158/88 H Blood Pressure [Right Arm] Blood Pressure Mean 106 113 Blood Pressure Mean [Right Arm] Blood Pressure Position Pulse Oximetry 95 Oxygen Delivery Method Sepsis Recent Fever Within 48 Hours Sepsis New/Unexplained Change in Mental Status Sepsis Action Taken by Nursing 05/16/25 13:00 05/16/25 14:00 05/16/25 15:08 Temperature Temperature Source Pulse Rate 58 L 48 L Pulse Rate [Apical] 47 L Pulse Rate from SpO2 Sensor 56 L Respiratory Rate 21 16 Respiratory Effort / Characteristics Respiratory Depth Respiratory Pattern Blood Pressure Blood Pressure [Right Arm] 133/76 Blood Pressure Mean Blood Pressure Mean [Right Arm] 95 Blood Pressure Position Pulse Oximetry 96 92 Oxygen Delivery Method Room Air Sepsis Recent Fever Within 48 Hours Sepsis New/Unexplained Change in Mental Status Sepsis Action Taken by Snf Medications Current Medication List: was personally reviewed by me Laboratory Data Attestation: I reviewed the patient's lab results. 05/16/25 11:07 05/16/25 11:07 Lab Results 05/16/25 05/16/25 05/16/25 Range/Units 11:07 11:27 12:10 WBC 6.84 (4.8-10.8) K/ul RBC 4.92 (4.70-6.10) M/uL Hgb 15.0 (14.0-18.0) g/dl Hct 41.8 L (42.0-52.0) % MCV 85.0 (80.0-100.0) fL MCH 30.5 (25.0-34.0) pg MCHC 35.9 (32.0-36.0) g/dL RDW Std Deviation 40.7 (36.4-46.3) fL RDW Coeff of Alexander 13.2 (11.5-14.5) % Plt Count 316 (130-400) K/uL MPV 9.5 (9.4-12.4) fL Immature Gran % (Auto) 0.3 % Neut % (Auto) 64.3 % Lymph % (Auto) 21.8 % Huntington % (Auto) 6.7 % Eos % (Auto) 6.3 % Baso % (Auto) 0.6 % Neut # (Auto) 4.40 (1.40-6.50) K/uL Lymph # (Auto) 1.49 (1.20-3.40) K/uL Huntington # (Auto) 0.46 (0.11-0.59) K/uL Eos # (Auto) 0.43 (0.00-0.50) K/uL Baso # (Auto) 0.04 (0.00-0.20) K/uL Immature Gran # (Auto) 0.02 (0.01-0.20) K/uL PT 10.7 (9.0-12.0) Seconds INR 1.0 (0.9-1.1) APTT 25 (21-31) Seconds PTT Ratio 0.9 Sodium 134 L (136-145) mmol/L Potassium 3.9 (3.5-5.1) mmol/L Chloride 102 (98-107) mmol/L Carbon Dioxide 23 (21-32) mmol/L Anion Gap 9 (3-11) BUN 19 (6-23) mg/dl Creatinine 1.16 (0.6-1.4) mg/dl Est Cr Clr Drug Dosing 83.7 ml/min eGFR 76.26 BUN/Creatinine Ratio 16.4 (10-20) Glucose 361 H* (70-99(Fasting)) mg/dl POC Glucose (70-99) mg/dl Lactate 2.6 H* (0.4-2.0) mmol/L Calcium 9.5 (8.6-10.3) mg/dl Magnesium 1.9 (1.7-2.4) mg/dl Total Bilirubin 0.7 (0.2-1.0) mg/dl AST 24 (13-39) U/L ALT 37 (7-52) U/L Alkaline Phosphatase 70 (34-104) U/L Troponin I High Sens 5.8 (0-20) pg/ml Total Protein 7.1 (6.0-8.3) gm/dl Albumin 4.4 (3.4-5.0) gm/dl Globulin 2.7 (2.5-4.0) gm/dl Albumin/Globulin Ratio 1.6 (0.9-2) Lipase 21 (11-82) U/L Urine Color Yellow Urine Appearance Clear (Clear) Urine pH 5.0 (4.5-7.5) Ur Specific Freeman 1.032 H (1.000-1.030) Urine Protein Negative (Negative) Urine Glucose (UA) 3+ H (Negative) Urine Ketones Negative (Negative) Urine Blood Negative (Negative) Urine Nitrite Negative (Negative) Urine Bilirubin Negative (Negative) Urine Urobilinogen Negative (Negative) Ur Leukocyte Esterase Negative (Negative) Urine Comment 05/16/25 05/16/25 Range/Units 13:10 13:13 WBC (4.8-10.8) K/ul RBC (4.70-6.10) M/uL Hgb (14.0-18.0) g/dl Hct (42.0-52.0) % MCV (80.0-100.0) fL MCH (25.0-34.0) pg MCHC (32.0-36.0) g/dL RDW Std Deviation (36.4-46.3) fL RDW Coeff of Alexander (11.5-14.5) % Plt Count (130-400) K/uL MPV (9.4-12.4) fL Immature Gran % (Auto) % Neut % (Auto) % Lymph % (Auto) % Huntington % (Auto) % Eos % (Auto) % Baso % (Auto) % Neut # (Auto) (1.40-6.50) K/uL Lymph # (Auto) (1.20-3.40) K/uL Huntington # (Auto) (0.11-0.59) K/uL Eos # (Auto) (0.00-0.50) K/uL Baso # (Auto) (0.00-0.20) K/uL Immature Gran # (Auto) (0.01-0.20) K/uL PT (9.0-12.0) Seconds INR (0.9-1.1) APTT (21-31) Seconds PTT Ratio Sodium (136-145) mmol/L Potassium (3.5-5.1) mmol/L Chloride (98-107) mmol/L Carbon Dioxide (21-32) mmol/L Anion Gap (3-11) BUN (6-23) mg/dl Creatinine (0.6-1.4) mg/dl Est Cr Clr Drug Dosing ml/min eGFR BUN/Creatinine Ratio (10-20) Glucose (70-99(Fasting)) mg/dl POC Glucose 251 H (70-99) mg/dl Lactate 1.9 (0.4-2.0) mmol/L Calcium (8.6-10.3) mg/dl Magnesium (1.7-2.4) mg/dl Total Bilirubin (0.2-1.0) mg/dl AST (13-39) U/L ALT (7-52) U/L Alkaline Phosphatase (34-104) U/L Troponin I High Sens (0-20) pg/ml Total Protein (6.0-8.3) gm/dl Albumin (3.4-5.0) gm/dl Globulin (2.5-4.0) gm/dl Albumin/Globulin Ratio (0.9-2) Lipase (11-82) U/L Urine Color Urine Appearance (Clear) Urine pH (4.5-7.5) Ur Specific Freeman (1.000-1.030) Urine Protein (Negative) Urine Glucose (UA) (Negative) Urine Ketones (Negative) Urine Blood (Negative) Urine Nitrite (Negative) Urine Bilirubin (Negative) Urine Urobilinogen (Negative) Ur Leukocyte Esterase (Negative) Urine Comment Administered Medications Tramadol HCl (Tramadol Hcl 50 Mg Tablet) 50 mg PO Q4H PRN PRN Reason: Pain Stop: 06/15/25 15:40 Last Admin: 05/16/25 15:54 Dose: 50 mg Documented By: STEPHEN Discontinued Medications Bisacodyl (Bisacodyl 10 Mg Supp) 10 mg NE NOW STA Stop: 05/16/25 15:27 Last Admin: 05/16/25 15:36 Dose: 10 mg Documented By: STEPHEN Hydromorphone HCl (Hydromorphone Inj 0.5 Mg/0.5 Ml Syr) 0.5 mg IV NOW STA Stop: 05/16/25 13:01 Last Admin: 05/16/25 13:09 Dose: 0.5 mg Documented By: LOURDES Sodium Chloride (Nss) 1,000 mls @ 999 mls/hr IV .Q1H1M STA Stop: 05/16/25 11:57 Last Infusion: 05/16/25 12:05 Dose: Infused Documented By: Admin: 05/16/25 11:05 Dose: 999 mls/hr Documented By: ILEANA Famotidine (Pepcid 20mg Iv Push) 20 mg in 5 mls @ 2.5 mls/min IV NOW STA Stop: 05/16/25 11:05 Last Admin: 05/16/25 11:07 Dose: 2.5 mls/min Documented By: ILEANA Sodium Chloride (Nss) 500 mls @ 999 mls/hr IV .Q31M ONE Stop: 05/16/25 12:42 Last Infusion: 05/16/25 13:20 Dose: Infused Documented By: Admin: 05/16/25 12:43 Dose: 999 mls/hr Documented By: DANAE Sodium Chloride (Nss) 500 mls @ 999 mls/hr IV .Q31M ONE Stop: 05/16/25 13:59 Last Infusion: 05/16/25 14:43 Dose: Infused Documented By: Admin: 05/16/25 13:48 Dose: 999 mls/hr Documented By: STEPHEN Ioversol (Optiray 320 100ml) 94 ml IV ONCE ONE Stop: 05/16/25 12:24 Last Admin: 05/16/25 12:23 Dose: 94 ml Documented By: SANJEEV Morphine Sulfate (Morphine Sulfate 4 Mg/Ml 1 Ml Carp\Vial) 4 mg IV NOW STA Stop: 05/16/25 10:58 Last Admin: 05/16/25 11:05 Dose: 4 mg Documented By: ILEANA Ondansetron HCl (Ondansetron Inj 2 Mg/Ml 2 Ml Vial) 4 mg IV NOW STA Stop: 05/16/25 10:58 Last Admin: 05/16/25 11:05 Dose: 4 mg Documented By: ILEANA Imaging Data Radiologist's Impression: Abdomen/Pelvis CT 05/16/25 10:58 Clinical History: Abdominal pain Technique: Axial computed tomography images were obtained of the abdomen and pelvis after the administration of intravenous contrast. Comparison is made to the prior CT dated 10/15/2024 Findings: There is fatty infiltration of the liver. The liver is enlarged. No liver mass lesion is seen. The portal vein is patent. The gallbladder appears unremarkable. No bile duct dilatation is noted. The spleen is of normal size. No focal splenic lesion is evident. The pancreas appears normal with no sign of acute or chronic pancreatitis and no mass lesion noted. The pancreatic duct is of normal caliber. The adrenal glands appear unremarkable. No definite renal or proximal ureteral calculi are seen on this contrast-enhanced study. There is no hydronephrosis or perinephric stranding. No renal mass lesion is identified. The aorta is of normal caliber. There are scattered small mesenteric lymph nodes. No overt abdominal adenopathy is seen. There is a small to moderate sized hiatal hernia. There is no sign of small bowel obstruction. There are anastomotic sutures of the sigmoid colon. No free intraperitoneal fluid or air is identified. No distal ureteral or bladder calculi are seen. No bladder mass lesion is evident. The iliac arteries are of normal caliber. No pelvic adenopathy is noted. There are small bilateral inguinal hernias containing only fat The lungs bases appear clear. There is an L2-3 fusion. No fracture is identified. No focal osseous lesion is seen Impression: 1. Hiatal hernia 2. Fatty infiltration of the liver and hepatomegaly 3. Small bilateral inguinal hernias containing only fat Electronically signed by Selvin Warner 05-16-2025 13:04 PM Chest X-Ray 05/16/25 10:58 Clinical History: Chest pain Technique: A frontal view of the chest was obtained Findings: There are no confluent pulmonary infiltrates. The heart size is within normal limits. No pleural effusion or pneumothorax is seen. There is no definite pulmonary nodule. No fracture is noted. There is a cervical fusion Impression: No active disease Electronically signed by Selvin Warner 05-16-2025 11:31 AM Discharge Plan Visit Data Chief Complaint: Abdominal Pain Stated Complaint: SEVERE STOMACH PAIN ED Provider: Blake Burns Discharge Problem: Diffuse abdominal pain, Elevated lactic acid level, Dehydration, Acute hyperglycemia Patient Disposition: Admitted As Inpatient Condition: Fair Discharge Instructions Interventions: ED Discharge Assessment Last Done: 05/16/25 16:42
[2025-05-16 11:31] LABS: Hematocrit (blood only) 41.8 % (42.0-52.0); Hemoglobin 15.0 g/dl (14.0-18.0); Immature Granulocytes # (auto) 0.02 K/uL (0.01-0.20); Immature Granulocytes % (auto) 0.3 %; Mean Corpuscular Hemoglobin 30.5 pg (25.0-34.0); Mean Corpuscular Volume 85.0 fL (80.0-100.0); Platelet Count 316 K/uL (130-400); RDW Standard Deviation 40.7 fL (36.4-46.3); Red Blood Count 4.92 M/uL (4.70-6.10); White Blood Count 6.84 K/ul (4.8-10.8)
--- NOTE | 2025-05-16 11:31 | XRay Report ---
Clinical History: Chest pain Technique: A frontal view of the chest was obtained Findings: There are no confluent pulmonary infiltrates. The heart size is within normal limits. No pleural effusion or pneumothorax is seen. There is no definite pulmonary nodule. No fracture is noted. There is a cervical fusion Impression: No active disease Electronically signed by Selvin Warner 05-16-2025 11:31 AM
[2025-05-16 11:59] LABS: INR 1.0 (0.9-1.1); Partial Thromboplastin Time 25 Seconds (21-31); Prothrombin Time 10.7 Seconds (9.0-12.0)
[2025-05-16 12:04] LABS: Alanine Aminotransferase 37.0 U/L (7-52); Albumin Globulin Ratio 1.6 (0.9-2); Alkaline Phosphatase 70.0 U/L (34-104); Anion Gap 9.0 (3-11); Bilirubin,Total 0.7 mg/dl (0.2-1.0); Blood Urea Nitrogen 19.0 mg/dl (6-23); Calcium 9.5 mg/dl (8.6-10.3); Carbon Dioxide 23.0 mmol/L (21-32); Chloride 102.0 mmol/L (98-107); Creatinine Clr Calc Pharmacy 83.7 ml/min; Globulin 2.7 gm/dl (2.5-4.0); Glucose 361.0 mg/dl (70-99(Fasting)); Lipase 21.0 U/L (11-82); Magnesium 1.9 mg/dl (1.7-2.4); Potassium 3.9 mmol/L (3.5-5.1); Sodium 134.0 mmol/L (136-145); Total Protein 7.1 gm/dl (6.0-8.3)
[2025-05-16] MEDS: OPTIRAY 320 100ml IV ONE (12:23)
[2025-05-16 12:35] LABS: Appearance Urine Clear (Clear); Glucose Urine UA 3+ (Negative)
[2025-05-16] MEDS: SODIUM CHLORIDE 0.9% 500 ML IV ONE ×2 (12:43→13:48)
--- NOTE | 2025-05-16 13:04 | CT Scan Report ---
Clinical History: Abdominal pain Technique: Axial computed tomography images were obtained of the abdomen and pelvis after the administration of intravenous contrast. Comparison is made to the prior CT dated 10/15/2024 Findings: There is fatty infiltration of the liver. The liver is enlarged. No liver mass lesion is seen. The portal vein is patent. The gallbladder appears unremarkable. No bile duct dilatation is noted. The spleen is of normal size. No focal splenic lesion is evident. The pancreas appears normal with no sign of acute or chronic pancreatitis and no mass lesion noted. The pancreatic duct is of normal caliber. The adrenal glands appear unremarkable. No definite renal or proximal ureteral calculi are seen on this contrast-enhanced study. There is no hydronephrosis or perinephric stranding. No renal mass lesion is identified. The aorta is of normal caliber. There are scattered small mesenteric lymph nodes. No overt abdominal adenopathy is seen. There is a small to moderate sized hiatal hernia. There is no sign of small bowel obstruction. There are anastomotic sutures of the sigmoid colon. No free intraperitoneal fluid or air is identified. No distal ureteral or bladder calculi are seen. No bladder mass lesion is evident. The iliac arteries are of normal caliber. No pelvic adenopathy is noted. There are small bilateral inguinal hernias containing only fat The lungs bases appear clear. There is an L2-3 fusion. No fracture is identified. No focal osseous lesion is seen Impression: 1. Hiatal hernia 2. Fatty infiltration of the liver and hepatomegaly 3. Small bilateral inguinal hernias containing only fat Electronically signed by Selvin Warner 05-16-2025 13:04 PM
[2025-05-16] MEDS: HYDROmorphone INJ 0.5 MG/0.5 ML SYR IV STA (13:09)
--- NOTE | 2025-05-16 15:30 | History & Physical Report ---
Date of Service May 16, 2025 Assessment & Plan (1) Diabetes: (2) Abdominal pain: Plan #Abdominal pain #Constipation - admit to inpt, will place on tele given brandi and hypoxia while sleeping - given hx of abdominal surgery, concern for adhesions, though no overt obstruction, possible functional issues - CT abd / pelvis not showing anything pathologic - bisacodyl [place] - IVF - NPO for now, advance diet as tolerated - if not improving, GI consult #DM II - diet non compliant and also stopped taking Mounjaro few months ago - check A1c - correctional scale - glycemic pharmacy consult - pt's does not want pt to be discharged on metformin, but is open to other oral diabetic meds #AIME #Bradycardia #Hypoxia - due to OHSS - cont CPAP #RLS - cont ropinirole #DVT ppx: lovenox #Code status: full code History of Present Illness Chief Complaint: abdominal pain Primary Care Provider: Fam Perry, 49 yr old M with PMHx of DM II, diverticulitis s/p perforation s/p bowel resection (8-10 yrs ago) presents to [facility] on 05/16/25 for the evaluation of 2 weeks of abdominal pain. Pain started gradually and over the past 3 days, it became worse. His baseline BM is q3 days. However, recently, he has been having BMs once a week and stools are small. His last BM was yesterday. His appetite is also significantly low. Due to his pain being uncontrolled today, pt's brought him to the ED. Aside from his abdominal pain, nausea, he denies any other symptoms. Of note, he is diagnosed with DM II. Pt's does not want him to be taking Metformin due to side effects and complications (per people she knows). He was placed on Mounjaro. He took it for about 2 months and then stopped because he did not want to give himself an injection. Pt is also not diet compliant. He is noted to have bradycardia into the 40s and oxygen saturations into the 70s - 80s while he is sleeping. Per , he snores so much and is on CPAP, which their daughter is bringing in. Allergies Allergy/AdvReac Type Severity Reaction Status Date / Time Penicillins Allergy Unknown Unknown Verified 02/03/23 20:23 fentanyl AdvReac Intermediate Vomiting Verified 02/03/23 20:23 Home Medications Medication Instructions Recorded Confirmed Type ropinirole 3 mg tablet 3 mg PO HS 10/14/21 05/16/25 History famotidine 40 mg tablet 40 mg PO BID 02/03/23 05/16/25 History Men's Multivitamin 1 tab PO DAILY 05/16/25 05/16/25 History Past Med/Surg History Problem List (Updated 05/16/25 @ 16:57 by Cynthia Turner MD) Diabetes Pain of right arm (Acute) Encounter for pre-operative examination COVID-19 (Acute) Bilateral lower extremity pain (Acute) Ambulatory dysfunction (Acute) Medical History Anxiety Allergic rhinitis Lumbar disc herniation with radiculopathy Restless leg syndrome Diverticulitis Surgical History History of lumbosacral spine surgery History of ankle surgery History of bowel resection History of cervical spinal arthrodesis Family History Other No significant family history Social History Smoking Status: Never smoker Hx Alcohol Use: No Hx Substance Use: No Preferred Language: Sri Lankan Communication Ability: Effective Director Mobile Required: No Beliefs That Will Affect Care: None marital status: Current Living Situation: Spouse and Family current occupational status: unemployed Feels Safe at Home: Yes Assistive Devices: Walker Review of Systems Review of Systems: Comprehensive ROS completed and is otherwise negative. Physical Exam Physical Exam: Gen: lying in bed in mild discomfort HEENT: NC/AT, MMM Lungs: nonlabored breathing, CTAB CVS: s1s2nl, RRR Abd: nl bowel sounds, soft, distended and TTP : no osuna Ext: no edema Neuro: AAOx3 Psych: calm, cooperative Results & Data Results & Data Vital Signs (Past 12 Hours) Vital Signs Temp Pulse Pulse Resp BP BP Pulse Ox 05/16/25 15:08 48 L 05/16/25 14:00 47 L 16 133/76 92 05/16/25 13:00 58 L 21 96 05/16/25 12:30 158/88 H 05/16/25 12:30 61 12 95 05/16/25 11:30 136/68 05/16/25 11:30 53 L 16 93 05/16/25 11:18 56 L 96 05/16/25 11:12 52 L 20 94 05/16/25 11:12 144/72 H 05/16/25 11:12 66 05/16/25 10:50 36.4 C 70 22 150/70 H 96 O2 Del Method 05/16/25 15:08 05/16/25 14:00 Room Air 05/16/25 13:00 05/16/25 12:30 05/16/25 12:30 05/16/25 11:30 05/16/25 11:30 05/16/25 11:18 Room Air 05/16/25 11:12 05/16/25 11:12 05/16/25 11:12 05/16/25 10:50 Room Air PG Care Time/CCT Total # of Minutes Spent Total Time Spent with Patient: Total time spent is greater than 50% in coordination of care (as documented) at patient's floor/unit and/or counseling patient: Coding Level of Care Code 15982 INT INP/OBS CARE 3/75MIN Diagnoses Diabetes E11.9 Abdominal pain R10.9
[2025-05-16] MEDS ORDERED: GLUCAGON FOR INJ 1 MG VIAL SQ PRN (16:23)
[2025-05-16] MEDS ORDERED: DEXTROSE 50% 50 ML SYRINGE IV PRN (16:23)
[2025-05-16] MEDS ORDERED: PHARMACY GLYCEMIC MGMT CONSULT PRN (16:23)
[2025-05-16] MEDS ORDERED: GLUCOSE 40% GEL 15 GM TUBE PO PRN (16:23)
[2025-05-16] MEDS ORDERED: CARBOHYDRATES FOR HYPOGLYCEMIA PO PRN (16:23)
[2025-05-16] MEDS ORDERED: ONDANSETRON INJ 2 MG/ML 2 ML VIAL IV PRN (16:23)
[2025-05-16] MEDS ORDERED: GLUCOSE 10 TAB/TUBE PO PRN (16:23)
--- NOTE | 2025-05-16 16:47 | Pharmacy Report ---
Pharmacy Glycemic Short Note 2 - Date of Service May 16, 2025 - Glycemic Short BSG Results (Last 24 hours): 05/16/25 05/16/25 11:07 13:10 Glucose 361 H* POC Glucose 251 H OUTPATIENT ANTIDIABETIC REGIMEN: * N/A ASSESSMENT: * 49 year old admitted with abdominal pain. Pharmacy consulted for glycemic management. BSGs >300 on admission. Per provider notes, hx of DM2 however not currently on any agents outpatient for this. Had previously been on mounjaro but discontinued as patient did not want to give himself injections. A1c ordered for tomorrow AM. * Patient NPO currently - will start novolog SSI for now. Will consider adding on low dose basal if BSGs remain >200 with next check. PLAN FOR INPATIENT GLYCEMIC CONTROL: * Hold outpatient oral diabetes medications * Basal insulin * Lantus 0-15 units x 1 * Bolus insulin * NovoLog per scale ACHS or Q6hrs while NPO * Goal Range: Low 110 mg/dL - High 140 mg/dL * Correction Factor: 25 mg/dL/unit * Nutritional / Prandial insulin per carb ratio of 1 unit per 8 grams CHO consumed
[2025-05-16] MEDS: PLASMA-LYTE A 1,000 ML IV SCH (17:58)
[2025-05-16] MEDS: INSULIN ASPART PER UNIT CHARGE SC SCH (18:33)
[2025-05-16] MEDS: DICYCLOMINE HCL 20 MG TAB PO PRN (19:48)
[2025-05-16] MEDS: FAMOTIDINE 40 MG TABLET PO SCH (20:42)
[2025-05-17 06:02] LABS: Hematocrit (blood only) 38.1 % (42.0-52.0); Hemoglobin 13.0 g/dl (14.0-18.0); Immature Granulocytes # (auto) 0.03 K/uL (0.01-0.20); Immature Granulocytes % (auto) 0.4 %; Mean Corpuscular Hemoglobin 29.7 pg (25.0-34.0); Mean Corpuscular Volume 87.2 fL (80.0-100.0); Platelet Count 257 K/uL (130-400); RDW Standard Deviation 41.9 fL (36.4-46.3); Red Blood Count 4.37 M/uL (4.70-6.10); White Blood Count 7.31 K/ul (4.8-10.8)
[2025-05-17 06:18] LABS: Anion Gap 7.0 (3-11); Blood Urea Nitrogen 14.0 mg/dl (6-23); Calcium 8.5 mg/dl (8.6-10.3); Carbon Dioxide 26.0 mmol/L (21-32); Chloride 104.0 mmol/L (98-107); Creatinine Clr Calc Pharmacy 93.2 ml/min; Glucose 179.0 mg/dl (70-99(Fasting)); Magnesium 2.0 mg/dl (1.7-2.4); Potassium 3.9 mmol/L (3.5-5.1); Sodium 137.0 mmol/L (136-145)
[2025-05-17 08:10] LABS: Hemoglobin A1C 9.9 % (4.5-5.6)
[2025-05-17] MEDS: ENOXAPARIN INJ 40 MG/0.4 ML SYR SQ SCH (09:35)
[2025-05-17] MEDS: POLYETHYLENE (MIRALAX) 17 GM PACK PO SCH (09:55)
--- NOTE | 2025-05-17 12:38 | Hospitalist Progress Note ---
Date of Service May 17, 2025 Assessment & Plan (1) Diabetes: (2) Abdominal pain: Plan This is a 49 year old gentleman with past medical history of Diabetes who presented to the ED on 05/16 with a chief complaint of abdominal pain & constipation. #Constipation/abdominal pain Has hx of abdominal surgery, concern for adhesions, no overt obstruction CTAP negative s/p Bisacodyl MI on 05/16 w/ no BM after 238gm Miralax started 05/17 Sennokot S 2 tabs added HS Monitor for BM's, can add additional 238gm of Miralax possibly 05/18 if no BM #DM II Was on Monjaro outpatient but recently stopped A1c 9.9% --> will require home regimen on dc but does not want him to be discharged on metformin. Consider [facility] following to aide w/ management. #AIME Continue CPAP #Bradycardia asymptomatic consider outpatient cardiac monitoring on dc. #RLS- cont ropinirole #DVT ppx: lovenox #Code status: full code Updated at bedside 05/17. Hopeful discharge home 05/18 Admission and Anticipated Discharge Date Admission Date: May 16, 2025 Supervising Physician Co-Signing Physician Notes The patient was not seen by me. The chart was reviewed. Case discussed with ALANA Dominguez. Agree with assessment and plan Subjective Nilson seen and examined this morning with his at bedside. He reports he has not had a bowel movement thus far. States that at home they were keeping track of his BM's but haven't in the last 2 months. Over that time he has been going multiple days, up to 1 week without a BM. Physical Exam Constitutional: WD/WN, vitals as above Eyes: PERRL, conjunctivae normal, anicteric sclerae Respiratory: normal respiratory effort Gastrointestinal (Abdomen): +BS, generalized tenderness to palpation . Neurologic: PERRL, EOMI, accommodation nl, no face palsy, no dysarthria Psychiatric: A+Ox3, euthymic affect Results & Data Results & Data Vital Signs (Past 12 Hours) Vital Signs Temp Pulse Pulse Resp BP Pulse Ox O2 Del Method 05/17/25 11:15 36.6 C 55 L 18 130/77 97 Room Air 05/17/25 08:07 36.6 C 50 L 18 124/73 97 Room Air 05/17/25 04:22 63 08/18/25 04:19 36.3 C L 50 L 18 105/66 97 Room Air PG Care Time/CCT Total # of Minutes Spent Total Time Spent with Patient: Total time spent is greater than 50% in coordination of care (as documented) at patient's floor/unit and/or counseling patient: Coding Level of Care Code 07896 SUB INP/OBS CARE 2/35MIN Diagnoses Diabetes E11.9 Abdominal pain R10.9
[2025-05-17] MEDS: ALBUMIN HUMAN 25% 12.5 GM/50 ML VIAL IV ONE (14:08)
[2025-05-17] MEDS: DOCUSATE SODIUM/SENNA 50/8.6MG TAB PO SCH (20:15)
[2025-05-18] MEDS ORDERED: Nursing to Pharmacy Communication SCH (01:00)
[2025-05-18 06:39] LABS: Hematocrit (blood only) 39.0 % (42.0-52.0); Hemoglobin 13.6 g/dl (14.0-18.0); Mean Corpuscular Hemoglobin 30.4 pg (25.0-34.0); Mean Corpuscular Volume 87.2 fL (80.0-100.0); Platelet Count 273 K/uL (130-400); RDW Standard Deviation 42.5 fL (36.4-46.3); Red Blood Count 4.47 M/uL (4.70-6.10); White Blood Count 7.01 K/ul (4.8-10.8)
[2025-05-18 06:57] LABS: Anion Gap 6.0 (3-11); Blood Urea Nitrogen 9.0 mg/dl (6-23); Calcium 8.7 mg/dl (8.6-10.3); Carbon Dioxide 29.0 mmol/L (21-32); Chloride 104.0 mmol/L (98-107); Creatinine Clr Calc Pharmacy 86.1 ml/min; Glucose 151.0 mg/dl (70-99(Fasting)); Magnesium 2.3 mg/dl (1.7-2.4); Potassium 4.2 mmol/L (3.5-5.1); Sodium 139.0 mmol/L (136-145)
[2025-05-18 07:21] VITALS: BP 128/75; PULSE 56; RESP 20; TEMP 97.3; O2SAT 97
[2025-05-18] MEDS: INSULIN ASPART PER UNIT CHARGE SC SCH (07:43)
--- NOTE | 2025-05-18 09:46 | Discharge Summary ---
Discharge Summary Date of Service May 18, 2025 Principal Dx & Hospital Course #1 = Principal Diagnosis (1) Diabetes: (2) Abdominal pain: Plan This is a 49 year old gentleman with past medical history of Diabetes who presented to the ED on 05/16 with a chief complaint of abdominal pain & constipation. #Constipation/abdominal pain Has hx of abdominal surgery, concern for adhesions, no overt obstruction CTAP negative 238gm Miralax + 2 Sennokot S tablets with multiple BM's followed w/ relief of abdominal pain. Advised to continue bowel regimen at home --> options include 1 capful Miralax daily vs 2 Sennokot S tablets daily. Discussed w/ patient. #DM II Was on Monjaro outpatient but recently stopped A1c 9.9% --> does not want patient on metformin sent home on Sepuvia w/ recommendations to follow closely up w/ his PCP. #AIME Continue CPAP #Bradycardia asymptomatic consider outpatient cardiac monitoring on dc. #RLS- cont ropinirole discharged home 05/18 Admission HPI Per Admitting Provider 49 yr old M with PMHx of DM II, diverticulitis s/p perforation s/p bowel resection (8-10 yrs ago) presents to [facility] on 05/16/25 for the evaluation of 2 weeks of abdominal pain. Pain started gradually and over the past 3 days, it became worse. His baseline BM is q3 days. However, recently, he has been having BMs once a week and stools are small. His last BM was yesterday. His appetite is also significantly low. Due to his pain being uncontrolled today, pt's brought him to the ED. Aside from his abdominal pain, nausea, he denies any other symptoms. Of note, he is diagnosed with DM II. Pt's does not want him to be taking Metformin due to side effects and complications (per people she knows). He was placed on Mounjaro. He took it for about 2 months and then stopped because he did not want to give himself an injection. Pt is also not diet compliant. He is noted to have bradycardia into the 40s and oxygen saturations into the 70s - 80s while he is sleeping. Per , he snores so much and is on CPAP, which their daughter is bringing in. Discharge Exam Constitutional WD/WN, vitals as above Eyes PERRL, conjunctivae normal, anicteric sclerae Respiratory normal respiratory effort Gastrointestinal (Abdomen) normal bowel sounds, soft, nontender, no hepatosplenomegaly Neurologic PERRL, EOMI, accommodation nl, no face palsy, no dysarthria Psychiatric A+Ox3, euthymic affect Discharge Plan Discharge Items Patient Disposition: Home - Self-Care Reason For Visit: ABDOMINAL PAIN Discharge Diagnosis: Constipation, Type 2 Diabetes Condition on Discharge: Fair Activity: Resume your previous activity Non-emergency contact: Primary Care Provider Call non-emergency contact if: you have any medication questions and your symptoms worsen Follow-up/Referrals: Shaylee Robertson MD [Resident] - 05/25/25 8:25 am (Dr. Perry did not have any available appts. ) Diet: Carb Consistent or DM2 Addtl Attending Provider Instructions: Mr. Paz, You were recently hospitalized for abdominal pain. You were found to be constipated and were given laxatives to help you have bowel movements. Your abdominal pain improved prior to discharge. Please see recommendations below regarding your discharge. You should be on a daily bowel regimen. Options for this include 1 capful of Miralax daily OR 2 tablets of SennaS. Please ensure you are drinking an adequate amount of water daily. A medication called Keyla has been sent in for management of your diabetes. This will be 100mg once daily. Please follow up very closely with your PCP for further management. Your heart rate has been mildly low in the 50s-60s range. Ideally a normal pulse is 60-100. Fortantely you did not experience symptoms but this should be followed up with your PCP. You may require a monitoring manager in the outpatient setting to continue to monitor. The remainder of your outpatient medications may be resumed on discharge. Best of luck! Aracely Landis PA-C Pending Studies at Discharge: No Stand-Alone Forms: My [employer], Smoking Cessation Medications and DC Order Prescriptions: New sitagliptin 100 mg tablet 100 mg PO DAILY Qty: 30 0RF Continued ropinirole 3 mg tablet 3 mg PO HS famotidine 40 mg tablet 40 mg PO BID Men's Multivitamin 1 tab PO DAILY Patient Comments: 05/16- OTC unknown dose Discharge Orders: Discharge Order (Routine); Ordered 05/18/25 Ordered By: Aracely Null/Other Patient Handouts: High Blood Sugar (Hyperglycemia), Managing Type 2 Diabetes, Diabetes: Meal Planning Admission Data Admit Date/Time: 05/16/25 15:26 Attending Provider: Nilson Fairbanks Admit Provider: Cynthia Turner Primary Care Provider: Fam Perry Other Providers: Yuriy Robertson Other Interventions: Discharge Summary Assessment (RN) Last Done: 05/18/25 10:10 Hospital Stay Data Consultations 05/16/25 13:29 ED Decision to Admit Stat Diagnostic Imagining Performed 05/16/25 10:58 CT abd pelvis IV con only Stat Pending Results Patient Have Any Pending Studies at Discharge: No Discharge Instructions Given to Patient (Per Discharging Provider) Mr. Paz, Jason were recently hospitalized for abdominal pain. You were found to be constipated and were given laxatives to help you have bowel movements. Your abdominal pain improved prior to discharge. Please see recommendations below regarding your discharge. You should be on a daily bowel regimen. Options for this include 1 capful of Miralax daily OR 2 tablets of SennaS. Please ensure you are drinking an adequate amount of water daily. A medication called Mihirva has been sent in for management of your diabetes. This will be 100mg once daily. Please follow up very closely with your PCP for further management. Your heart rate has been mildly low in the 50s-60s range. Ideally a normal pulse is 60-100. Fortantely you did not experience symptoms but this should be followed up with your PCP. You may require a monitoring manager in the outpatient setting to continue to monitor. The remainder of your outpatient medications may be resumed on discharge. Best of luck! Aracely Landis PA-C Supervising Physician Co-Signing Physician Notes The patient was not seen by me. The chart was reviewed. Case discussed with ALANA Dominguez. Agree with assessment and plan Total Time Total Time Spent Total Time Spent (In Minutes): 45 Total Time Includes: Examination of the Patient, Discharge Planning and Medication Reconciliation Coding Level of Care Code 72143 INP/OBS DISCH >30 MIN Diagnoses Diabetes E11.9 Abdominal pain R10.9
[2025-05-18] MEDS ORDERED: LANTUS PER UNIT CHARGE SC ONE (11:00)
[2025-05-19] MEDS ORDERED: LANTUS PER UNIT CHARGE SC SCH (09:00)
--- NOTE | 2025-05-21 13:01 | Electrocardiogram Report ---
Test Reason : Blood Pressure : */* mmHG Vent. Rate : 59 BPM Atrial Rate : 59 BPM P-R Int : 180 ms QRS Dur : 98 ms QT Int : 424 ms P-R-T Axes : 28 -9 13 degrees QTcB Int : 419 ms Sinus bradycardia Cannot rule out Inferior infarct , age undetermined Cannot rule out Anterior infarct (cited on or before 15-Oct-2024) Abnormal ECG When compared with ECG of 15-Oct-2024 21:36, Nonspecific T wave abnormality no longer evident in Anterior leads Confirmed by Jesus Manuel Escalante ([id number]) on 05/21/2025 1:01:14 PM Referred By: REFERRED SELF Confirmed By: Jesus Manuel Escalante
== END 2025-05-18 12:07 | disposition home or self-care (01) | DRG 392 ==
LOC: ED 10:38 → SUATTDRO 15:26 → 2E 15:26

== ENCOUNTER 2025-07-20 12:52 | Inpatient (IN) ==
[2025-07-20] MEDS: ASPIRIN CHEW 324 MG PO STA (13:21)
--- NOTE | 2025-07-20 13:24 | Emergency Department Note ---
Impression & Plan Chest pain, exertional, Abnormal cardiovascular stress test ED Provider Note NAME: RAMON BORGES AGE: 49 SEX: M : 1975 ARRIVES VIA: Walk-In INFORMANT: Patient, ED PROVIDER(S): Felipe Bell DO CHIEF COMPLAINT: Chest pain HPI: The patient is a 49-year-old male who presented to the emergency department for an evaluation of chest pain. The patient states he has been having exertional chest pain over the course of the last several months. He did see his family doctor and was scheduled for a stress test. The patient had a stress test today which was abnormal. The patient was sent to the emergency department for further evaluation. The patient states his pain began today while he was on the treadmill. He states his pain is significantly improved since that time. He states he has family history for heart problems requiring pacemaker but he does not admit to any family history of early coronary artery disease. He does have a history of diabetes. ROS: See above HPI for pertinent positives & negatives. A total of 10 systems reviewed and were otherwise negative. PAST MEDICAL HISTORY: See Below PAST SURGICAL HISTORY: See Below FAMILY HISTORY: See Below SOCIAL HISTORY: See Below HOME MEDICATIONS: See Below ALLERGIES: See Below VITALS: See Below PHYSICAL EXAMINATION: GENERAL: Patient is awake alert in no acute distress patient is resting comfortably and showing no signs of anxiety EYES: The conjunctivae are clear. The pupils are round and reactive. EARS, NOSE, MOUTH AND THROAT: The nose is without any evidence of any deformity. NECK: The neck is nontender and supple. RESPIRATORY: Normal respiratory effort is noted there is no evidence of wheezing rhonchi or rales CARDIOVASCULAR: Regular rate and rhythm noted there no murmurs rubs or gallops normal S1 normal S2. GASTROINTESTINAL: The abdomen is soft. Abdomen is nontender. MUSCULOSKELETAL/EXTREMITIES: There is no evidence of gross deformity full range of motion is noted in the hips and shoulders. SKIN: There is no obvious evidence of any rash. There are no petechiae, pallor or cyanosis noted. NEUROLOGIC: Patient is awake alert and oriented x3. MEDICAL DECISION MAKING: The patient is a 49-year-old male who has risk factors for coronary artery disease who presented to the emergency department for an evaluation of chest pain. The patient has been seeing his family doctor. He was scheduled for a stress test. The patient had abnormalities on his stress test which prompted him to come to the emergency department for further evaluation. At this time the patient is not having any chest discomfort. The patient did initially have some chest pain on arrival. EKG showed no acute ischemic changes and initial cardiac biomarker was negative. The patient was treated with aspirin in the emergency department. [facility]. Likely he will be a good candidate for inpatient management as well as likely cardiac catheterization following. Triage Nursing notes reviewed. Prior medical records reviewed Vital Signs: reviewed and remarkable for elevated blood pressure. Differential diagnosis: Cardiac ischemia, aortic dissection, pulmonary embolism, pneumothorax, pneumonia, pericarditis, myocarditis, esophageal rupture, GERD, cholecystitis, pancreatitis, musculoskeletal, as well as other pathologies. ER treatment provided: See below Diagnostics interpreted by me: ECG: EKG was obtained in the emergency department. My interpretation is normal sinus rhythm at 67 bpm. There is no ectopy. Nonspecific ST abnormalities were noted especially in the apical and inferior leads. This was compared to a tracing from July 20, 2025 that was done earlier today. No significant changes were noted. Cardiac Monitoring: An order was placed for continuous cardiac monitoring. The monitor shows a rate of 70 bpm with sinus rhythm. Laboratory studies: As stated above and show below. Imaging studies: See below. Radiographic imaging was reviewed by myself Consultation(s): Dr. Fairbanks, [facility]. Past Med/Surg History Problem List (Updated 07/20/25 @ 15:06 by Felipe Bell DO) Abnormal cardiovascular stress test (Acute) Chest pain, exertional (Acute) Acute hyperglycemia (Acute) Dehydration (Acute) Elevated lactic acid level (Acute) Diffuse abdominal pain (Acute) Diabetes Pain of right arm (Acute) Encounter for pre-operative examination COVID-19 (Acute) Bilateral lower extremity pain (Acute) Ambulatory dysfunction (Acute) Medical History Anxiety Allergic rhinitis Lumbar disc herniation with radiculopathy Restless leg syndrome Diverticulitis Surgical History History of lumbosacral spine surgery History of ankle surgery History of bowel resection History of cervical spinal arthrodesis Family History Other No significant family history Social History Smoking Status: Never smoker Second Hand Exposure: No; Do You Dip or Chew Tobacco: No; Hx Alcohol Use: No Hx Substance Use: No Preferred Language: Kinyarwanda Communication Ability: Effective Chief Credit Officer Required: No Beliefs That Will Affect Care: None marital status: Current Living Situation: Spouse current occupational status: unemployed Feels Safe at Home: Yes Assistive Devices: None Allergies Allergies Allergy/AdvReac Type Severity Reaction Status Date / Time Penicillins Allergy Unknown Unknown Verified 02/03/23 20:23 fentanyl AdvReac Intermediate Vomiting Verified 02/03/23 20:23 Home Meds Home Medications Medication Instructions Recorded Confirmed ropinirole 3 mg tablet 3 mg PO HS 10/14/21 05/16/25 famotidine 40 mg tablet 40 mg PO BID 02/03/23 05/16/25 Men's Multivitamin 1 tab PO DAILY 05/16/25 05/16/25 Previous Rx's Medication Instructions Recorded sitagliptin 100 mg tablet 100 mg PO DAILY #30 tabs 05/18/25 Results & Data (ED) Vital Signs Vital Signs - 24 hr 07/20/25 13:00 07/20/25 13:00 07/20/25 13:10 Temperature 36.6 C Temperature Source Temporal Artery Scan Pulse Rate 72 83 Pulse Rate [Right Finger] 72 Pulse Rhythm [Right Finger] Regular Pulse Strength [Right Finger] Normal Respiratory Rate 22 22 20 Respiratory Effort / Characteristics Non-Labored Spontaneous Respiratory Depth Normal Normal Respiratory Pattern Regular Blood Pressure 153/88 H Blood Pressure [Right Arm] 139/88 Blood Pressure Mean 109 Blood Pressure Mean [Right Arm] 105 Blood Pressure Position [Right Arm] Sitting Pulse Oximetry 96 96 96 Oxygen Delivery Method Room Air Room Air Sepsis Recent Fever Within 48 Hours No Sepsis New/Unexplained Change in Mental Status N/A Sepsis Action Taken by Nursing No Action Required 07/20/25 13:30 Temperature Temperature Source Pulse Rate 70 Pulse Rate [Right Finger] Pulse Rhythm [Right Finger] Pulse Strength [Right Finger] Respiratory Rate Respiratory Effort / Characteristics Respiratory Depth Respiratory Pattern Blood Pressure Blood Pressure [Right Arm] Blood Pressure Mean Blood Pressure Mean [Right Arm] Blood Pressure Position [Right Arm] Pulse Oximetry Oxygen Delivery Method Sepsis Recent Fever Within 48 Hours Sepsis New/Unexplained Change in Mental Status Sepsis Action Taken by Longterm Medications Current Medication List: was personally reviewed by me Laboratory Data Attestation: I reviewed the patient's lab results. 07/20/25 13:25 07/20/25 13:25 Lab Results 07/20/25 07/20/25 Range/Units 13:25 13:58 WBC 7.21 (4.8-10.8) K/ul RBC 5.11 (4.70-6.10) M/uL Hgb 14.8 (14.0-18.0) g/dl Hct 43.8 (42.0-52.0) % MCV 85.7 (80.0-100.0) fL MCH 29.0 (25.0-34.0) pg MCHC 33.8 (32.0-36.0) g/dL RDW Std Deviation 40.9 (36.4-46.3) fL RDW Coeff of Alexander 13.1 (11.5-14.5) % Plt Count 290 (130-400) K/uL MPV 8.9 L (9.4-12.4) fL Immature Gran % (Auto) 0.6 % Neut % (Auto) 67.8 % Lymph % (Auto) 20.0 % [place] % (Auto) 6.2 % Eos % (Auto) 4.7 % Baso % (Auto) 0.7 % Neut # (Auto) 4.89 (1.40-6.50) K/uL Lymph # (Auto) 1.44 (1.20-3.40) K/uL [place] # (Auto) 0.45 (0.11-0.59) K/uL Eos # (Auto) 0.34 (0.00-0.50) K/uL Baso # (Auto) 0.05 (0.00-0.20) K/uL Immature Gran # (Auto) 0.04 (0.01-0.20) K/uL PT 10.8 (9.0-12.0) Seconds INR 1.0 (0.9-1.1) APTT 24 (21-31) Seconds PTT Ratio 0.9 Sodium 135 L (136-145) mmol/L Potassium 4.1 (3.5-5.1) mmol/L Chloride 99 (98-107) mmol/L Carbon Dioxide 28 (21-32) mmol/L Anion Gap 8 (3-11) BUN 17 (6-23) mg/dl Creatinine 1.18 (0.6-1.4) mg/dl Est Cr Clr Drug Dosing 82.5 ml/min eGFR 74.71 BUN/Creatinine Ratio 14.4 (10-20) Glucose 191 H (70-99(Fasting)) mg/dl Calcium 11.0 H (8.6-10.3) mg/dl Total Bilirubin 0.5 (0.2-1.0) mg/dl AST 26 (13-39) U/L ALT 43 (7-52) U/L Alkaline Phosphatase 61 (34-104) U/L Troponin I High Sens 7.0 (0-20) pg/ml Total Protein 7.8 (6.0-8.3) gm/dl Albumin 4.6 (3.4-5.0) gm/dl Globulin 3.2 (2.5-4.0) gm/dl Albumin/Globulin Ratio 1.4 (0.9-2) Lipase 18 (11-82) U/L Administered Medications Discontinued Medications Aspirin (Aspirin Chew 324 Mg) 324 mg PO NOW STA Stop: 07/20/25 13:19 Last Admin: 07/20/25 13:21 Dose: 324 mg Documented By: ILEANA Imaging Data Attestation: I personally reviewed and interpreted this imaging study as follows: My Impression: 1 view chest x-ray was obtained in the emergency department. My interpretation is no free air or definite infiltrate, final report below. Radiologist's Impression: Chest X-Ray 07/20/25 13:00 XR chest 1V portable HISTORY: 49 years-old Male Chest pain, nonspecific COMPARISON: 05/25/2025 TECHNIQUE: AP view of the chest FINDINGS: Cardiomediastinal and hilar silhouettes are within normal limits. No pneumothorax, pleural effusion, airspace consolidation or pulmonary edema. No acute fracture. Partially imaged cervical spinal fusion hardware. IMPRESSION: No acute process. ACT 112: Negative or not required by law. The above report was generated using voice recognition software. It may contain grammatical, syntax or spelling errors. Electronically signed by: Johnny Aranda M.D. 07/20/2025 1:52 PM Discharge Plan Visit Data Chief Complaint: Referred by Doctor Stated Complaint: HEART CATH 07/21, REF BY DOC ED Provider: Felipe Bell Discharge Problem: Chest pain, exertional, Abnormal cardiovascular stress test Patient Disposition: Being Evaluated by Hospitalist Condition: Fair Forms Stand Alone Forms: My [facility] Prescriptions Prescriptions: No Action ropinirole 3 mg tablet 3 mg PO HS famotidine 40 mg tablet 40 mg PO BID Men's Multivitamin 1 tab PO DAILY Patient Comments: 05/16- OTC unknown dose sitagliptin 100 mg tablet 100 mg PO DAILY Qty: 30 0RF Referrals Referrals: Fam Perry DO [Primary Care Provider] -
[2025-07-20 13:43] LABS: Hematocrit (blood only) 43.8 % (42.0-52.0); Hemoglobin 14.8 g/dl (14.0-18.0); Immature Granulocytes # (auto) 0.04 K/uL (0.01-0.20); Immature Granulocytes % (auto) 0.6 %; Mean Corpuscular Hemoglobin 29.0 pg (25.0-34.0); Mean Corpuscular Volume 85.7 fL (80.0-100.0); Platelet Count 290 K/uL (130-400); RDW Standard Deviation 40.9 fL (36.4-46.3); Red Blood Count 5.11 M/uL (4.70-6.10); White Blood Count 7.21 K/ul (4.8-10.8)
--- NOTE | 2025-07-20 13:54 | XRay Report ---
XR chest 1V portable HISTORY: 49 years-old Male Chest pain, nonspecific COMPARISON: 05/25/2025 TECHNIQUE: AP view of the chest FINDINGS: Cardiomediastinal and hilar silhouettes are within normal limits. No pneumothorax, pleural effusion, airspace consolidation or pulmonary edema. No acute fracture. Partially imaged cervical spinal fusion hardware. IMPRESSION: No acute process. ACT 112: Negative or not required by law. The above report was generated using voice recognition software. It may contain grammatical, syntax o r spelling errors. Electronically signed by: Johnny Aranda M.D. 07/20/2025 1:52 PM
[2025-07-20 14:03] LABS: Alanine Aminotransferase 43.0 U/L (7-52); Albumin Globulin Ratio 1.4 (0.9-2); Albumin Level 4.6 gm/dl (3.4-5.0); Alkaline Phosphatase 61.0 U/L (34-104); Anion Gap 8.0 (3-11); Bilirubin,Total 0.5 mg/dl (0.2-1.0); Blood Urea Nitrogen 17.0 mg/dl (6-23); Calcium 11.0 mg/dl (8.6-10.3); Carbon Dioxide 28.0 mmol/L (21-32); Chloride 99.0 mmol/L (98-107); Creatinine Clr Calc Pharmacy 82.5 ml/min; Globulin 3.2 gm/dl (2.5-4.0); Glucose 191.0 mg/dl (70-99(Fasting)); Lipase 18.0 U/L (11-82); Potassium 4.1 mmol/L (3.5-5.1); Sodium 135.0 mmol/L (136-145); Total Protein 7.8 gm/dl (6.0-8.3)
[2025-07-20 14:52] LABS: INR 1.0 (0.9-1.1); Partial Thromboplastin Time 24 Seconds (21-31); Prothrombin Time 10.8 Seconds (9.0-12.0)
--- NOTE | 2025-07-20 15:32 | History & Physical Report ---
Date of Service July 20, 2025 Assessment & Plan (1) Chest pain, exertional: (2) Abnormal cardiovascular stress test: (3) Restless leg syndrome: (4) Type 2 diabetes mellitus: Plan 49 yo M with PMHx of T2DM, AIME on CPAP, HLD who presents to the hospital due to chest pain during treadmill stress test with abnormal EKG findings. #Unstable angina - Chest tightness after treadmill stress test, EKG during treadmill stress test showed ST elevation in V1-V3 - Cardio consult, plan for possible catheterization tomorrow, NPO at midnight - Trops wnl (5.4, 7.9) - CBC, BMP in AM #T2DM - Continue home Januvia - HgbA1C 9.9 (04/2025) - Repeat HgbA1C and lipid panel in AM #GERD - Continue home famotidine 40mg PO BID #Restless Leg Syndrome - Continue home ropinarole 3 mg PO HS Dispo: PCU tele Diet: Heart healthy/T2DM, NPO at midnight Code status: Full History of Present Illness Chief Complaint: chest pain Primary Care Provider: Fam Perry, DO 49 yo M with PMHx of T2DM, AIME on CPAP, HLD who presents to the hospital due to chest pain during treadmill stress test with abnormal EKG findings. Patient has had history of months of chest pain for which PCP had him do a stress test. During stress test today, patient felt dizzy. After the test was completed, patient reports he had intermittent, mid-chest, squeezing, localized chest pain. EKG showed ST elevation in leads V1-V3. Denies radiation of chest pain. Patient reports in addition to chest pain, he experienced tunnel vision and pre-syncopal feelings. Currently, reports heartburn but denies chest pain. States CP is mainly with exertion. Reports family history of bradycardia in father and brother - both of whom have pacemakers. Denies palpitations or SOB currently. Denies tobacco, alcohol, or illicit drug use. Allergies Allergy/AdvReac Type Severity Reaction Status Date / Time Penicillins Allergy Unknown Unknown Verified 02/03/23 20:23 fentanyl AdvReac Intermediate Vomiting Verified 02/03/23 20:23 Home Medications Medication Instructions Recorded Confirmed Type ropinirole 3 mg tablet 3 mg PO HS 10/14/21 07/20/25 History famotidine 40 mg tablet 40 mg PO BID 02/03/23 07/20/25 History sitagliptin phosphate 100 mg 100 mg PO DAILY 07/20/25 07/20/25 History tablet (Januvia) Past Med/Surg History Problem List (Updated 07/20/25 @ 17:58 by Otilia Polk DO) Type 2 diabetes mellitus Abnormal cardiovascular stress test (Acute) Chest pain, exertional (Acute) Acute hyperglycemia (Acute) Dehydration (Acute) Elevated lactic acid level (Acute) Diffuse abdominal pain (Acute) Diabetes Pain of right arm (Acute) Encounter for pre-operative examination COVID-19 (Acute) Bilateral lower extremity pain (Acute) Ambulatory dysfunction (Acute) Medical History Anxiety Allergic rhinitis Lumbar disc herniation with radiculopathy Restless leg syndrome Diverticulitis Surgical History History of lumbosacral spine surgery History of ankle surgery History of bowel resection History of cervical spinal arthrodesis Family History Other No significant family history Social History Smoking Status: Never smoker Second Hand Exposure: No; Do You Dip or Chew Tobacco: No; Hx Alcohol Use: No Hx Substance Use: No Preferred Language: Lithuanian Communication Ability: Effective 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 Required: No Beliefs That Will Affect Care: None marital status: Current Living Situation: Spouse current occupational status: unemployed Feels Safe at Home: Yes Assistive Devices: None Review of Systems Review of Systems: All systems reviewed & are unremarkable except as noted in HPI & below Physical Exam Constitutional: WD/WN, vitals as above Respiratory: normal respiratory effort, lungs clear to auscultation Cardiovascular: RRR, no murmur, no edema Gastrointestinal (Abdomen): normal bowel sounds, soft, nontender, no hepatosplenomegaly Musculoskeletal: Head/Neck/Chest: + abnormal inspection of chest wall and + abnormal palpation of chest wall (tender) Skin: no rashes, warm and dry Psychiatric: A+Ox3, euthymic affect Results & Data Results & Data Vital Signs (Past 12 Hours) Vital Signs Temp Pulse Pulse Resp BP BP Pulse Ox 07/20/25 15:00 56 L 18 136/85 98 10/21/25 13:30 70 07/20/25 13:10 36.6 C 83 20 153/88 H 96 07/20/25 13:00 72 22 96 07/20/25 13:00 72 22 139/88 96 O2 Del Method 07/20/25 15:00 Room Air 07/20/25 13:30 07/20/25 13:10 07/20/25 13:00 Room Air 07/20/25 13:00 Room Air Supervising Physician Co-Signing Physician Notes I personally examined the patient and verified all lam points of history and exam, discussed case, and agree with decision making with Dr Polk Sent for stress test out of concern for angina. Had chest pain and lightheadedness during stress test, apparently also with EKG changes V1 to 3. Symptoms have resolved. Sent here due to positive stress test/anticipated cath. Discussed secondary risk reduction/diabetes control/etc. as well. Vitals noted, in general he is awake and alert pleasant no distress. HEENT normocephalic atraumatic mucous membranes moist. Breathing unlabored no accessory muscle use good effort. Skin without rashes pallor or icterus. Neuro without focal deficits. Labs and diagnostics noted. Unstable anginanew/worsening chest pain and failed stress test. Symptom-free now, troponins normaladmit, n.p.o. after midnight, anticipate cast tomorrow. Discussed secondary risk reduction. Check lipids/A1c. Uncontrolled type 2 diabetesdiscussed lifestyle change/etc. Discussed why to care ("high sugars clogged arteries"). Await [id number] was 9.9. Low B12a few years agorecheck in a.m., supplement if low mild persistent hypercalcemiafirst noticed in April, again today. Check PTH, workup/manage further from there. otherwise as above Resident Activity Tracking Resident Involvement: Resident Care Provided Care Provided: Adult Hospital Medicine
[2025-07-20] MEDS ORDERED: ACETAMINOPHEN 325 MG TAB PO PRN ×2 (15:54→16:42)
[2025-07-20] MEDS: FAMOTIDINE 20MG IV PUSH 20 MG/5 ML SYR IV STA (15:59)
--- NOTE | 2025-07-20 17:47 | Billing Data ---
Date of Service July 20, 2025 Coding Level of Care Code 83545 INT INP/OBS CARE
[2025-07-20] MEDS: INSULIN ASPART PER UNIT CHARGE SC SCH (21:13)
[2025-07-20] MEDS: FAMOTIDINE 40 MG TABLET PO SCH (21:13)
[2025-07-21] MEDS ORDERED: Nursing to Pharmacy Communication SCH (02:00)
[2025-07-21] MEDS ORDERED: DEXTROSE 50% 50 ML SYRINGE IV PRN (02:15)
[2025-07-21] MEDS ORDERED: CARBOHYDRATES FOR HYPOGLYCEMIA PO PRN (02:15)
[2025-07-21] MEDS ORDERED: GLUCOSE 40% GEL 15 GM TUBE PO PRN (02:15)
[2025-07-21] MEDS ORDERED: GLUCOSE 10 TAB/TUBE PO PRN (02:15)
[2025-07-21] MEDS ORDERED: GLUCAGON FOR INJ 1 MG VIAL SQ PRN (02:15)
[2025-07-21 06:11] LABS: Hematocrit (blood only) 42.4 % (42.0-52.0); Hemoglobin 14.3 g/dl (14.0-18.0); Immature Granulocytes # (auto) 0.06 K/uL (0.01-0.20); Immature Granulocytes % (auto) 0.8 %; Mean Corpuscular Hemoglobin 28.8 pg (25.0-34.0); Mean Corpuscular Volume 85.5 fL (80.0-100.0); Platelet Count 281 K/uL (130-400); RDW Standard Deviation 41.1 fL (36.4-46.3); Red Blood Count 4.96 M/uL (4.70-6.10); White Blood Count 7.18 K/ul (4.8-10.8)
[2025-07-21] MEDS: INSULIN ASPART PER UNIT CHARGE SC SCH ×2 (06:13→20:17)
[2025-07-21 06:28] LABS: Anion Gap 10.0 (3-11); Blood Urea Nitrogen 22.0 mg/dl (6-23); Calcium 9.7 mg/dl (8.6-10.3); Carbon Dioxide 26.0 mmol/L (21-32); Chloride 99.0 mmol/L (98-107); Cholesterol 181.0 mg/dl (0-200); Creatinine Clr Calc Pharmacy 75.2 ml/min; Glucose 193.0 mg/dl (70-99(Fasting)); HDL Cholesterol 38.0 mg/dl; Potassium 4.2 mmol/L (3.5-5.1); Sodium 135.0 mmol/L (136-145); Triglycerides 339.0 mg/dl (0-150)
[2025-07-21 07:45] LABS: Hemoglobin A1C 8.9 % (4.5-5.6)
--- NOTE | 2025-07-21 09:31 | Hospitalist Progress Note ---
Date of Service July 21, 2025 Assessment & Plan (1) Chest pain, exertional: (2) Abnormal cardiovascular stress test: (3) Type 2 diabetes mellitus: Plan 49 yo M with PMHx of T2DM, AIME on CPAP, HLD who presents to the hospital due to chest pain during treadmill stress test with abnormal EKG findings. #Unstable angina - Chest tightness after treadmill stress test, EKG during treadmill stress test showed ST elevation in V1-V3 - Cardio consult, catheterization completed today - Trops wnl (5.4, 7.9) - CBC, BMP in AM #T2DM - Insulin protocol - HgbA1C 9.9 (04/2025) - Repeat HgbA1C 8.9, lipid panel shows elevated triglycerides and VLDL, counseled regarding the importance of lifestyle changes moving forward to decrease risk of [place]/other cardiac pathologies #GERD - Continue home famotidine 40mg PO BID #Restless Leg Syndrome - Continue home ropinarole 3 mg PO HS Dispo: PCU tele Diet: Heart healthy/T2DM Code status: Full Admission and Anticipated Discharge Date Admission Date: July 20, 2025 Supervising Physician Co-Signing Physician Notes I personally examined the patient and verified all lam points of history and exam, discussed case, and agree with decision making with Dr Polk Feels okay post cath. Still somewhat groggy.. Vitals noted, in general he is awake and alert pleasant no distress. HEENT normocephalic atraumatic mucous membranes moist. Breathing unlabored no accessory muscle use good effort. Skin without rashes pallor or icterus. Neuro without focal deficits. Labs and diagnostics noted. Unstable anginanew/worsening chest pain and failed stress test. Cath fortunately without major obstructive disease. Will want to discuss with cardiology regarding most possible etiology of failed stress test and symptomsI suspect the poor flow probably is real for distal disease. Probably if the stress test showed ST depressions that would fit with this, and med management would be directed as such. If the stress test showed ST elevations, then vasospasm would be more plausible. Uncontrolled type 2 diabetesdiscussed lifestyle change/etc. Discussed why to care ("high sugars clogged arteries"). A1c noted8.9 Low B12 supplement p.o., recheck in a few months. Parenteral supplementation if still low. mild persistent hypercalcemiafirst noticed in April, Again 10/21. However, both calcium and PTH were normal today. otherwise as above Subjective Patient slept well last night. States he had some L sided chest tightness about 30 minutes before I came in that lasted 5-10 minutes and then resolved. Denies SOB, AP, N/V, dizziness, LH. He used his home CPAP last night when sleeping. Review of Systems Review of Systems: All systems reviewed & are unremarkable except as noted in HPI & below Physical Exam Constitutional: WD/WN, vitals as above Respiratory: normal respiratory effort, lungs clear to auscultation Cardiovascular: RRR, no murmur, no edema Chest (Breasts): Chest: normal inspection of chest Additional Comments: no tenderness to palpation Gastrointestinal (Abdomen): normal bowel sounds, soft, nontender, no hepatosplenomegaly Skin: no rashes, warm and dry Psychiatric: A+Ox3, euthymic affect Results & Data Results & Data Vital Signs (Past 12 Hours) Vital Signs Temp Pulse Pulse Resp BP Pulse Ox O2 Del Method 07/21/25 07:50 36.8 C 58 L 16 116/65 93 Room Air 07/21/25 02:36 36.5 C 58 L 20 135/82 95 BiPAP 07/21/25 00:54 67 07/20/25 23:41 36.9 C 65 18 139/79 95 Room Air Resident Activity Tracking Resident Involvement: Resident Care Provided Care Provided: Adult Hospital Medicine
--- NOTE | 2025-07-21 09:52 | Cardiology Consultation ---
Date of Consultation July 21, 2025 Assessment & Plan (1) Chest pain, exertional: (2) Abnormal cardiovascular stress test: (3) Type 2 diabetes mellitus: (4) Hypercholesterolemia: Plan Will continue on aspirin at this time. His lipids show an total cholesterol which is not severely elevated his LDL is certainly higher than what our goal would be given diabetes and if he has coronary disease. His triglycerides were in the 300 range which goes along with his uncontrolled sugar. Depending on the results of the cath further recommendations will follow. I will follow-up with him after the catheterization is performed. Thank you for allowing me to participate in his care. History of Present Illness Attending Physician: Chung Aquino, DO History of Present Illness Mr. Paz was sent in from the office yesterday due to an abnormal stress test with EKG changes ST depression in leads V1 and V2 along with an increasing anginal pattern. He has been diabetic for the last year and his diabetes has not been well-controlled. His most recent A1c was just over 9. Because of the abnormal stress test and has escalation of symptoms to with minimal activity was recommended that he be admitted for further cardiac evaluation including catheterization. The procedure was discussed with him including all risks and benefits and he agrees to proceed with the planned test. Dr. Hilario has him on the schedule for later today for the catheterization. Depending on the results of the Further recommendations will follow. Allergies Allergy/AdvReac Type Severity Reaction Status Date / Time Penicillins Allergy Unknown Unknown Verified 07/21/25 13:57 fentanyl AdvReac Intermediate Vomiting Verified 07/21/25 13:57 Home Medications Medication Instructions Recorded Confirmed Type ropinirole 3 mg tablet 3 mg PO HS 10/14/21 07/20/25 History famotidine 40 mg tablet 40 mg PO BID 02/03/23 07/20/25 History sitagliptin phosphate 100 mg 100 mg PO DAILY 07/20/25 07/20/25 History tablet (Januvia) cyanocobalamin (vitamin B-12) 1,000 mcg PO DAILY #30 tabs 07/21/25 Rx 1,000 mcg tablet amlodipine 2.5 mg tablet 2.5 mg PO DAILY 30 days #30 tabs 07/22/25 Rx aspirin 81 mg tablet 81 mg PO DAILY 30 days #30 tabs 07/22/25 Rx atorvastatin 40 mg tablet 40 mg PO DAILY 30 days #30 tabs 07/22/25 Rx lisinopril 10 mg tablet 10 mg PO DAILY 30 days #30 tabs 07/22/25 Rx nitroglycerin 0.4 mg sublingual 0.4 mg sublingual Q5M PRN chest 07/22/25 Rx tablet pain 30 days #30 tabs Patient History Medical History Anxiety Allergic rhinitis Lumbar disc herniation with radiculopathy Restless leg syndrome Diverticulitis Surgical History History of lumbosacral spine surgery History of ankle surgery History of bowel resection History of cervical spinal arthrodesis Family History Other No significant family history Social History Smoking Status: Never smoker Second Hand Exposure: No; Do You Dip or Chew Tobacco: No; Hx Alcohol Use: No Hx Substance Use: No Preferred Language: Latvian Communication Ability: Effective Mft Required: No Beliefs That Will Affect Care: None marital status: Current Living Situation: Spouse current occupational status: unemployed Feels Safe at Home: Yes Assistive Devices: None Review of Systems Review of Systems: All systems reviewed & are unremarkable except as noted in HPI & below Physical Exam Physical Exam: Awake alert oriented no distress Respiratory: normal respiratory effort, lungs clear to auscultation Cardiovascular: RRR, no murmur, no edema Results & Data Vital Signs (Past 12 Hours) Vital Signs Temp Pulse Pulse Resp BP Pulse Ox O2 Del Method 07/21/25 09:33 61 07/21/25 07:50 36.8 C 58 L 16 116/65 93 Room Air 07/21/25 02:36 36.5 C 58 L 20 135/82 95 BiPAP 07/21/25 00:54 67 07/20/25 23:41 36.9 C 65 18 139/79 95 Room Air Laboratory Results Abnormal lab results 07/20/25 07/20/25 07/21/25 Range/Units 13:25 20:37 05:26 MPV 8.9 L 9.2 L (9.4-12.4) fL Eos # (Auto) 0.51 H (0.00-0.50) K/uL Sodium 135 L 135 L (136-145) mmol/L Glucose 191 H 193 H (70-99(Fasting)) mg/dl POC Glucose 203 H (70-99) mg/dl Hemoglobin A1c 8.9 H (4.5-5.6) % Calcium 11.0 H (8.6-10.3) mg/dl Triglycerides 339 H (0-150) mg/dl VLDL Cholesterol, Calc 68 H (0-30) mg/dl 07/21/25 Range/Units 06:10 MPV (9.4-12.4) fL Eos # (Auto) (0.00-0.50) K/uL Sodium (136-145) mmol/L Glucose (70-99(Fasting)) mg/dl POC Glucose 194 H (70-99) mg/dl Hemoglobin A1c (4.5-5.6) % Calcium (8.6-10.3) mg/dl Triglycerides (0-150) mg/dl VLDL Cholesterol, Calc (0-30) mg/dl ECG Additional Comments: He is current EKG while pain-free shows normal sinus rhythm there are nonspecific ST-T wave changes
[2025-07-21] MEDS: niCARdipine 2,000 MCG/20 ML SYR ONE (16:41)
[2025-07-21] MEDS: HEPARIN (PORCINE) 1000 UNIT/ML 10 ML (CATH LAB USE ONLY) ONE (17:08)
[2025-07-21] MEDS: MIDAZOLAM HCL 1 MG/ML 2ML VIAL ONE (17:09)
[2025-07-21] MEDS: OPTIRAY 350 ONE (17:09)
--- NOTE | 2025-07-21 17:46 | Post Anesthesia Assessment ---
Date of Service July 21, 2025 Post Sedation Assessment Vital Signs Temp Pulse Pulse Resp BP Pulse Ox O2 Del Method 07/21/25 17:31 98.2 F 54 L 18 123/79 95 Room Air 07/21/25 13:45 67 18 139/84 99 Room Air 07/21/25 11:31 97.7 F 72 18 137/74 94 Room Air 07/21/25 09:33 61 07/21/25 07:50 98.2 F 58 L 16 116/65 93 Room Air 07/21/25 02:36 97.7 F 58 L 20 135/82 95 BiPAP 07/21/25 00:54 67 07/20/25 23:41 98.4 F 65 18 139/79 95 Room Air 07/20/25 19:33 98.6 F 74 20 137/86 95 Room Air 07/20/25 19:30 72 07/20/25 18:29 98.1 F 67 22 122/63 99 Room Air 07/20/25 18:10 65 Recovery Score Activity: Moves 4 extremities Respiration: Deep Breath/Cough Circulation: +/-20% PreAnes Value Consciousness: Fully Awake Oxygen Saturation: O2 needed for >90% Discharge Sedation Level of Care: Fast Track Phase II
--- NOTE | 2025-07-21 17:51 | Cardiac Catheterization ---
[facility] Data: Record Searcher Cardiac Status Clinical evaluation leading to the procedure CAD Presenation: Positive Stress Test Diagnostic Physicians Name: Omkar Hilario MD Closure Device Recommendations: Medical Therapy and/or Counseling Cardiac Cath Procedure Full Procedure Date July 21, 2025 Pre-Procedure Diagnosis Pre-Procedure Diagnosis: Positive Stress Test AUC Score AUC Score: 7 Post-Procedure Diagnosis Post-Procedure Diagnosis: Normal Coronary Arteries and Normal Intracardiac Pressures Procedure(s) Performed Procedure(s) Performed: Coronary Angiography and Left Heart Cath [employer] Omkar Hilario MD 3Rd Mate(s) Estrella Estimated Blood Loss Estimated Blood Loss: 10 Medication(s) Medication(s): Fentanyl, Heparin, Lidocaine 1%, Nicardipine, Nitroglycerin and Versed Summary of Findings Indication: Abnormal stress test Access: 6 Fr slender right radial artery Catheters: [place] Findings: LM -normal caliber, angiographically normal LAD -medium caliber, 20% proximal to mid disease. Distal vessel without significant disease but sluggish, FANTA II flow as wraps around apex. Large diagonal without significant disease. Circumflex -medium caliber, angiographically normal. Gives off 3 OM's without significant disease. Ramus medium caliber, no significant disease RCA -dominant, large caliber, angiographically normal. RPDA and PLB's without significant disease. LVEDP -13 Arterial Closure: TR band Summary: 1. Essentially angiographically normal coronary arteries - FANTA II flow in distal LAD/diagonal potentially consistent with microvascular disease. 2. Normal intracardiac filling pressure Recommendations: No acute or high risk CAD to explain patient's presenting symptoms, abnormal stress test. Suspect stress test was false positive or secondary to microvascular disease. Continue ASCVD risk factor modification. Could consider trial of coronary vasodilators microvascular disease. Hemodynamics Rest Ao:: 121/80/116 Final Ao: 119/78/97 LV: 122/13 Recommendations Recommendations: Medical Therapy and/or Counseling Radiation Exposure (mGy) 724 Contrast (mls) 35 Anesthesia Moderate [id number] Procedural Complication(s) None Disposition PCU I attest to the content of the Intraoperative Record and any orders documented therein. Any exceptions are noted below. [facility] Card Cath Procedure Codes Cardiac Catheterization Procedure 1: Cardiovascular Cath Procedures: 35992 Coronaries and LHC (+/-LV) Moderate Sedation Procedure 1: Sedation/Anesthesia: 00277 Mod Sedation by the same physician;Init15 Min Child Age 5 & Up PG Care Time/CCT Total # of Minutes Spent Total Time Spent with Patient: Total time spent is greater than 50% in coordination of care (as documented) at patient's floor/unit and/or counseling patient:
--- NOTE | 2025-07-21 18:22 | Billing Data ---
Date of Service July 21, 2025 Coding Level of Care Code 85030 SUB INP/OBS CARE
[2025-07-21 19:16] VITALS: RESP 18
[2025-07-21 22:10] VITALS: O2SAT 97
[2025-07-22 04:12] LABS: Hematocrit (blood only) 42.1 % (42.0-52.0); Hemoglobin 14.7 g/dl (14.0-18.0); Immature Granulocytes # (auto) 0.04 K/uL (0.01-0.20); Immature Granulocytes % (auto) 0.6 %; Mean Corpuscular Hemoglobin 29.9 pg (25.0-34.0); Mean Corpuscular Volume 85.7 fL (80.0-100.0); Platelet Count 296 K/uL (130-400); RDW Standard Deviation 40.9 fL (36.4-46.3); Red Blood Count 4.91 M/uL (4.70-6.10); White Blood Count 7.07 K/ul (4.8-10.8)
[2025-07-22 04:27] LABS: Anion Gap 10.0 (3-11); Blood Urea Nitrogen 24.0 mg/dl (6-23); Calcium 9.6 mg/dl (8.6-10.3); Carbon Dioxide 24.0 mmol/L (21-32); Chloride 99.0 mmol/L (98-107); Creatinine Clr Calc Pharmacy 73.5 ml/min; Glucose 196.0 mg/dl (70-99(Fasting)); Potassium 4.0 mmol/L (3.5-5.1); Sodium 133.0 mmol/L (136-145)
--- NOTE | 2025-07-22 06:09 | Electrocardiogram Report ---
Test Reason : Blood Pressure : */* mmHG Vent. Rate : 67 BPM Atrial Rate : 67 BPM P-R Int : 200 ms QRS Dur : 104 ms QT Int : 398 ms P-R-T Axes : 24 -9 12 degrees QTcB Int : 420 ms Normal sinus rhythm Cannot rule out Anterior infarct , age undetermined Abnormal ECG When compared with ECG of 25-May-2025 10:32, Minimal criteria for Anterior infarct are now Present T wave inversion now evident in Inferior leads Confirmed by Juan Bland ([id number]) on 07/22/2025 6:09:00 AM Referred By: Kirit Manning Confirmed By: Juan Bland
[2025-07-22 07:12] VITALS: PULSE 66; TEMP 98.1
--- NOTE | 2025-07-22 07:55 | Hospitalist Progress Note ---
Date of Service July 22, 2025 Assessment & Plan Admission and Anticipated Discharge Date Admission Date: July 20, 2025 Results & Data Results & Data Vital Signs (Past 12 Hours) Vital Signs Temp Pulse Pulse Resp BP Pulse Ox O2 Del Method 07/22/25 07:11 36.7 C 66 18 148/77 H 97 CPAP 07/22/25 03:49 62 07/22/25 02:48 36.5 C 51 L 18 131/69 97 CPAP 07/21/25 22:31 36.9 C 62 18 109/71 97 Room Air 07/21/25 21:30 36.7 C 60 18 119/73 97 Room Air 07/21/25 20:28 36.6 C 64 18 126/73 Room Air Resident Activity Tracking Resident Involvement: Resident Care Provided Care Provided: Adult Hospital Medicine
--- NOTE | 2025-07-22 08:31 | Cardiology Progress Note ---
Date of Service July 22, 2025 Assessment & Plan (1) Chest pain, exertional: Plan: Suspect his stress test and chest pain are related to small vessel diabetic disease and endothelial dysfunction. Will tailor medical therapy appropriately. He will be discharged to home later today. Will get him set up with cardiac rehab. (2) Abnormal cardiovascular stress test: (3) Type 2 diabetes mellitus: (4) Hypercholesterolemia: Plan Cardiology will follow-up with him after discharge. Thank you for allowing me to participate in his care. Admission and Anticipated Discharge Date Admission Date: July 20, 2025 Supervising Physician Co-Signing Physician Notes I personally examined the patient and verified all lam points of history and exam, discussed case, and agree with decision making with Dr Polk Feels okay post cath. Still somewhat groggy.. Vitals noted, in general he is awake and alert pleasant no distress. HEENT normocephalic atraumatic mucous membranes moist. Breathing unlabored no accessory muscle use good effort. Skin without rashes pallor or icterus. Neuro without focal deficits. Labs and diagnostics noted. Unstable anginanew/worsening chest pain and failed stress test. Cath fortunately without major obstructive disease. Will want to discuss with cardiology regarding most possible etiology of failed stress test and symptomsI suspect the poor flow probably is real for distal disease. Probably if the stress test showed ST depressions that would fit with this, and med management would be directed as such. If the stress test showed ST elevations, then vasospasm would be more plausible. Uncontrolled type 2 diabetesdiscussed lifestyle change/etc. Discussed why to care ("high sugars clogged arteries"). A1c noted8.9 Low B12 supplement p.o., recheck in a few months. Parenteral supplementation if still low. mild persistent hypercalcemiafirst noticed in April, Again 07/20. However, both calcium and PTH were normal today. otherwise as above Subjective Amazingly he did not have significant obstructive coronary disease. He in all likelihood has small vessel and endothelial dysfunction. We discussed tailoring his therapy to controlling his diabetes controlling his lipids I would recommend that he be on aspirin and statin a low-dose of a calcium channel sherine as well as BUCK inhibitor for his diabetes. I also strongly recommended that he follow- up with cardiac rehab due to his exertional chest discomfort so that we can follow him on his medications and see how he is doing. Nitrates can also be added to his medical therapy regimen if he continues to have symptoms. Review of Systems Review of Systems: All systems reviewed & are unremarkable except as noted in HPI & below Physical Exam Physical Exam: Awake alert oriented no distress Respiratory: normal respiratory effort, lungs clear to auscultation Cardiovascular: RRR, no murmur, no edema Results & Data Vital Signs (Past 12 Hours) Vital Signs Temp Pulse Pulse Resp BP Pulse Ox O2 Del Method 07/22/25 07:11 36.7 C 66 18 148/77 H 97 CPAP 07/22/25 03:49 62 07/22/25 02:48 36.5 C 51 L 18 131/69 97 CPAP 07/21/25 22:31 36.9 C 62 18 109/71 97 Room Air 07/21/25 21:30 36.7 C 60 18 119/73 97 Room Air Laboratory Results Abnormal lab results 07/21/25 07/21/25 07/21/25 Range/Units 12:49 17:56 19:22 MPV (9.4-12.4) fL Eos # (Auto) (0.00-0.50) K/uL Sodium (136-145) mmol/L BUN (6-23) mg/dl Glucose (70-99(Fasting)) mg/dl POC Glucose 138 H 153 H 189 H (70-99) mg/dl 07/22/25 07/22/25 Range/Units 03:45 07:14 MPV 9.0 L (9.4-12.4) fL Eos # (Auto) 0.53 H (0.00-0.50) K/uL Sodium 133 L (136-145) mmol/L BUN 24 H (6-23) mg/dl Glucose 196 H (70-99(Fasting)) mg/dl POC Glucose 168 H (70-99) mg/dl
[2025-07-22] MEDS: ASPIRIN 81 MG ECTAB PO SCH (09:00)
--- NOTE | 2025-07-22 09:15 | Discharge Summary ---
Date of Service July 22, 2025 Admission HPI Per Admitting Provider 49 yo M with PMHx of T2DM, AIME on CPAP, HLD who presents to the hospital due to chest pain during treadmill stress test with abnormal EKG findings. Patient has had history of months of chest pain for which PCP had him do a stress test. During stress test today, patient felt dizzy. After the test was completed, patient reports he had intermittent, mid-chest, squeezing, localized chest pain. EKG showed ST elevation in leads V1-V3. Denies radiation of chest pain. Patient reports in addition to chest pain, he experienced tunnel vision and pre-syncopal feelings. Currently, reports heartburn but denies chest pain. States CP is mainly with exertion. Reports family history of bradycardia in father and brother - both of whom have pacemakers. Denies palpitations or SOB currently. Denies tobacco, alcohol, or illicit drug use. Admission Exam Per Admitting Provider Constitutional: WD/WN, vitals as above Respiratory: normal respiratory effort, lungs clear to auscultation Cardiovascular: RRR, no murmur, no edema Gastrointestinal (Abdomen): normal bowel sounds, soft, nontender, no hepatosplenomegaly Musculoskeletal: Head/Neck/Chest: + abnormal inspection of chest wall and + abnormal palpation of chest wall (tender) Skin: no rashes, warm and dry Psychiatric: A+Ox3, euthymic affect Principal Diagnosis chest pain Discharge Exam Constitutional WD/WN, vitals as above Respiratory normal respiratory effort, lungs clear to auscultation Cardiovascular RRR, no murmur, no edema Gastrointestinal (Abdomen) normal bowel sounds, soft, nontender, no hepatosplenomegaly Skin no rashes, warm and dry Psychiatric A+Ox3, euthymic affect Discharge Data Allergies Allergy/AdvReac Type Severity Reaction Status Date / Time Penicillins Allergy Unknown Unknown Verified 07/21/25 13:57 fentanyl AdvReac Intermediate Vomiting Verified 07/21/25 13:57 Consultations 07/20/25 15:03 ED Decision to Admit Stat 07/20/25 16:17 Consult Cardiology Routine 07/22/25 08:31 Consult Cardiac Rehabilitation Routine Procedures Performed Operation Date: 07/21/25 14:00 Actual Procedures p Cineradiography w/Routine Exam - Omkar Hilario MD p Cath, Left with Cors and Vent - Omkar Hilario MD Ordered Studies 07/21/25 06:36 CL Cath Imgs for PACS use only Routine Hospital Course (1) Hypercholesterolemia: (2) Type 2 diabetes mellitus: (3) Abnormal cardiovascular stress test: (4) Chest pain, exertional: (5) Acute hyperglycemia: Plan 49 yo M with PMHx of T2DM, AIME on CPAP, HLD who presents to the hospital due to chest pain during treadmill stress test with abnormal EKG findings. #Unstable angina - Chest tightness after treadmill stress test, EKG during treadmill stress test showed ST elevation in V1-V3 - Cardio consult, catheterization completed 07/21, showed essentially normal coronary arteries, positive microvascular disease, normal intracardiac filling pressure - Trops wnl (5.4, 7.9) - CBC, BMP reassuring - Likely his chest pain is multifactorial, due to angina, GERD, musculoskeletal origin, however most important area to start management will be lifestyle changes including diet and exercise, discussed extensively with patient - Prescribed daily atorvastatin, amlodipine, lisinopril, ASA 81 mg, nitro 0.4 prn upon discharge - outpatient BMP in 1 week - Follow up with PCP within a week of discharge for further management #T2DM - Insulin protocol - HgbA1C 9.9 (04/2025) - Repeat HgbA1C 8.9, lipid panel shows elevated triglycerides and VLDL, counseled regarding the importance of lifestyle changes moving forward to decrease risk of OR/other cardiac pathologies - Lifestyle and diet changes discussed with patient #GERD - Continue home famotidine 40mg PO BID #Restless Leg Syndrome - Continue home ropinarole 3 mg PO HS Dispo: discharge Diet: Heart healthy/T2DM Code status: Full Total Time Total Time Spent Total Time Spent (In Minutes): <30 Discharge Plan Discharge Items Patient Disposition: Home - Self-Care Reason For Visit: FAILED STRESS TEST, CHEST PAIN Discharge Diagnosis: Unstable angina Condition on Discharge: Fair Activity: Per Instructions section Non-emergency contact: Primary Care Provider Call non-emergency contact if: you have any medication questions and your symptoms worsen Follow-up/Referrals: Fam Perry DO [Primary Care Provider] - 07/27/25 10:00 am (Hospital follow up on July 27 at 10 am with an arrival time of 9:45 pm.) Diet: Heart Healthy Ambulatory Orders: Basic Metabolic Panel (Routine) Timeframe: 1 Week Location: Determined by Patient Ordered By: Otilia Ballard Attending Provider Instructions: You were seen in the emergency department due to chest pain that did not go away after having an abnormal stress test. The cardiology team was able to see you and perform a heart catheterization, to look for any blockages in the blood vessels that feed your heart. Your cardiac catheterization test did not show concerning blockages. We believe your chest pain could be due to multiple factors including brief decrease in blood flow to your cardiac muscles, indigestion or acid reflux, pain from the muscles or cartilages of your chest, and increased stress levels. One of the most important factors that would help make your overall health better will be working on lifestyle changes which will help control your diabetes. I would recommend at least 20-30 minutes of walking daily as a great place to start. Another component to lifestyle will be focusing on healthy eating habits, including increasing vegetable and fruit intake, increasing lean protein intake such as chicken or turkey, decreasing consumption of red meats such as beef, and decreasing simple/starchy carbs. Below, I have laid out medications we will be sending to your pharmacy to assist with management moving forward: Blood pressure medications Amlodipine 2.5 mg, one tab by mouth daily Lisinopril 10 mg, one tab by mouth daily Cholesterol medication (decrease the production of LDL or "bad cholesterol" which can clog arteries) Atorvastatin 40 mg, one tab by mouth daily Anti-platelet medication (decrease the chance of clots) Aspirin 81 mg, one tab by mouth daily Chest pain (will open your vessels to assist with relief of acute pain) Nitroglycerin 0.4 mg, sublingual, to be used as needed if you have chest pain (You can use up to 3 times daily, each 5 minutes apart, but if you are not noticing a difference by 2nd dose, please visit your closest ED.) Please follow with your primary care provider within a week to discuss new changes and for further management. Thank you for allowing us to participate in your care. Pending Studies at Discharge: No Stand-Alone Forms: [facility] [employer], Smoking Cessation Medications and DC Order Prescriptions: New cyanocobalamin (vitamin B-12) 1,000 mcg tablet 1,000 mcg PO DAILY Qty: 30 3RF aspirin 81 mg tablet 81 mg PO DAILY 30 Days Qty: 30 0RF atorvastatin 40 mg tablet 40 mg PO DAILY 30 Days Qty: 30 0RF amlodipine 2.5 mg tablet 2.5 mg PO DAILY 30 Days Qty: 30 0RF lisinopril 10 mg tablet 10 mg PO DAILY 30 Days Qty: 30 0RF nitroglycerin 0.4 mg tablet, sublingual 0.4 mg sublingual Q5M PRN (Reason: chest pain) 30 Days Qty: 30 0RF Continued ropinirole 3 mg tablet 3 mg PO HS famotidine 40 mg tablet 40 mg PO BID Januvia 100 mg tablet 100 mg PO DAILY Discharge Orders: Discharge Order (Routine); Ordered 07/22/25 Ordered By: Otilia Polk Admission Data Admit Date/Time: 07/20/25 16:43 Attending Provider: Chung Aquino Admit Provider: Otilia Polk Primary Care Provider: Fam Perry Other Providers: Nilson Fairbanks; Leanna Francisco Other Interventions: Discharge Summary Assessment (RN) Last Done: 07/22/25 10:14 Supervising Physician Co-Signing Physician Notes I personally examined the patient and verified all lam points of history and exam, discussed case, and agree with decision making with Dr Polk Feels okay. No new complaints. Feels up to going home. Discussed with cardiologyassistance greatly appreciated.. Vitals noted, in general he is awake and alert pleasant no distress. HEENT normocephalic atraumatic mucous membranes moist. Breathing unlabored no accessory muscle use good effort. Skin without rashes pallor or icterus. Neuro without focal deficits. Labs and diagnostics noted. Unstable anginanew/worsening chest pain and failed stress test. Cath fortunately without major obstructive disease. Almost certainly the small vessel disease is symptomatic. Med management and secondary risk reduction. Discussed lifestyle changes extensively and then went over med list med by med. Uncontrolled type 2 diabetesdiscussed lifestyle change/etc. Discussed why to care ("high sugars clogged arteries"). A1c noted8.9. Discussed that his sugars have been surprisingly easy to control in the hospitalemphasizing the fact that his sugar is almost entirely driven by his eating habits (and emphasizing that improved eating habits and regular exercise could affect dramatic improvement) Low B12 supplement p.o., recheck in a few months. Parenteral supplementation if still low. mild persistent hypercalcemiafirst noticed in April, Again 07/20. However, both calcium and PTH were normal after otherwise as above, safe/stable for home. Resident Activity Tracking Resident Involvement: Resident Care Provided Care Provided: Adult [facility]
[2025-07-22 10:16] VITALS: BP 123/79
--- NOTE | 2025-07-22 13:10 | Billing Data ---
Date of Service July 22, 2025 Coding Level of Care Code 00294 IN/OBS DISCH 30 MIN/LESS
--- NOTE | 2025-07-22 13:11 | Billing Data ---
Date of Service July 22, 2025 Coding Level of Care Code 92118 IN/OBS DISCH 30 MIN/LESS
[2025-07-22] MEDS ORDERED: ATORVASTATIN 20 MG TAB PO SCH (21:00)
--- NOTE | 2025-07-26 10:08 | Coding Query ---
CODING QUERY FOR UNCONTROLLED DIABETES To promote full compliance with coding requirements relating to patient care, provider participation is requested in all cases of heel seam rubber uncertainty. Please assist us with the question(s) below: Coding Question: The term uncontrolled Diabetes was used throughout the record. To be able to code this diagnosis properly, could you please clarify the diagnosis below: ( ) Uncontrolled Diabetes meaning hypoglycemia (x ) Uncontrolled Diabetes meaning hyperglycemia ( ) Other (please specify) Principal Diagnosis: "that condition established after study, to be chiefly responsible for occasioning the admission of the patient to the hospital for care." Co-Existing Principal Diagnosis: "when two or more diagnoses equally meet the criteria for principal diagnosis as determined by the circumstances of admission, diagnostic work up, and/or therapy provided, and the Alphabetic Index, Tabular List, or another coding guideline does not provide sequencing direction, any one of the diagnoses may be sequenced first." "When the physician has documented what appears to be a current diagnosis in the body of the record, but has not included the diagnosis in the final diagnostic statement, the physician should be asked whether the diagnosis should be added." (Source Coding [facility] 2 QTR90. p3-4) BERT
== END 2025-07-22 11:30 | disposition home or self-care (01) | DRG 287 ==
LOC: ED 12:52 → 2E 16:43